=== PATIENT | female | born 1975 | race Caucasian/White ===

== ENCOUNTER 2020-09-06 18:32 | Emergency (ER) | payer BC, SELFPAY ==
[2020-09-06 18:52] VITALS: BP 190/102; PULSE 79; RESP 14; TEMP 36.1; O2SAT 100; BMI 31.2
--- NOTE | 2020-09-06 19:03 | XRR_ITS ---
PROCEDURE INFORMATION: Exam: XR Chest, 2 Views Exam date and time: 09/06/2020 7:26 PM Age: 45 years old Clinical indication: Condition or disease; Other: Hypertension; Patient HX: HTN x 1 week TECHNIQUE: Imaging protocol: XR of the chest Views: 2 views. COMPARISON: [facility] Chest 2 views 12/13/2017 3:59 PM FINDINGS: Lungs: Unremarkable. No consolidation. Pleural spaces: Unremarkable. No pleural effusion. No pneumothorax. Heart/Mediastinum: Unremarkable. No cardiomegaly. Bones/joints: Unremarkable. XR/XR chest 2V* [id number] IMPRESSION: No acute findings.
[2020-09-06 19:36] VITALS: BP 167/101; PULSE 79; RESP 16; O2SAT 98
[2020-09-06 19:54] LABS: Basophils # 0.1 10^3/uL (0.0-0.1); Basophils % 0.9 %; Eosinophils # 0.3 10^3/uL (0.0-0.8); Eosinophils % 3.6 %; Hematocrit 43.3 % (37.0-47.0); Hemoglobin 14.1 g/dL (11.5-15.3); Lymphocytes # 2.2 10^3/uL (0.8-4.8); Mean Corpuscular HGB Conc 32.6 g/dL (30.0-36.0); Mean Corpuscular Hemoglobin 29.4 pg (28.0-34.0); Mean Corpuscular Volume 90.2 fL (81-99); Mean Platelet Volume 10.6 fL (7.4-10.4); Monocytes # 0.6 10^3/uL (0.2-0.9); Monocytes % 7.9 %; Neutrophils # 4.59 10^3/uL (1.8-7.7); Neutrophils % 59.3 %; Nucleated Red Blood Cells % 0 %; Platelet Count 258 10^3/cmm (130-400); White Blood Count 7.7 10^3/uL (4.0-10.0)
[2020-09-06 20:13] LABS: Troponin(5th) Baseline 6 ng/L (0-10)
[2020-09-06 20:18] LABS: Add Urine Microscopic? NO
[2020-09-06 20:22] LABS: Alanine Aminotransferase 11 U/L (0-33); Albumin Level 4.4 g/dL (3.5-5.2); Alkaline Phosphatase 54 IU/L (35-105); Aspartate Amino Transferase 13 U/L (0-32); Blood Urea Nitrogen 8 mg/dL (6-20); Calcium 9.7 mg/dL (8.5-10.5); Carbon Dioxide 27 mmol/L (22-29); Chloride 100 mmol/L (98-107); Globulin 2.7 g/dL (1.3-4.6); Glomerular Filtration Rate 108.1 mL/min (90-130); Glucose 89 mg/dL (65-115); NT Pro B Type Natriuretic Pept 55 pg/mL (0-125); Osmolality Calculated 282 mOsm/kg (285-295); Sodium 137 mmol/L (136-145); Thyroid Stimulating Hormone 1.96 uIU/mL (0.27-4.20); Total Bilirubin 0.4 mg/dL (0.15-1.2); Total Protein 7.1 g/dL (6.6-8.7)
[2020-09-06 20:24] LABS: Bilirubin Urine Neg (Negative); Blood Urine Neg (Negative); Glucose Urine UA Norm (Normal); HCG Qualitative Urine. Negative (Negative); Ketones Urine Negative (Negative); Leukocyte Esterase Urine Negative (Negative); Nitrate Urine Negative (Negative); Protein Urine Neg (Negative); Urine Appearance Clear (CLEAR); Urine Color Straw (Yellow); Urobilinogen Urine Norm (Negative); pH Urine 5 (5-7)
[2020-09-06 20:48] VITALS: BP 187/101; PULSE 73; O2SAT 100
--- NOTE | 2020-09-06 20:52 | W.ED.GENADLT ---
HPI - General Adult General: Chief complaint: General Medical Stated complaint: HTN Time Seen by Provider: 09/06/20 18:54 Source: patient Mode of arrival: ambulatory Limitations: no limitations History of Present Illness: HPI narrative: The patient is a 45-year-old female patient who comes into the emergency department stating that her blood pressure has been elevated in the last 2 weeks. Her systolic blood pressure has been ranging from the 150s to 160s and her primary care provider started her on hydrochlorothiazide 12.5 mg daily. She says her blood pressure is still elevated. She also complains of left sided chest pain that is non-radiating. No nausea or vomiting. No headaches or dizziness. No shortness of breath or difficulty breathing. She drinks multiple cups of coffee every day. Onset (ago): week(s) (2) Associated symptoms: Reports chest pain; Deny dyspnea, headache(s), nausea, rash, palpitations or vomiting Review of Systems General: Reports: 10 or more systems reviewed and unremarkable except in HPI and below Const: Denies: fever(s), chills or body aches Eyes: Denies: change in vision or blurry vision ENMT: Denies: throat pain, enlarged tonsils, odynophagia, hoarseness, mouth pain or swelling of lips/tongue Card: Reports: chest pain; Denies: palpitations, irregular heart rhythm, edema or swelling of feet/ankles Resp: Denies: dyspnea, productive cough or non-productive cough GI: Denies: abdominal pain, nausea or vomiting : Denies: flank pain, difficulty voiding, dysuria, urinary frequency, urinary urgency or urinary hesitancy Musc: Denies: neck pain, back pain or extremity swelling Skin/Breast: Denies: rash, pruritus or erythema Neuro: Denies: headache(s), numbness in extremities or weakness in extremities Endo: Denies: polyuria, polydipsia or tired all the time Physical Exam Const: COMMON NORMALS: no acute distress, average body habitus, patient oriented x3, no limitations, healthy appearing, alert and well nourished HENMT: COMMON NORMALS: normocephalic, atraumatic and moist oral mucous membranes HEAD & SCALP: normocephalic and atraumatic Neck/C-Spine: COMMON NORMALS: no meningeal signs and no JVD Resp: COMMON NORMALS: normal respiratory effort, No retractions, No use of accessory muscles, clear to auscultation bilaterally and percussion normal AUSCULTATION: clear to auscultation bilaterally PERCUSSION: percussion normal Cardio: COMMON NORMALS: no JVD, regular rate, regular rhythm, S1 normal heart sound present, S2 normal heart sound present, No gallops present (Cardio), No clicks present (Cardio), No murmurs present (Cardio), No rub (Cardio) and Peripheral pulses 2+ throughout RATE: regular rate RHYTHM: regular rhythm HEART SOUNDS: S1 normal heart sound present and S2 normal heart sound present PERIPHERAL PULSES: Peripheral pulses 2+ throughout GI: COMMON NORMALS: Normal to inspection, nondistended, normoactive bowel sounds present, Soft to palpation, non-tender, No hepatosplenomegaly present, no masses and no bruits PALPATION: Yes Soft to palpation and Yes No hepatosplenomegaly present Extremity: COMMON NORMALS: normal to inspection, full ROM, capillary refill normal, no calf tenderness and no pedal edema Neuro: COMMON NORMALS: patient oriented x3 SENSORIUM/ORIENTATION: Yes alert MENINGEAL SIGNS: Yes no meningeal signs Skin: COMMON NORMALS: no rashes or lesions noted, no wounds, turgor normal, no jaundice, no petechiae and no mottling GENERAL SKIN EXAM: no rashes or lesions noted and turgor normal Course Reevaluation(s): Reevaluation #1: Discussed her lab and imaging findings with her. Labs unremarkable, chest x-ray unremarkable. Blood pressure is elevated but not high enough to require intervention in the emergency department. Advised her to increase the dose of hydrochlorothiazide to 25 mg daily and continue to check her blood pressures and follow-up with her primary care provider. She has an appointment with her primary care provider next week. She voiced understanding and is in agreement with the plan. Time: 20:52 Vital Signs: Vital signs: Vital Signs Temperature 97.0 F L 09/06/20 18:52 Pulse Rate 84 09/06/20 21:02 Respiratory Rate 16 09/06/20 21:02 Blood Pressure 167/100 09/06/20 21:02 Pulse Oximetry 100 09/06/20 21:02 MDM - General Adult MDM Narrative: Medical decision making narrative: 44-year-old female patient with hypertension. She was recently started on hydrochlorothiazide less than a week ago but her blood pressure still elevated. Evaluation in the emergency department is unremarkable and she is discharged home. Medical Records: Attestation: I reviewed the patient's medical records. Lab Data: Attestation: I reviewed the patient's lab results. Labs: Lab Results 09/06/20 09/06/20 09/06/20 Range/Units 19:45 19:45 19:45 WBC 7.7 (4.0-10.0) 10^3/ uL RBC 4.80 (4.1-5.3) 10^6/u L Hgb 14.1 (11.5-15.3) g/dL Hct 43.3 (37.0-47.0) % MCV 90.2 (81-99) fL MCH 29.4 (28.0-34.0) pg MCHC 32.6 (30.0-36.0) g/dL RDW 12.0 L (12.1-15.1) % Plt Count 258 (130-400) 10^3/c mm MPV 10.6 H (7.4-10.4) fL Neut % (Auto) 59.3 % Lymph % (Auto) 28.0 % [place] % (Auto) 7.9 % Eos % (Auto) 3.6 % Baso % (Auto) 0.9 % Neut # (Auto) 4.59 (1.8-7.7) 10^3/u L Lymph # (Auto) 2.2 (0.8-4.8) 10^3/u L [place] # (Auto) 0.6 (0.2-0.9) 10^3/u L Eos # (Auto) 0.3 (0.0-0.8) 10^3/u L Baso # (Auto) 0.1 (0.0-0.1) 10^3/u L Nucleated RBC % (a uto) 0 % Nucleated RBCs # 0.0 /100WBC Sodium 137 (136-145) mmol/L Potassium 4.0 (3.5-5.1) mmol/L Chloride 100 (98-107) mmol/L Carbon Dioxide 27 (22-29) mmol/L Anion Gap 14.0 (5-19) BUN 8 (6-20) mg/dL Creatinine 0.6 (0.5-0.9) mg/dL GFR Calculation 108.1 (90-130) mL/min Glucose 89 (65-115) mg/dL Calculated Osmolal ity 282 L (285-295) mOsm/k g Calcium 9.7 (8.5-10.5) mg/dL Total Bilirubin 0.4 (0.15-1.2) mg/dL AST 13 (0-32) U/L ALT 11 (0-33) U/L Alkaline Phosphata se 54 (35-105) IU/L Troponin T Baselin e 6 (0-10) ng/L NT-Pro-B Natriuret Pep 55 (0-125) pg/mL Total Protein 7.1 (6.6-8.7) g/dL Albumin 4.4 (3.5-5.2) g/dL Globulin 2.7 (1.3-4.6) g/dL TSH 1.96 (0.27-4.20) uIU/ mL HCG, Qual (Negative) Urine Color (Yellow) Urine Appearance (CLEAR) Urine pH (5-7) Ur Specific Gravit y (1.005-1.030) Urine Protein (Negative) Urine Glucose (UA) (Normal) Urine Ketones (Negative) Urine Blood (Negative) Urine Nitrate (Negative) Urine Bilirubin (Negative) Urine Urobilinogen (Negative) mg/dL Ur Leukocyte Kim ase (Negative) 09/06/20 09/06/20 Range/Units 20:08 20:08 WBC (4.0-10.0) 10^3/ uL RBC (4.1-5.3) 10^6/u L Hgb (11.5-15.3) g/dL Hct (37.0-47.0) % MCV (81-99) fL MCH (28.0-34.0) pg MCHC (30.0-36.0) g/dL RDW (12.1-15.1) % Plt Count (130-400) 10^3/c mm MPV (7.4-10.4) fL Neut % (Auto) % Lymph % (Auto) % [place] % (Auto) % Eos % (Auto) % Baso % (Auto) % Neut # (Auto) (1.8-7.7) 10^3/u L Lymph # (Auto) (0.8-4.8) 10^3/u L [place] # (Auto) (0.2-0.9) 10^3/u L Eos # (Auto) (0.0-0.8) 10^3/u L Baso # (Auto) (0.0-0.1) 10^3/u L Nucleated RBC % (a uto) % Nucleated RBCs # /100WBC Sodium (136-145) mmol/L Potassium (3.5-5.1) mmol/L Chloride (98-107) mmol/L Carbon Dioxide (22-29) mmol/L Anion Gap (5-19) BUN (6-20) mg/dL Creatinine (0.5-0.9) mg/dL GFR Calculation (90-130) mL/min Glucose (65-115) mg/dL Calculated Osmolal ity (285-295) mOsm/k g Calcium (8.5-10.5) mg/dL Total Bilirubin (0.15-1.2) mg/dL AST (0-32) U/L ALT (0-33) U/L Alkaline Phosphata se (35-105) IU/L Troponin T Baselin e (0-10) ng/L NT-Pro-B Natriuret Pep (0-125) pg/mL Total Protein (6.6-8.7) g/dL Albumin (3.5-5.2) g/dL Globulin (1.3-4.6) g/dL TSH (0.27-4.20) uIU/ mL HCG, Qual Negative (Negative) Urine Color Straw (Yellow) Urine Appearance Clear (CLEAR) Urine pH 5 (5-7) Ur Specific Gravit y 1.010 (1.005-1.030) Urine Protein Neg (Negative) Urine Glucose (UA) Norm (Normal) Urine Ketones Negative (Negative) Urine Blood Neg (Negative) Urine Nitrate Negative (Negative) Urine Bilirubin Neg (Negative) Urine Urobilinogen Norm (Negative) mg/dL Ur Leukocyte Kim ase Negative (Negative) Imaging Data^: CXR: Attestation: I personally reviewed and interpreted this imaging study as follows: My impression: No acute findings EKG Data^: EKG 1: Attestation: I personally reviewed and interpreted this EKG as follows: EKG interpretation date: 09/06/20 EKG interpretation time: 19:14 Prior EKG tracings: not available for review Interpretation: Normal sinus rhythm. Heart rate [address] changes. Normal axis. Discharge Plan Discharge Patient Disposition: Home Clinical Impression: Hypertensive urgency Condition: Stable Discharge Orders: Discharge ED (Routine); Ordered 09/06/20 Ordered By: Nikki Aleman Referrals: Rd Sharma DO [Primary Care Provider] - 4-7 days Discharge Diet: Low Salt Discharge Activity: Increase activity as tolerated Patient Instructions: Hypertensive Crisis (ED), Hypertension (ED) Activity Restrictions/Additional Instructions: Return for any new or worsening symptoms. Follow-up with your primary care provider as scheduled next week. I will advise that you stop caffeinated drinks once your blood pressure is better controlled. Increase the dose of the hydrochlorothiazide to 25 mg daily. If your blood pressure continues to go up please return to be evaluated. Coding Level of Care Code ED [employer] for Chg Fwd Exam Comprehensive
[2020-09-06 21:02] VITALS: BP 167/100; PULSE 84; RESP 16; O2SAT 100
== END 2020-09-06 21:04 | disposition home or self-care (01) ==
PROVIDERS: Emergency Provider Family Medicine; PCP Internal Medicine
DX: I16.0 Hypertensive urgency (principal)
CPT/HCPCS: 12345; 71046; 80053; 81003; 81025; 83880; 84443; 84484; 85025; 99283

== ENCOUNTER 2022-09-01 16:55 | Outpatient (CLI) | payer OTHER, SELFPAY ==
[2022-09-05 11:51] LABS: Lymphoma Profile (BBPL) See Report
[2022-09-09 14:03] LABS: PD-L1 (Clone 22C3) by IHC BBPL See Report
== END 2022-09-01 16:56 | disposition home or self-care (01) ==
LOC: LAB 16:55
PROVIDERS: PCP Internal Medicine; Visit Provider Surgery
DX: R22.32 Localized swelling, mass and lump, left upper limb (principal)
CPT/HCPCS: 88184; 88185; 88309; 88341; 88342

== ENCOUNTER 2022-09-22 08:08 | Oncology outpatient (recurring) (ONCR) | payer SELFPAY | END 2022-09-27 23:59 | disposition home or self-care (01) | LOC: ONCMED 08:08 | PROVIDERS: PCP Internal Medicine; Visit Provider Internal Medicine Hematology & Oncology | DX: C80.1 Malignant (primary) neoplasm, unspecified (principal); C77.3 Secondary and unspecified malignant neoplasm of axilla and upper limb lymph nodes ==

== ENCOUNTER 2022-11-09 17:09 | Outpatient (CLI) | payer OTHER, SELFPAY ==
[2022-11-09 18:21] LABS: Basophils # 0.1 10^3/uL (0.0-0.1); Basophils % 0.9 %; Eosinophils # 0.3 10^3/uL (0.0-0.8); Eosinophils % 3.9 %; Hematocrit 39.7 % (37.0-47.0); Hemoglobin 13.3 g/dL (11.5-15.3); Lymphocytes # 2.3 10^3/uL (0.8-4.8); Lymphocytes % 33.1 %; Mean Corpuscular HGB Conc 33.5 g/dL (30.0-36.0); Mean Corpuscular Hemoglobin 30.9 pg (28.0-34.0); Mean Corpuscular Volume 92.1 fl (81-99); Mean Platelet Volume 9.7 fL (7.4-10.4); Monocytes # 0.6 10^3/uL (0.2-0.9); Monocytes % 8.5 %; Neutrophils # 3.65 10^3/uL (1.8-7.7); Neutrophils % 53.3 %; Nucleated Red Blood Cells % 0 %; Platelet Count 259 10^3/cmm (130-400); Red Blood Count 4.31 10^6/uL (4.1-5.3); White Blood Count 6.9 10^3/uL (4.0-10.0)
[2022-11-09 18:51] LABS: Alanine Aminotransferase 34 U/L (0-33); Albumin Level 4.7 g/dL (3.5-5.2); Alkaline Phosphatase 71 U/L (35-105); Anion Gap 14.2 (5-19); Aspartate Amino Transferase 27 U/L (0-32); Blood Urea Nitrogen 15 mg/dL (6-20); Carbon Dioxide 26 mmol/L (22-29); Chloride 102 mmol/L (98-107); Globulin 2.6 g/dL (1.3-4.6); Glomerular Filtration Rate 132.2 mL/min (90-130); Glucose 88 mg/dL (65-115); Osmolality Calculated 286 mOsm/kg (285-295); Potassium 4.2 mmol/L (3.5-5.1); Sodium 138 mmol/L (136-145); Total Bilirubin 0.4 mg/dL (0.15-1.2); Total Protein 7.3 g/dL (6.6-8.7)
== END 2022-11-09 17:10 | disposition home or self-care (01) ==
LOC: LAB 17:16
PROVIDERS: PCP Internal Medicine; Visit Provider Internal Medicine Hematology & Oncology
DX: C80.1 Malignant (primary) neoplasm, unspecified (principal)
CPT/HCPCS: 36415; 80053; 85025

== ENCOUNTER 2022-11-21 08:00 | Oncology outpatient (recurring) (ONCR) | payer OTHER, SELFPAY ==
[2022-11-21 08:35] VITALS: BMI 30.7
[2022-11-21 08:45] LABS: Basophils # 0.1 10^3/uL (0.0-0.1); Basophils % 1.3 %; Eosinophils # 0.3 10^3/uL (0.0-0.8); Eosinophils % 6.5 %; Hematocrit 39.2 % (37.0-47.0); Hemoglobin 13.3 g/dL (11.5-15.3); Lymphocytes # 1.8 10^3/uL (0.8-4.8); Lymphocytes % 34.1 %; Mean Corpuscular HGB Conc 33.9 g/dL (30.0-36.0); Mean Corpuscular Hemoglobin 30.9 pg (28.0-34.0); Mean Corpuscular Volume 91.2 fl (81-99); Mean Platelet Volume 9.8 fL (7.4-10.4); Monocytes # 0.5 10^3/uL (0.2-0.9); Monocytes % 8.8 %; Neutrophils # 2.56 10^3/uL (1.8-7.7); Neutrophils % 49.1 %; Nucleated Red Blood Cells % 0 %; Platelet Count 232 10^3/cmm (130-400); White Blood Count 5.2 10^3/uL (4.0-10.0)
[2022-11-21 09:10] LABS: Alanine Aminotransferase 21 U/L (0-33); Albumin Level 4.6 g/dL (3.5-5.2); Alkaline Phosphatase 67 U/L (35-105); Anion Gap 14.3 (5-19); Aspartate Amino Transferase 18 U/L (0-32); Blood Urea Nitrogen 12 mg/dL (6-20); Calcium 9.5 mg/dL (8.5-10.5); Carbon Dioxide 26 mmol/L (22-29); Chloride 103 mmol/L (98-107); Creatinine Clr Calc Pharmacy 148.8028; Globulin 2.5 g/dL (1.3-4.6); Glomerular Filtration Rate 132.2 mL/min (90-130); Glucose 91 mg/dL (65-115); Immunoglobulin IGG 957 mg/dL (700-1600); Osmolality Calculated 287 mOsm/kg (285-295); Potassium 4.3 mmol/L (3.5-5.1); Sodium 139 mmol/L (136-145); Thyroid Stimulating Hormone 1.17 uIU/mL (0.27-4.20); Total Bilirubin 0.4 mg/dL (0.15-1.2); Total Protein 7.1 g/dL (6.6-8.7)
[2022-11-21 09:28] LABS: Hepatitis A Antibody IgM Non-Reactive (Nonreactive); Hepatitis B Core AB, Total Non-Reactive (Nonreactive); Hepatitis B Surface Antigen Non-Reactive (Nonreactive); Hepatitis C Virus Antibody Non-Reactive (Nonreactive)
[2022-11-21 09:30] LABS: Hepatitis B Surface AB < 3.5 (11.5-1000)
[2022-11-21 11:29] LABS: Cortisol Random 12.98 ug/dL (2.47-19.5)
[2022-11-21] MEDS: acetaminophen 325 mg Tablet 650 MG PO (11:36)
[2022-11-21] MEDS: sodium chloride 0.9% 250 ML 75 ML IV (11:36)
[2022-11-21] MEDS: diphenhydrAMINE 50 mg/mL SDV 1mL 25 MG IVP (11:37)
[2022-11-21] MEDS: dexamethasone 20 MG in sodium chloride 0.9% 50 ML 188 MG IV (11:38)
[2022-11-21] MEDS: famotidine 20 mg/2 mL INJ IVP (11:38)
[2022-11-21] MEDS: palonosetron 0.25 mg/5 mL SDV IVP (11:38)
[2022-11-21] MEDS: pembrolizumab 200 MG in sodium chloride 0.9% 250 ML 516 MG IV (12:13)
[2022-11-21] MEDS: PACLitaxeL 152 MG in sodium chloride 0.9%(non-DEHP) 250 ML 275.33 MG IV (13:09)
[2022-11-21] MEDS: diphenhydrAMINE 50 mg/mL SDV 1mL IVP (13:20)
[2022-11-21 14:15] VITALS: BP 158/69; PULSE 74; RESP 16; TEMP 36.2; O2SAT 99
== END 2022-11-21 23:59 | disposition home or self-care (01) ==
PROVIDERS: Nurse Practitioner Family; PCP Internal Medicine; Visit Provider Internal Medicine Hematology & Oncology
DX: Z51.12 Encounter for antineoplastic immunotherapy (principal); C80.1 Malignant (primary) neoplasm, unspecified; C77.3 Secondary and unspecified malignant neoplasm of axilla and upper limb lymph nodes
CPT/HCPCS: 80053; 82533; 82784; 84443; 85025; 86705; 86706; 86709; 86803; 87340; 96375; 96411; 96413; J1100; J1200; J2469; J2930; J3490; J7050; J9267; J9271

== ENCOUNTER 2022-11-24 08:00 | Oncology outpatient (recurring) (ONCR) | payer OTHER, SELFPAY ==
[2022-11-24 08:16] VITALS: BP 154/95; PULSE 76; TEMP 36.9; O2SAT 98
[2022-11-24] MEDS: sodium chloride 0.9% 250 ML 100 ML IV (08:51)
[2022-11-24] MEDS: palonosetron 0.25 mg/5 mL SDV IV (08:52)
[2022-11-24] MEDS: paclitaxel protein-bound 190 MG in empty flexible container 1 EACH 76 MG IV (09:19)
[2022-11-24] MEDS: CARBOplatin 230 MG in sodium chloride 0.9% 500 ML 523 MG IV (10:13)
[2022-11-24 11:32] VITALS: BP 145/88; PULSE 84; RESP 18; TEMP 36.9; O2SAT 99
== END 2022-11-27 23:59 | disposition home or self-care (01) ==
PROVIDERS: PCP Electrodiagnostic Medicine; Visit Provider Internal Medicine Hematology & Oncology
DX: C80.1 Malignant (primary) neoplasm, unspecified (principal)
CPT/HCPCS: 96367; 96375; 96413; 96417; J1100; J2469; J7040; J7050; J9045; J9264

== ENCOUNTER 2022-12-15 08:00 | Oncology outpatient (recurring) (ONCR) | payer OTHER, SELFPAY ==
[2022-12-01 10:24] LABS: Basophils % 0.8 %; Eosinophils # 0.3 10^3/uL (0.0-0.8); Eosinophils % 6.1 %; Hematocrit 35.5 % (37.0-47.0); Hemoglobin 11.9 g/dL (11.5-15.3); Lymphocytes # 1.6 10^3/uL (0.8-4.8); Lymphocytes % 31.4 %; Mean Corpuscular HGB Conc 33.5 g/dL (30.0-36.0); Mean Corpuscular Hemoglobin 30.4 pg (28.0-34.0); Mean Corpuscular Volume 90.6 fl (81-99); Mean Platelet Volume 10.1 fL (7.4-10.4); Monocytes # 0.4 10^3/uL (0.2-0.9); Monocytes % 7.7 %; Neutrophils # 2.69 10^3/uL (1.8-7.7); Neutrophils % 53.2 %; Nucleated Red Blood Cells % 0 %; Platelet Count 223 10^3/cmm (130-400); Red Blood Count 3.92 10^6/uL (4.1-5.3); Red Cell Distribution Width 11.5 % (12.1-15.1); White Blood Count 5.1 10^3/uL (4.0-10.0)
[2022-12-01 10:40] LABS: Alanine Aminotransferase 27 U/L (0-33); Albumin Level 4.2 g/dL (3.5-5.2); Alkaline Phosphatase 55 U/L (35-105); Anion Gap 15.3 (5-19); Aspartate Amino Transferase 17 U/L (0-32); Blood Urea Nitrogen 11 mg/dL (6-20); Calcium 9.2 mg/dL (8.5-10.5); Carbon Dioxide 24 mmol/L (22-29); Chloride 99 mmol/L (98-107); Creatinine Clr Calc Pharmacy 149.0013; Globulin 2.4 g/dL (1.3-4.6); Glomerular Filtration Rate 132.2 mL/min (90-130); Glucose 94 mg/dL (65-115); Osmolality Calculated 277 mOsm/kg (285-295); Potassium 4.3 mmol/L (3.5-5.1); Sodium 134 mmol/L (136-145); Total Bilirubin 0.4 mg/dL (0.15-1.2); Total Protein 6.6 g/dL (6.6-8.7)
[2022-12-01] MEDS: sodium chloride 0.9% 250 ML 100 ML IV (13:28)
[2022-12-01] MEDS: acetaminophen 325 mg Tablet 650 MG PO (13:29)
[2022-12-01] MEDS: diphenhydrAMINE 50 mg/mL SDV 1mL 25 MG IVP (13:30)
[2022-12-01] MEDS: famotidine 20 mg/2 mL INJ IVP (13:31)
[2022-12-01] MEDS: palonosetron 0.25 mg/5 mL SDV IVP (13:36)
[2022-12-01] MEDS: paclitaxel protein-bound 190 MG in empty flexible container 1 EACH 76 MG IV (13:57)
[2022-12-01] MEDS: CARBOplatin 230 MG in sodium chloride 0.9% 500 ML 523 MG IV (14:36)
[2022-12-01 16:00] VITALS: BP 120/82; PULSE 80; TEMP 36.8; O2SAT 99
[2022-12-08 11:59] LABS: Basophils # 0.1 10^3/uL (0.0-0.1); Eosinophils # 0.2 10^3/uL (0.0-0.8); Eosinophils % 5.3 %; Hematocrit 34.3 % (37.0-47.0); Hemoglobin 11.7 g/dL (11.5-15.3); Lymphocytes # 1.3 10^3/uL (0.8-4.8); Mean Corpuscular HGB Conc 34.1 g/dL (30.0-36.0); Mean Corpuscular Volume 90.7 fl (81-99); Mean Platelet Volume 9.9 fL (7.4-10.4); Monocytes # 0.4 10^3/uL (0.2-0.9); Monocytes % 10.2 %; Neutrophils # 1.49 10^3/uL (1.8-7.7); Neutrophils % 43.6 %; Nucleated Red Blood Cells % 0 %; Platelet Count 225 10^3/cmm (130-400); Red Blood Count 3.78 10^6/uL (4.1-5.3); Red Cell Distribution Width 11.6 % (12.1-15.1); White Blood Count 3.4 10^3/uL (4.0-10.0)
[2022-12-08 12:25] LABS: Alanine Aminotransferase 35 U/L (0-33); Albumin Level 4.4 g/dL (3.5-5.2); Alkaline Phosphatase 54 U/L (35-105); Aspartate Amino Transferase 26 U/L (0-32); Blood Urea Nitrogen 14 mg/dL (6-20); Calcium 9.1 mg/dL (8.5-10.5); Carbon Dioxide 27 mmol/L (22-29); Chloride 101 mmol/L (98-107); Globulin 2.3 g/dL (1.3-4.6); Glomerular Filtration Rate 132.2 mL/min (90-130); Glucose 89 mg/dL (65-115); Osmolality Calculated 282 mOsm/kg (285-295); Sodium 136 mmol/L (136-145); Total Bilirubin 0.3 mg/dL (0.15-1.2); Total Protein 6.7 g/dL (6.6-8.7)
[2022-12-08] MEDS: acetaminophen 325 mg Tablet 650 MG PO (14:02)
[2022-12-08] MEDS: famotidine 20 mg/2 mL INJ IVP (14:03)
[2022-12-08] MEDS: diphenhydrAMINE 50 mg/mL SDV 1mL 25 MG IVP (14:04)
[2022-12-08] MEDS: palonosetron 0.25 mg/5 mL SDV IVP (14:07)
[2022-12-08] MEDS: sodium chloride 0.9% (100 ml) 100 ML 50 ML (14:17)
[2022-12-08] MEDS: paclitaxel protein-bound 190 MG in empty flexible container 1 EACH 76 MG IV (15:03)
[2022-12-08] MEDS: CARBOplatin 230 MG in sodium chloride 0.9% 500 ML 523 MG IV (15:38)
[2022-12-09] MEDS: filgrastim-sndz 480 mcg/0.8 mL Syringe SUBCUT (08:04)
[2022-12-09 08:18] VITALS: BP 128/84; PULSE 88; TEMP 37.1; O2SAT 99
[2022-12-12] MEDS: filgrastim-sndz 480 mcg/0.8 mL Syringe SUBCUT (14:08)
[2022-12-13 12:30] VITALS: BP 120/78; PULSE 18; RESP 78; TEMP 36.6; O2SAT 98
[2022-12-13 13:07] LABS: Basophils % 0.2 %; Eosinophils # 0.2 10^3/uL (0.0-0.8); Eosinophils % 1.6 %; Hematocrit 36.4 % (37.0-47.0); Hemoglobin 12.2 g/dL (11.5-15.3); Lymphocytes % 16.8 %; Mean Corpuscular HGB Conc 33.5 g/dL (30.0-36.0); Mean Corpuscular Hemoglobin 30.8 pg (28.0-34.0); Mean Corpuscular Volume 91.9 fl (81-99); Mean Platelet Volume 10.4 fL (7.4-10.4); Monocytes # 0.6 10^3/uL (0.2-0.9); Monocytes % 4.9 %; Neutrophils # 8.21 10^3/uL (1.8-7.7); Neutrophils % 69.5 %; Nucleated Red Blood Cells % 0 %; Platelet Count 308 10^3/cmm (130-400); Red Blood Count 3.96 10^6/uL (4.1-5.3); Red Cell Distribution Width 12.2 % (12.1-15.1); White Blood Count 11.8 10^3/uL (4.0-10.0)
[2022-12-13 13:30] LABS: Slide Review Slide Review Perform
[2022-12-13 13:40] LABS: Alanine Aminotransferase 65 U/L (0-33); Albumin Level 4.5 g/dL (3.5-5.2); Alkaline Phosphatase 94 U/L (35-105); Anion Gap 15.2 (5-19); Aspartate Amino Transferase 40 U/L (0-32); Blood Urea Nitrogen 10 mg/dL (6-20); Calcium 8.9 mg/dL (8.5-10.5); Carbon Dioxide 25 mmol/L (22-29); Chloride 104 mmol/L (98-107); Globulin 2.2 g/dL (1.3-4.6); Glomerular Filtration Rate 171.1 mL/min (90-130); Glucose 80 mg/dL (65-115); Osmolality Calculated 288 mOsm/kg (285-295); Potassium 4.2 mmol/L (3.5-5.1); Sodium 140 mmol/L (136-145); Thyroid Stimulating Hormone 0.85 uIU/mL (0.27-4.20); Total Bilirubin 0.3 mg/dL (0.15-1.2); Total Protein 6.7 g/dL (6.6-8.7)
[2022-12-15 08:12] VITALS: BMI 30.4
[2022-12-15 08:30] LABS: Basophils % 0.4 %; Eosinophils # 0.2 10^3/uL (0.0-0.8); Hematocrit 36.1 % (37.0-47.0); Hemoglobin 11.9 g/dL (11.5-15.3); Lymphocytes # 1.8 10^3/uL (0.8-4.8); Lymphocytes % 24.1 %; Mean Corpuscular Hemoglobin 30.4 pg (28.0-34.0); Mean Corpuscular Volume 92.3 fl (81-99); Monocytes # 0.8 10^3/uL (0.2-0.9); Monocytes % 11.3 %; Neutrophils # 3.66 10^3/uL (1.8-7.7); Neutrophils % 49.3 %; Nucleated Red Blood Cells % 0 %; Platelet Count 300 10^3/cmm (130-400); Red Blood Count 3.91 10^6/uL (4.1-5.3); Red Cell Distribution Width 12.3 % (12.1-15.1); White Blood Count 7.4 10^3/uL (4.0-10.0)
[2022-12-15 08:44] LABS: Alanine Aminotransferase 65 U/L (0-33); Albumin Level 4.5 g/dL (3.5-5.2); Alkaline Phosphatase 96 U/L (35-105); Anion Gap 12.6 (5-19); Aspartate Amino Transferase 36 U/L (0-32); Blood Urea Nitrogen 12 mg/dL (6-20); Calcium 9.5 mg/dL (8.5-10.5); Carbon Dioxide 26 mmol/L (22-29); Chloride 104 mmol/L (98-107); Globulin 2.5 g/dL (1.3-4.6); Glomerular Filtration Rate 132.2 mL/min (90-130); Glucose 90 mg/dL (65-115); Osmolality Calculated 285 mOsm/kg (285-295); Potassium 4.6 mmol/L (3.5-5.1); Sodium 138 mmol/L (136-145); Total Bilirubin 0.2 mg/dL (0.15-1.2)
[2022-12-15] MEDS: sodium chloride 0.9% 250 ML 75 ML IV (10:02)
[2022-12-15] MEDS: acetaminophen 325 mg Tablet 650 MG PO (10:03)
[2022-12-15] MEDS: diphenhydrAMINE 50 mg/mL SDV 1mL 25 MG IVP (10:04)
[2022-12-15] MEDS: famotidine 20 mg/2 mL INJ IVP (10:07)
[2022-12-15] MEDS: palonosetron 0.25 mg/5 mL SDV IVP (10:10)
[2022-12-15] MEDS: pembrolizumab 200 MG in sodium chloride 0.9% 250 ML 516 MG IV (10:40)
[2022-12-15] MEDS: paclitaxel protein-bound 190 MG in empty flexible container 1 EACH 76 MG IV (11:31)
[2022-12-15] MEDS: CARBOplatin 230 MG in sodium chloride 0.9% 500 ML 523 MG IV (12:31)
[2022-12-15 13:50] VITALS: BP 126/86; PULSE 87; RESP 16; TEMP 36.6; O2SAT 99
== END 2022-12-15 23:59 | disposition home or self-care (01) ==
PROVIDERS: Nurse Practitioner Family; PCP Electrodiagnostic Medicine; Visit Provider Internal Medicine Hematology & Oncology
DX: Z51.12 Encounter for antineoplastic immunotherapy (principal); Z51.11 Encounter for antineoplastic chemotherapy; C80.1 Malignant (primary) neoplasm, unspecified; Z79.52 Long term (current) use of systemic steroids; Z79.899 Other long term (current) drug therapy
CPT/HCPCS: 36591; 80053; 84443; 85025; 96372; 96375; 96401; 96413; 96417; J1100; J1200; J1642; J2469; J3490; J7040; J7050; J9045; J9264; J9271; Q5101

== ENCOUNTER 2022-12-22 08:30 | Oncology outpatient (recurring) (ONCR) | payer OTHER, SELFPAY ==
[2022-12-22 08:35] VITALS: BMI 30.1
[2022-12-22 08:44] VITALS: BP 126/87; PULSE 88; RESP 16; TEMP 36.3; O2SAT 98
[2022-12-22 08:45] LABS: Basophils # 0.1 10^3/uL (0.0-0.1); Basophils % 1.7 %; Eosinophils # 0.1 10^3/uL (0.0-0.8); Eosinophils % 2.8 %; Hematocrit 33.1 % (37.0-47.0); Hemoglobin 11.2 g/dL (11.5-15.3); Lymphocytes # 1.2 10^3/uL (0.8-4.8); Lymphocytes % 33.3 %; Mean Corpuscular HGB Conc 33.8 g/dL (30.0-36.0); Mean Corpuscular Hemoglobin 30.9 pg (28.0-34.0); Mean Corpuscular Volume 91.4 fl (81-99); Mean Platelet Volume 10.2 fL (7.4-10.4); Monocytes # 0.4 10^3/uL (0.2-0.9); Neutrophils # 1.79 10^3/uL (1.8-7.7); Neutrophils % 51.1 %; Nucleated Red Blood Cells % 0 %; Platelet Count 190 10^3/cmm (130-400); Red Blood Count 3.62 10^6/uL (4.1-5.3); Red Cell Distribution Width 12.5 % (12.1-15.1); White Blood Count 3.5 10^3/uL (4.0-10.0)
[2022-12-22 09:07] LABS: Alanine Aminotransferase 114 U/L (0-33); Albumin Level 4.3 g/dL (3.5-5.2); Alkaline Phosphatase 127 U/L (35-105); Anion Gap 12.7 (5-19); Aspartate Amino Transferase 49 U/L (0-32); Blood Urea Nitrogen 13 mg/dL (6-20); Calcium 9.3 mg/dL (8.5-10.5); Carbon Dioxide 26 mmol/L (22-29); Chloride 102 mmol/L (98-107); Globulin 2.6 g/dL (1.3-4.6); Glomerular Filtration Rate 132.2 mL/min (90-130); Glucose 97 mg/dL (65-115); Osmolality Calculated 282 mOsm/kg (285-295); Potassium 4.7 mmol/L (3.5-5.1); Sodium 136 mmol/L (136-145); Total Bilirubin 0.4 mg/dL (0.15-1.2); Total Protein 6.9 g/dL (6.6-8.7)
[2022-12-22 10:34] VITALS: BP 124/85; PULSE 79; RESP 16; TEMP 36.7; O2SAT 99
== END 2022-12-28 23:59 | disposition home or self-care (01) ==
PROVIDERS: Internal Medicine Medical Oncology; PCP Electrodiagnostic Medicine; Visit Provider Internal Medicine Hematology & Oncology
DX: C80.1 Malignant (primary) neoplasm, unspecified (principal)
CPT/HCPCS: 80053; 85025; J1642

== ENCOUNTER 2023-01-10 12:37 | Outpatient (CLI) | payer OTHER, SELFPAY ==
--- NOTE | 2023-01-10 12:45 | USCV_ITS ---
Erica Marlow Age: 47 Gender: F : 1975 Exam Date: 01/10/2023 13:11 Ordering Phys: Virginia Richards MD Technologist: CT Exam Location: [facility] – [place] Indication: high risk med baseline BP: 130 / 65 HR: 90 Rhythm: Sinus Technical Quality: MEASUREMENTS (Male / Female) Normal Values 2D ECHO LV Diastolic Diameter PLAX 4.1 cm 4.2 - 5.9 / 3.9 - 5.3 cm LV Systolic Diameter PLAX 2.5 cm LV Chamber Size 4.7 cm IVS Diastolic Thickness 0.8 cm 0.6 - 1.0 / 0.6 - 0.9 cm IVS Systolic Thickness 1.6 cm LVPW Diastolic Thickness 0.8 cm 0.6 - 1.0 / 0.6 - 0.9 cm LVPW Systolic Thickness 2.0 cm RV Chamber Size 3.5 cm LVOT Diameter 2.0 cm LV Ejection Fraction 2D Teich 70.2 % LV Ejection Fraction MOD 2C 60.0 % LV Ejection Fraction 2C AL 60.1 % LA Diameter 3.1 cm LA Width 4.0 cm LA Height 4.0 cm RA Width 3.0 cm RA Height 4.1 cm Aorta at Sinotubular Diameter 2.2 cm IVC Diameter 1.6 cm M-MODE Aortic Annulus Diameter 2.9 cm LA Ao Ratio MM 1.3 MV E Point Septal Separation 0.3 cm DOPPLER AV Peak Velocity 151.0 cm/s LVOT Peak Velocity 109.0 cm/s AV Area Cont Eq vti 2.6 cm squared AV Area Cont Eq pk 2.3 cm squared MV Area PHT 3.2 cm squared Mitral E to A Ratio 1.2 MV E' Velocity 50.5 cm/s Mitral E to MV E' Ratio 7.6 Mitral E to LV E' Lateral Ratio 7.3 Mitral E to LV E' Septal Ratio 8.0 TR Peak Velocity 172.2 cm/s TR Peak Gradient 11.9 mmHg TR Mean Velocity 146.5 cm/s TR Mean Gradient 8.7 mmHg TR Velocity Time Integral 34.8 cm Right Atrial Pressure 3.0 mmHg Pulmonary Artery Systolic Pressu 14.9 mmHg PV Peak Velocity 132.0 cm/s FINDINGS Left Ventricle Left ventricle is normal in size. LV systolic function is normal with EF of 55 to 60%. No regional wall abnormalities are seen. Right Ventricle Normal in size and function Right Atrium Normal in size Left Atrium Normal in size Mitral Valve Structurally normal mitral valve. Trace mitral regurgitation Aortic Valve Structurally normal aortic valve. No significant stenosis or regurgitation. Tricuspid Valve Mild tricuspid regurgitation. Insufficient TR jet to calculate RVSP. Pulmonic Valve Not well-visualized. Pericardium Normal Aorta Normal in size IVC Appears to be normal CONCLUSIONS LV systolic function is normal with EF of 55 to 60%. Trace mitral regurgitation Mild tricuspid regurgitation No comparison studies are available Liu Snyder MD (Electronically Signed) Final Date: 10 January 2023 17:51 S
== END 2023-01-10 12:38 | disposition home or self-care (01) ==
PROVIDERS: PCP Electrodiagnostic Medicine; Visit Provider Nurse Practitioner Family
DX: Z51.81 Encounter for therapeutic drug level monitoring (principal); Z79.899 Other long term (current) drug therapy; C80.1 Malignant (primary) neoplasm, unspecified; I07.1 Rheumatic tricuspid insufficiency
CPT/HCPCS: 93306

== ENCOUNTER 2023-01-12 09:30 | Oncology outpatient (recurring) (ONCR) | payer OTHER, SELFPAY ==
[2022-12-29 10:10] VITALS: BP 133/83; PULSE 97; RESP 16; TEMP 36.6; O2SAT 99
[2022-12-29 10:19] LABS: Basophils # 0.1 10^3/uL (0.0-0.1); Basophils % 1.4 %; Eosinophils # 0.1 10^3/uL (0.0-0.8); Eosinophils % 3.1 %; Hemoglobin 11.6 g/dL (11.5-15.3); Lymphocytes # 1.4 10^3/uL (0.8-4.8); Lymphocytes % 34.4 %; Mean Corpuscular HGB Conc 34.1 g/dL (30.0-36.0); Mean Corpuscular Volume 90.9 fl (81-99); Mean Platelet Volume 9.3 fL (7.4-10.4); Monocytes # 0.6 10^3/uL (0.2-0.9); Monocytes % 14.4 %; Neutrophils # 1.94 10^3/uL (1.8-7.7); Neutrophils % 46.5 %; Nucleated Red Blood Cells % 0 %; Platelet Count 194 10^3/cmm (130-400); Red Blood Count 3.74 10^6/uL (4.1-5.3); Red Cell Distribution Width 13.1 % (12.1-15.1); White Blood Count 4.2 10^3/uL (4.0-10.0)
[2022-12-29 10:57] LABS: Alanine Aminotransferase 83 U/L (0-33); Albumin Level 4.2 g/dL (3.5-5.2); Alkaline Phosphatase 140 U/L (35-105); Anion Gap 13.5 (5-19); Aspartate Amino Transferase 38 U/L (0-32); Blood Urea Nitrogen 16 mg/dL (6-20); Calcium 9.2 mg/dL (8.5-10.5); Carbon Dioxide 25 mmol/L (22-29); Chloride 101 mmol/L (98-107); Globulin 2.5 g/dL (1.3-4.6); Glomerular Filtration Rate 171.1 mL/min (90-130); Glucose 108 mg/dL (65-115); Osmolality Calculated 282 mOsm/kg (285-295); Potassium 4.5 mmol/L (3.5-5.1); Sodium 135 mmol/L (136-145); Total Bilirubin 0.4 mg/dL (0.15-1.2); Total Protein 6.7 g/dL (6.6-8.7)
[2023-01-09 08:10] VITALS: BP 126/88; PULSE 88; RESP 18; TEMP 36.2; O2SAT 98
[2023-01-09 08:31] LABS: Basophils # 0.1 10^3/uL (0.0-0.1); Basophils % 1.5 %; Eosinophils # 0.5 10^3/uL (0.0-0.8); Eosinophils % 10.3 %; Hematocrit 36.3 % (37.0-47.0); Hemoglobin 12.2 g/dL (11.5-15.3); Lymphocytes # 1.7 10^3/uL (0.8-4.8); Lymphocytes % 36.2 %; Mean Corpuscular HGB Conc 33.6 g/dL (30.0-36.0); Mean Corpuscular Hemoglobin 31.2 pg (28.0-34.0); Mean Corpuscular Volume 92.8 fl (81-99); Mean Platelet Volume 9.3 fL (7.4-10.4); Monocytes # 0.4 10^3/uL (0.2-0.9); Monocytes % 9.2 %; Neutrophils # 2.04 10^3/uL (1.8-7.7); Neutrophils % 42.6 %; Nucleated Red Blood Cells % 0 %; Platelet Count 159 10^3/cmm (130-400); Red Blood Count 3.91 10^6/uL (4.1-5.3); Red Cell Distribution Width 12.8 % (12.1-15.1); White Blood Count 4.8 10^3/uL (4.0-10.0)
[2023-01-09 08:50] LABS: Alanine Aminotransferase 79 U/L (0-33); Albumin Level 4.2 g/dL (3.5-5.2); Alkaline Phosphatase 162 U/L (35-105); Anion Gap 12.1 (5-19); Aspartate Amino Transferase 37 U/L (0-32); Blood Urea Nitrogen 15 mg/dL (6-20); Calcium 9.2 mg/dL (8.5-10.5); Carbon Dioxide 25 mmol/L (22-29); Chloride 103 mmol/L (98-107); Globulin 2.5 g/dL (1.3-4.6); Glomerular Filtration Rate 171.1 mL/min (90-130); Glucose 92 mg/dL (65-115); Osmolality Calculated 282 mOsm/kg (285-295); Potassium 4.1 mmol/L (3.5-5.1); Sodium 136 mmol/L (136-145); Thyroid Stimulating Hormone 1.41 uIU/mL (0.27-4.20); Total Bilirubin 0.4 mg/dL (0.15-1.2); Total Protein 6.7 g/dL (6.6-8.7)
[2023-01-12 10:06] VITALS: BP 131/85; PULSE 81; RESP 18; TEMP 36.3; O2SAT 100
[2023-01-12 10:29] LABS: Basophils # 0.1 10^3/uL (0.0-0.1); Eosinophils # 0.4 10^3/uL (0.0-0.8); Eosinophils % 7.7 %; Hemoglobin 12.9 g/dL (11.5-15.3); Lymphocytes # 1.6 10^3/uL (0.8-4.8); Lymphocytes % 32.9 %; Mean Corpuscular HGB Conc 33.9 g/dL (30.0-36.0); Mean Corpuscular Hemoglobin 31.4 pg (28.0-34.0); Mean Corpuscular Volume 92.5 fl (81-99); Mean Platelet Volume 9.5 fL (7.4-10.4); Monocytes # 0.6 10^3/uL (0.2-0.9); Neutrophils # 2.28 10^3/uL (1.8-7.7); Neutrophils % 46.2 %; Nucleated Red Blood Cells % 0 %; Platelet Count 163 10^3/cmm (130-400); Red Blood Count 4.11 10^6/uL (4.1-5.3); Red Cell Distribution Width 12.8 % (12.1-15.1); White Blood Count 4.9 10^3/uL (4.0-10.0)
[2023-01-12 10:54] LABS: Alanine Aminotransferase 95 U/L (0-33); Albumin Level 4.4 g/dL (3.5-5.2); Alkaline Phosphatase 162 U/L (35-105); Anion Gap 12.2 (5-19); Aspartate Amino Transferase 46 U/L (0-32); Blood Urea Nitrogen 16 mg/dL (6-20); Calcium 9.7 mg/dL (8.5-10.5); Carbon Dioxide 27 mmol/L (22-29); Chloride 103 mmol/L (98-107); Globulin 2.8 g/dL (1.3-4.6); Glomerular Filtration Rate 132.2 mL/min (90-130); Glucose 75 mg/dL (65-115); Osmolality Calculated 286 mOsm/kg (285-295); Potassium 4.2 mmol/L (3.5-5.1); Sodium 138 mmol/L (136-145); Total Bilirubin 0.8 mg/dL (0.15-1.2); Total Protein 7.2 g/dL (6.6-8.7)
[2023-01-12] MEDS: sodium chloride 0.9% 250 ML 75 ML IV (12:38)
[2023-01-12] MEDS: acetaminophen 325 mg Tablet 650 MG PO (12:39)
[2023-01-12] MEDS: famotidine 20 mg/2 mL INJ IVP (12:40)
[2023-01-12] MEDS: diphenhydrAMINE 50 mg/mL SDV 1mL 25 MG IVP (12:42)
[2023-01-12] MEDS: palonosetron 0.25 mg/5 mL SDV IVP (12:45)
[2023-01-12] MEDS: dexamethasone 20 MG in sodium chloride 0.9% 50 ML 188 MG IV (13:15)
[2023-01-12] MEDS: pembrolizumab 200 MG in sodium chloride 0.9% 250 ML 516 MG IV (13:54)
[2023-01-12] MEDS: paclitaxel protein-bound 190 MG in empty flexible container 1 EACH 76 MG IV (14:42)
[2023-01-12 15:14] LABS: CA 15-3 25.8 U/mL (0-25)
[2023-01-12] MEDS: CARBOplatin 230 MG in sodium chloride 0.9% 500 ML 523 MG IV (15:25)
[2023-01-12 16:55] VITALS: BP 128/85; PULSE 88; RESP 18; TEMP 36.3; O2SAT 98
== END 2023-01-12 23:59 | disposition home or self-care (01) ==
PROVIDERS: Internal Medicine Medical Oncology; PCP Electrodiagnostic Medicine; Visit Provider Internal Medicine Hematology & Oncology
DX: Z51.11 Encounter for antineoplastic chemotherapy (principal); Z51.12 Encounter for antineoplastic immunotherapy; C80.1 Malignant (primary) neoplasm, unspecified
CPT/HCPCS: 80053; 84443; 85025; 86300; 96367; 96375; 96413; 96417; J1100; J1200; J1642; J2469; J3490; J7040; J7050; J9045; J9264; J9271

== ENCOUNTER 2023-01-26 08:00 | Oncology outpatient (recurring) (ONCR) | payer OTHER, SELFPAY ==
[2023-01-19 08:04] VITALS: BP 129/84; PULSE 85; RESP 18; TEMP 36.2; O2SAT 100
[2023-01-19 08:18] LABS: Basophils % 1.2 %; Eosinophils # 0.2 10^3/uL (0.0-0.8); Eosinophils % 7.3 %; Hematocrit 33.4 % (37.0-47.0); Hemoglobin 11.3 g/dL (11.5-15.3); Lymphocytes # 1.2 10^3/uL (0.8-4.8); Lymphocytes % 37.6 %; Mean Corpuscular HGB Conc 33.8 g/dL (30.0-36.0); Mean Corpuscular Volume 91.8 fl (81-99); Mean Platelet Volume 9.1 fL (7.4-10.4); Monocytes # 0.2 10^3/uL (0.2-0.9); Monocytes % 7.3 %; Neutrophils # 1.53 10^3/uL (1.8-7.7); Neutrophils % 46.3 %; Nucleated Red Blood Cells % 0 %; Platelet Count 218 10^3/cmm (130-400); Red Blood Count 3.64 10^6/uL (4.1-5.3); Red Cell Distribution Width 11.9 % (12.1-15.1); White Blood Count 3.3 10^3/uL (4.0-10.0)
[2023-01-19 09:00] LABS: Alanine Aminotransferase 51 U/L (0-33); Alkaline Phosphatase 106 U/L (35-105); Aspartate Amino Transferase 24 U/L (0-32); Blood Urea Nitrogen 13 mg/dL (6-20); Carbon Dioxide 26 mmol/L (22-29); Chloride 103 mmol/L (98-107); Globulin 2.5 g/dL (1.3-4.6); Glomerular Filtration Rate 132.2 mL/min (90-130); Glucose 89 mg/dL (65-115); Osmolality Calculated 284 mOsm/kg (285-295); Sodium 137 mmol/L (136-145); Total Bilirubin 0.5 mg/dL (0.15-1.2); Total Protein 6.5 g/dL (6.6-8.7)
[2023-01-19 09:20] LABS: Slide Review Slide Review Perform
[2023-01-19 09:57] VITALS: BP 129/86; PULSE 75; RESP 16; TEMP 36.6; O2SAT 99
[2023-01-19] MEDS: acetaminophen 325 mg Tablet 650 MG PO (10:19)
[2023-01-19] MEDS: sodium chloride 0.9% 250 ML 75 ML IV (10:20)
[2023-01-19] MEDS: diphenhydrAMINE 50 mg/mL SDV 1mL 25 MG IVP (10:21)
[2023-01-19] MEDS: famotidine 20 mg/2 mL INJ IVP (10:23)
[2023-01-19] MEDS: dexamethasone 20 MG in sodium chloride 0.9% 50 ML 188 MG IV (10:27)
[2023-01-19] MEDS: palonosetron 0.25 mg/5 mL SDV IVP (10:27)
[2023-01-19] MEDS: paclitaxel protein-bound 190 MG in empty flexible container 1 EACH 76 MG IV (11:04)
[2023-01-19] MEDS: CARBOplatin 230 MG in sodium chloride 0.9% 500 ML 523 MG IV (11:41)
[2023-01-19 12:50] VITALS: BP 123/78; PULSE 80; RESP 16; TEMP 36.4; O2SAT 97
[2023-01-20] MEDS: filgrastim-sndz 480 mcg/0.8 mL Syringe SUBCUT (09:41)
[2023-01-20 09:44] VITALS: BP 157/100; PULSE 105; RESP 16; TEMP 36.7; O2SAT 98
[2023-01-23 14:36] VITALS: BP 130/90; PULSE 89; RESP 18; TEMP 36.3; O2SAT 99
[2023-01-23] MEDS: filgrastim-sndz 480 mcg/0.8 mL Syringe SUBCUT (14:37)
[2023-01-24] MEDS: filgrastim-sndz 480 mcg/0.8 mL Syringe SUBCUT (14:54)
[2023-01-24 14:55] VITALS: BP 134/80; PULSE 96; RESP 16; TEMP 36.1; O2SAT 98
[2023-01-26 08:00] VITALS: BP 142/83; PULSE 99; RESP 18; TEMP 36.1; O2SAT 98
[2023-01-26 08:10] LABS: Basophils % 0.3 %; Eosinophils # 0.3 10^3/uL (0.0-0.8); Eosinophils % 1.8 %; Hemoglobin 11.2 g/dL (11.5-15.3); Lymphocytes # 2.4 10^3/uL (0.8-4.8); Lymphocytes % 16.2 %; Mean Corpuscular HGB Conc 33.9 g/dL (30.0-36.0); Mean Corpuscular Hemoglobin 31.5 pg (28.0-34.0); Mean Corpuscular Volume 92.7 fl (81-99); Mean Platelet Volume 8.8 fL (7.4-10.4); Monocytes # 1.4 10^3/uL (0.2-0.9); Monocytes % 9.2 %; Neutrophils # 9.88 10^3/uL (1.8-7.7); Nucleated Red Blood Cells % 0.1 %; Platelet Count 321 10^3/cmm (130-400); Red Blood Count 3.56 10^6/uL (4.1-5.3); Red Cell Distribution Width 12.8 % (12.1-15.1); White Blood Count 14.8 10^3/uL (4.0-10.0)
[2023-01-26 08:32] LABS: Alanine Aminotransferase 62 U/L (0-33); Albumin Level 4.1 g/dL (3.5-5.2); Alkaline Phosphatase 136 U/L (35-105); Anion Gap 12.1 (5-19); Aspartate Amino Transferase 26 U/L (0-32); Blood Urea Nitrogen 11 mg/dL (6-20); Calcium 9.5 mg/dL (8.5-10.5); Carbon Dioxide 27 mmol/L (22-29); Chloride 105 mmol/L (98-107); Creatinine Clr Calc Pharmacy 149.2007; Globulin 2.3 g/dL (1.3-4.6); Glomerular Filtration Rate 132.2 mL/min (90-130); Glucose 94 mg/dL (65-115); Osmolality Calculated 289 mOsm/kg (285-295); Potassium 4.1 mmol/L (3.5-5.1); Sodium 140 mmol/L (136-145); Total Bilirubin 0.2 mg/dL (0.15-1.2); Total Protein 6.4 g/dL (6.6-8.7)
[2023-01-26 08:53] LABS: Slide Review Slide Review Perform
[2023-01-26] MEDS: sodium chloride 0.9% 250 ML 75 ML IV (11:11)
[2023-01-26] MEDS: famotidine 20 mg/2 mL INJ IVP (11:12)
[2023-01-26] MEDS: acetaminophen 325 mg Tablet 650 MG PO (11:15)
[2023-01-26] MEDS: palonosetron 0.25 mg/5 mL SDV IVP (11:16)
[2023-01-26] MEDS: diphenhydrAMINE 50 mg/mL SDV 1mL 25 MG IVP (11:18)
[2023-01-26] MEDS: paclitaxel protein-bound 190 MG in empty flexible container 1 EACH 76 MG IV (12:25)
[2023-01-26] MEDS: CARBOplatin 230 MG in sodium chloride 0.9% 500 ML 523 MG IV (13:07)
[2023-01-26 14:30] VITALS: BP 129/86; PULSE 90; RESP 16; TEMP 36.2; O2SAT 99
--- NOTE | 2023-01-26 14:34 | PC.PHAR ---
CARBO SHORTAGE AND TREATMENT PLAN CYCLE DISCREPANCY: SPENT [address] GARCIA AND CLARA FROM IT TO ADJUST CYCLE DATE ON PATIENT. DUE TO CARBO SHORTAGE AND OTHER DELAYS, PATIENT HAS MISSED ABRAXANE AND CARBO DOSES. LOOKING TO THE [facility], PATIENT HAS RECEIVED THREE DOSES THUS TODAYS [place] COORESPONDS WITH CYCLE 3 DAY 15. ASKED CLARA FROM IT TO WORK WITH NURSING TO MAKE THE ADJUSTMENT. DR GARCIA PLANS TO ENSURE SHE GETS THE CARBO AND ABRAXANE SHE NEEDS PRIOR TO TRANSITIONING TO NEXT LINE OF [place].
== END 2023-01-27 23:59 | disposition home or self-care (01) ==
PROVIDERS: Nurse Practitioner Family; PCP Electrodiagnostic Medicine; Visit Provider Internal Medicine Hematology & Oncology
DX: C80.1 Malignant (primary) neoplasm, unspecified (principal)
CPT/HCPCS: 80053; 85025; 96367; 96372; 96375; 96413; 96417; J1100; J1200; J1642; J2469; J3490; J7040; J7050; J9045; J9264; Q5101

== ENCOUNTER 2023-02-13 10:15 | Oncology outpatient (recurring) (ONCR) | payer OTHER, SELFPAY ==
[2023-02-02 09:43] VITALS: BP 136/87; PULSE 93; RESP 18; TEMP 36.2; O2SAT 99
[2023-02-02 09:54] LABS: Basophils # 0.1 10^3/uL (0.0-0.1); Basophils % 2.8 %; Eosinophils # 0.1 10^3/uL (0.0-0.8); Eosinophils % 2.4 %; Hemoglobin 11.7 g/dL (11.5-15.3); Lymphocytes % 44.8 %; Mean Corpuscular HGB Conc 34.4 g/dL (30.0-36.0); Mean Corpuscular Hemoglobin 31.3 pg (28.0-34.0); Mean Corpuscular Volume 90.9 fl (81-99); Mean Platelet Volume 9.5 fL (7.4-10.4); Monocytes # 0.3 10^3/uL (0.2-0.9); Monocytes % 13.2 %; Neutrophils % 35.9 %; Nucleated Red Blood Cells % 0 %; Platelet Count 205 10^3/cmm (130-400); Red Blood Count 3.74 10^6/uL (4.1-5.3); Red Cell Distribution Width 12.3 % (12.1-15.1); White Blood Count 2.1 10^3/uL (4.0-10.0)
[2023-02-02 10:21] LABS: Alanine Aminotransferase 114 U/L (0-33); Albumin Level 4.4 g/dL (3.5-5.2); Alkaline Phosphatase 127 U/L (35-105); Anion Gap 14.2 (5-19); Aspartate Amino Transferase 49 U/L (0-32); Blood Urea Nitrogen 13 mg/dL (6-20); Calcium 9.5 mg/dL (8.5-10.5); Carbon Dioxide 26 mmol/L (22-29); Chloride 100 mmol/L (98-107); Globulin 2.6 g/dL (1.3-4.6); Glomerular Filtration Rate 132.2 mL/min (90-130); Glucose 91 mg/dL (65-115); Osmolality Calculated 282 mOsm/kg (285-295); Potassium 4.2 mmol/L (3.5-5.1); Sodium 136 mmol/L (136-145); Thyroid Stimulating Hormone 1.21 uIU/mL (0.27-4.20); Total Bilirubin 0.7 mg/dL (0.15-1.2)
[2023-02-02 10:50] LABS: Neutrophils # 0.76 10^3/uL (1.8-7.7)
[2023-02-02 10:51] LABS: Slide Review Slide Review Perform
[2023-02-02] MEDS: filgrastim-sndz 480 mcg/0.8 mL Syringe SUBCUT (11:24)
[2023-02-03] MEDS: filgrastim-sndz 480 mcg/0.8 mL Syringe SUBCUT (09:31)
[2023-02-03 09:40] VITALS: BP 122/84; PULSE 101; TEMP 36.2; O2SAT 98
[2023-02-08 07:51] VITALS: BP 130/84; PULSE 95; RESP 18; TEMP 36.8; O2SAT 99
[2023-02-08 08:09] LABS: Hematocrit 35.4 % (37.0-47.0); Hemoglobin 11.9 g/dL (11.5-15.3); Mean Corpuscular HGB Conc 33.6 g/dL (30.0-36.0); Mean Corpuscular Hemoglobin 31.3 pg (28.0-34.0); Mean Corpuscular Volume 93.2 fl (81-99); Mean Platelet Volume 9.3 fL (7.4-10.4); Platelet Count 301 10^3/cmm (130-400); Red Cell Distribution Width 13.1 % (12.1-15.1); White Blood Count 4.6 10^3/uL (4.0-10.0)
[2023-02-08 08:26] LABS: Alanine Aminotransferase 65 U/L (0-33); Albumin Level 4.4 g/dL (3.5-5.2); Alkaline Phosphatase 148 U/L (35-105); Aspartate Amino Transferase 34 U/L (0-32); Blood Urea Nitrogen 9 mg/dL (6-20); Calcium 9.6 mg/dL (8.5-10.5); Carbon Dioxide 26 mmol/L (22-29); Chloride 103 mmol/L (98-107); Globulin 2.5 g/dL (1.3-4.6); Glomerular Filtration Rate 107.2 mL/min (90-130); Glucose 90 mg/dL (65-115); Osmolality Calculated 284 mOsm/kg (285-295); Sodium 138 mmol/L (136-145); Total Bilirubin 0.3 mg/dL (0.15-1.2); Total Protein 6.9 g/dL (6.6-8.7)
[2023-02-08 08:46] LABS: Slide Review Slide Review Perform
[2023-02-08 08:47] LABS: Band Neutrophils Absolute 0.3 10^3/cmm (0.0-1.2); Eosinophils 0 %; Lymphocytes 39 %; Monocytes Absolute 0.3 10^3/cmm (0.1-0.6); Segmented Neutrophils 22 %; Total Cells Counted 100 (0-100)
[2023-02-08 08:48] LABS: Absolute Neutrophil 1.3 10^3/cmm (1.4-6.5); Giant Platelets Trace; Lymphocytes Absolute 2.1 10^3/cmm (1.2-3.4); Macrocytosis 1+; Platelet Estimate Normal (Normal); Polychromasia 1+
[2023-02-13 10:44] VITALS: BP 135/86; PULSE 98; RESP 18; TEMP 36.4; O2SAT 99
[2023-02-13 10:56] LABS: Basophils # 0.1 10^3/uL (0.0-0.1); Eosinophils # 0.1 10^3/uL (0.0-0.8); Eosinophils % 2.7 %; Hematocrit 37.4 % (37.0-47.0); Hemoglobin 12.4 g/dL (11.5-15.3); Lymphocytes # 1.5 10^3/uL (0.8-4.8); Lymphocytes % 31.1 %; Mean Corpuscular HGB Conc 33.2 g/dL (30.0-36.0); Mean Corpuscular Hemoglobin 30.8 pg (28.0-34.0); Mean Corpuscular Volume 92.8 fl (81-99); Mean Platelet Volume 9.8 fL (7.4-10.4); Monocytes # 0.4 10^3/uL (0.2-0.9); Neutrophils # 2.69 10^3/uL (1.8-7.7); Neutrophils % 55.2 %; Nucleated Red Blood Cells % 0 %; Platelet Count 188 10^3/cmm (130-400); Red Blood Count 4.03 10^6/uL (4.1-5.3); Red Cell Distribution Width 12.9 % (12.1-15.1); White Blood Count 4.9 10^3/uL (4.0-10.0)
[2023-02-13 11:16] LABS: Alanine Aminotransferase 75 U/L (0-33); Albumin Level 4.5 g/dL (3.5-5.2); Alkaline Phosphatase 142 U/L (35-105); Anion Gap 15.3 (5-19); Aspartate Amino Transferase 38 U/L (0-32); Blood Urea Nitrogen 14 mg/dL (6-20); Calcium 9.7 mg/dL (8.5-10.5); Carbon Dioxide 26 mmol/L (22-29); Chloride 101 mmol/L (98-107); Creatinine Clr Calc Pharmacy 124.0024; Globulin 2.6 g/dL (1.3-4.6); Glomerular Filtration Rate 107.2 mL/min (90-130); Glucose 89 mg/dL (65-115); Osmolality Calculated 286 mOsm/kg (285-295); Potassium 4.3 mmol/L (3.5-5.1); Sodium 138 mmol/L (136-145); Total Bilirubin 0.5 mg/dL (0.15-1.2); Total Protein 7.1 g/dL (6.6-8.7)
[2023-02-13] MEDS: sodium chloride 0.9% 250 ML 75 ML IV (12:48)
[2023-02-13] MEDS: acetaminophen 325 mg Tablet 650 MG PO (12:49)
[2023-02-13] MEDS: palonosetron 0.25 mg/5 mL SDV IVP (12:50)
[2023-02-13] MEDS: famotidine 20 mg/2 mL INJ IVP (12:52)
[2023-02-13] MEDS: diphenhydrAMINE 50 mg/mL SDV 1mL 25 MG IVP (12:53)
[2023-02-13] MEDS: pembrolizumab 200 MG in sodium chloride 0.9% 250 ML 516 MG IV (13:13)
[2023-02-13] MEDS: paclitaxel protein-bound 190 MG in empty flexible container 1 EACH 76 MG IV (13:53)
[2023-02-13] MEDS: CARBOplatin 230 MG in sodium chloride 0.9% 500 ML 523 MG IV (14:28)
[2023-02-13 15:47] VITALS: BP 120/79; PULSE 80; RESP 18; TEMP 36.1; O2SAT 99
== END 2023-02-13 23:59 | disposition home or self-care (01) ==
PROVIDERS: Nurse Practitioner Family; PCP Electrodiagnostic Medicine; Visit Provider Internal Medicine Hematology & Oncology
DX: Z51.11 Encounter for antineoplastic chemotherapy (principal); C80.1 Malignant (primary) neoplasm, unspecified
CPT/HCPCS: 80053; 84443; 85007; 85025; 96367; 96372; 96375; 96413; 96417; J1100; J1200; J1642; J2469; J3490; J7040; J7050; J9045; J9264; J9271; Q5101

== ENCOUNTER 2023-02-27 07:30 | Oncology outpatient (recurring) (ONCR) | payer OTHER, SELFPAY ==
[2023-02-14] MEDS: filgrastim-sndz 480 mcg/0.8 mL Syringe SUBCUT (14:33)
[2023-02-14 14:35] VITALS: BP 131/83; PULSE 94; RESP 16; TEMP 36.6; O2SAT 99
[2023-02-15 14:15] VITALS: BP 119/83; PULSE 106; RESP 18; TEMP 36.2; O2SAT 98; O2SAT 99
[2023-02-15] MEDS: filgrastim-sndz 480 mcg/0.8 mL Syringe SUBCUT (14:21)
[2023-02-16 13:58] VITALS: BP 120/78; PULSE 96; TEMP 36.3; O2SAT 96
[2023-02-16] MEDS: filgrastim-sndz 480 mcg/0.8 mL Syringe SUBCUT (14:00)
[2023-02-20 07:51] VITALS: BMI 31.1
[2023-02-20 07:52] VITALS: BP 134/85; PULSE 86; RESP 18; TEMP 36.3; O2SAT 99
[2023-02-20 08:09] LABS: Basophils # 0.1 10^3/uL (0.0-0.1); Basophils % 1.7 %; Eosinophils # 0.3 10^3/uL (0.0-0.8); Eosinophils % 7.5 %; Hematocrit 34.1 % (37.0-47.0); Hemoglobin 11.7 g/dL (11.5-15.3); Lymphocytes # 1.4 10^3/uL (0.8-4.8); Lymphocytes % 34.1 %; Mean Corpuscular HGB Conc 34.3 g/dL (30.0-36.0); Mean Corpuscular Hemoglobin 32.1 pg (28.0-34.0); Mean Corpuscular Volume 93.4 fl (81-99); Mean Platelet Volume 9.6 fL (7.4-10.4); Monocytes # 0.6 10^3/uL (0.2-0.9); Monocytes % 14.7 %; Neutrophils # 1.62 10^3/uL (1.8-7.7); Neutrophils % 38.9 %; Nucleated Red Blood Cells % 0 %; Platelet Count 155 10^3/cmm (130-400); Red Blood Count 3.65 10^6/uL (4.1-5.3); Red Cell Distribution Width 12.5 % (12.1-15.1); White Blood Count 4.2 10^3/uL (4.0-10.0)
[2023-02-20 09:03] VITALS: BP 132/87; PULSE 81; RESP 17; TEMP 36.5; O2SAT 98
[2023-02-20 09:03] LABS: Alanine Aminotransferase 97 U/L (0-33); Albumin Level 4.2 g/dL (3.5-5.2); Alkaline Phosphatase 154 U/L (35-105); Anion Gap 12.2 (5-19); Aspartate Amino Transferase 43 U/L (0-32); Blood Urea Nitrogen 12 mg/dL (6-20); Calcium 9.2 mg/dL (8.5-10.5); Carbon Dioxide 27 mmol/L (22-29); Chloride 103 mmol/L (98-107); Creatinine Clr Calc Pharmacy 149.5995; Globulin 2.2 g/dL (1.3-4.6); Glomerular Filtration Rate 132.2 mL/min (90-130); Glucose 96 mg/dL (65-115); Osmolality Calculated 286 mOsm/kg (285-295); Potassium 4.2 mmol/L (3.5-5.1); Sodium 138 mmol/L (136-145); Thyroid Stimulating Hormone 1.94 uIU/mL (0.27-4.20); Total Bilirubin 0.3 mg/dL (0.15-1.2); Total Protein 6.4 g/dL (6.6-8.7)
[2023-02-20] MEDS: sodium chloride 0.9% 250 ML 100 ML IV (09:38)
[2023-02-20] MEDS: acetaminophen 325 mg Tablet 650 MG PO (09:39)
[2023-02-20] MEDS: diphenhydrAMINE 50 mg/mL SDV 1mL 25 MG IVP (09:40)
[2023-02-20] MEDS: famotidine 20 mg/2 mL INJ IVP (09:42)
[2023-02-20] MEDS: palonosetron 0.25 mg/5 mL SDV IVP (09:44)
[2023-02-20] MEDS: paclitaxel protein-bound 190 MG in empty flexible container 1 EACH 76 MG IV (10:15)
[2023-02-20] MEDS: CARBOplatin 230 MG in sodium chloride 0.9% 500 ML 523 MG IV (11:05)
[2023-02-20 12:21] VITALS: BP 130/84; PULSE 86; RESP 16; TEMP 36.2; O2SAT 99
[2023-02-21] MEDS: filgrastim-sndz 480 mcg/0.8 mL Syringe SUBCUT (14:36)
[2023-02-21 14:46] VITALS: BP 132/87; PULSE 96; TEMP 36.4; O2SAT 99
[2023-02-22] MEDS: filgrastim-sndz 480 mcg/0.8 mL Syringe SUBCUT (15:17)
[2023-02-22 15:20] VITALS: BP 105/71; PULSE 84; RESP 16; TEMP 35.9; O2SAT 96
[2023-02-23 09:55] VITALS: BP 119/83; PULSE 107; RESP 16; TEMP 36.8; O2SAT 97
[2023-02-23] MEDS: filgrastim-sndz 480 mcg/0.8 mL Syringe SUBCUT (10:02)
[2023-02-23 10:07] VITALS: BP 120/71; PULSE 78; RESP 18; TEMP 36.6; O2SAT 98
[2023-02-27 07:45] VITALS: BP 125/80; PULSE 97; RESP 18; TEMP 36.6; O2SAT 97
[2023-02-27 07:48] VITALS: BMI 30.9
[2023-02-27 07:58] LABS: Basophils % 1.5 %; Eosinophils # 0.2 10^3/uL (0.0-0.8); Eosinophils % 6.9 %; Hematocrit 32.1 % (37.0-47.0); Hemoglobin 10.9 g/dL (11.5-15.3); Lymphocytes # 1.1 10^3/uL (0.8-4.8); Lymphocytes % 40.8 %; Mean Corpuscular Hemoglobin 31.8 pg (28.0-34.0); Mean Corpuscular Volume 93.6 fl (81-99); Mean Platelet Volume 8.9 fL (7.4-10.4); Monocytes # 0.5 10^3/uL (0.2-0.9); Monocytes % 17.2 %; Neutrophils % 31.7 %; Nucleated Red Blood Cells % 0 %; Platelet Count 197 10^3/cmm (130-400); Red Blood Count 3.43 10^6/uL (4.1-5.3); Red Cell Distribution Width 12.6 % (12.1-15.1); White Blood Count 2.6 10^3/uL (4.0-10.0)
[2023-02-27 08:17] LABS: Neutrophils # 0.83 10^3/uL (1.8-7.7); Slide Review Slide Review Perform
[2023-02-27 08:22] LABS: Alanine Aminotransferase 103 U/L (0-33); Albumin Level 4.1 g/dL (3.5-5.2); Alkaline Phosphatase 156 U/L (35-105); Anion Gap 15.3 (5-19); Aspartate Amino Transferase 46 U/L (0-32); Blood Urea Nitrogen 14 mg/dL (6-20); Calcium 9.7 mg/dL (8.5-10.5); Carbon Dioxide 27 mmol/L (22-29); Chloride 102 mmol/L (98-107); Creatinine Clr Calc Pharmacy 149.2007; Globulin 2.6 g/dL (1.3-4.6); Glomerular Filtration Rate 132.2 mL/min (90-130); Glucose 99 mg/dL (65-115); Osmolality Calculated 291 mOsm/kg (285-295); Potassium 4.3 mmol/L (3.5-5.1); Sodium 140 mmol/L (136-145); Total Bilirubin 0.4 mg/dL (0.15-1.2); Total Protein 6.7 g/dL (6.6-8.7)
== END 2023-02-27 23:59 | disposition home or self-care (01) ==
PROVIDERS: Nurse Practitioner Family; PCP Electrodiagnostic Medicine; Visit Provider Internal Medicine Hematology & Oncology
DX: C80.1 Malignant (primary) neoplasm, unspecified (principal); Z79.899 Other long term (current) drug therapy
CPT/HCPCS: 80053; 84443; 85025; 96367; 96372; 96375; 96401; 96413; 96417; J1100; J1200; J1642; J2469; J3490; J7040; J7050; J9045; J9264; Q5101

== ENCOUNTER 2023-03-14 13:02 | Oncology outpatient (recurring) (ONCR) | payer OTHER, SELFPAY ==
[2023-02-28 08:15] VITALS: BP 133/86; PULSE 78; TEMP 36.3; O2SAT 99
[2023-02-28 08:34] LABS: Basophils % 1.1 %; Eosinophils # 0.2 10^3/uL (0.0-0.8); Eosinophils % 8.4 %; Hemoglobin 10.9 g/dL (11.5-15.3); Lymphocytes # 1.2 10^3/uL (0.8-4.8); Lymphocytes % 45.6 %; Mean Corpuscular HGB Conc 34.1 g/dL (30.0-36.0); Mean Corpuscular Hemoglobin 32.3 pg (28.0-34.0); Monocytes # 0.4 10^3/uL (0.2-0.9); Monocytes % 15.7 %; Neutrophils % 27.3 %; Nucleated Red Blood Cells % 0 %; Platelet Count 237 10^3/cmm (130-400); Red Blood Count 3.37 10^6/uL (4.1-5.3); Red Cell Distribution Width 12.8 % (12.1-15.1); White Blood Count 2.6 10^3/uL (4.0-10.0)
[2023-02-28 09:07] LABS: Neutrophils # 0.71 10^3/uL (1.8-7.7); Slide Review Slide Review Perform
[2023-02-28] MEDS: sodium chloride 0.9% 250 ML 100 ML IV (09:37)
[2023-02-28] MEDS: acetaminophen 325 mg Tablet 650 MG PO (09:38)
[2023-02-28] MEDS: palonosetron 0.25 mg/5 mL SDV IVP (09:38)
[2023-02-28] MEDS: diphenhydrAMINE 50 mg/mL SDV 1mL 25 MG IVP (09:39)
[2023-02-28] MEDS: famotidine 20 mg/2 mL INJ IVP (09:41)
[2023-02-28] MEDS: paclitaxel protein-bound 190 MG in empty flexible container 1 EACH 76 MG IV (10:27)
[2023-02-28] MEDS: CARBOplatin 230 MG in sodium chloride 0.9% 500 ML 523 MG IV (11:18)
[2023-02-28 12:30] VITALS: BP 130/85; PULSE 87; TEMP 36.2; O2SAT 99
[2023-03-01] MEDS: filgrastim-sndz 480 mcg/0.8 mL Syringe SUBCUT (14:28)
[2023-03-01 14:30] VITALS: BP 125/81; PULSE 94; RESP 16; TEMP 36.2; O2SAT 99
[2023-03-02] MEDS: filgrastim-sndz 480 mcg/0.8 mL Syringe SUBCUT (13:42)
[2023-03-02 13:58] VITALS: BP 126/84; PULSE 95; RESP 18; TEMP 36.2; O2SAT 98
[2023-03-03] MEDS: filgrastim-sndz 480 mcg/0.8 mL Syringe SUBCUT (11:32)
[2023-03-03 11:33] VITALS: BP 141/87; PULSE 110; RESP 16; TEMP 36.2; O2SAT 98
[2023-03-07 07:47] VITALS: BP 127/84; PULSE 79; RESP 16; TEMP 36.6; O2SAT 98
[2023-03-07 07:48] VITALS: BMI 31.2
[2023-03-07 08:08] LABS: Hemoglobin 11.3 g/dL (11.5-15.3); Mean Corpuscular HGB Conc 33.2 g/dL (30.0-36.0); Mean Corpuscular Hemoglobin 32.1 pg (28.0-34.0); Mean Corpuscular Volume 96.6 fl (81-99); Mean Platelet Volume 9.1 fL (7.4-10.4); Platelet Count 306 10^3/cmm (130-400); Red Blood Count 3.52 10^6/uL (4.1-5.3); Red Cell Distribution Width 13.3 % (12.1-15.1); White Blood Count 4.5 10^3/uL (4.0-10.0)
[2023-03-07 08:41] LABS: Alanine Aminotransferase 160 U/L (0-33); Albumin Level 4.4 g/dL (3.5-5.2); Alkaline Phosphatase 176 U/L (35-105); Anion Gap 13.2 (5-19); Aspartate Amino Transferase 65 U/L (0-32); Blood Urea Nitrogen 14 mg/dL (6-20); Calcium 9.7 mg/dL (8.5-10.5); Carbon Dioxide 27 mmol/L (22-29); Chloride 104 mmol/L (98-107); Creatinine Clr Calc Pharmacy 149.9974; Globulin 2.5 g/dL (1.3-4.6); Glomerular Filtration Rate 132.2 mL/min (90-130); Glucose 108 mg/dL (65-115); Osmolality Calculated 291 mOsm/kg (285-295); Potassium 4.2 mmol/L (3.5-5.1); Sodium 140 mmol/L (136-145); Thyroid Stimulating Hormone 2.06 uIU/mL (0.27-4.20); Total Bilirubin 0.2 mg/dL (0.15-1.2); Total Protein 6.9 g/dL (6.6-8.7)
[2023-03-07 08:55] LABS: Slide Review Slide Review Perform
[2023-03-07 08:56] LABS: Absolute Neutrophil 1.9 10^3/cmm (1.4-6.5); Absolute Segmented Neutrophil 1.7 10/cmm (1.6-7.1); Band Neutrophils Absolute 0.2 10^3/cmm (0.0-1.2); Eosinophils 2 %; Lymphocytes 31 %; Lymphocytes Absolute 1.7 10^3/cmm (1.2-3.4); Macrocytosis Trace; Monocytes Absolute 0.6 10^3/cmm (0.1-0.6); Platelet Estimate Normal (Normal); Polychromasia Trace; Segmented Neutrophils 38 %; Total Cells Counted 100 (0-100)
[2023-03-07 10:44] LABS: CA 15-3 39.3 U/mL (0-25)
[2023-03-14 07:55] VITALS: BP 142/91; PULSE 94; RESP 18; TEMP 36.3; O2SAT 99
[2023-03-14 08:04] VITALS: BMI 31.4
[2023-03-14 08:35] LABS: Alanine Aminotransferase 88 U/L (0-33); Albumin Level 4.3 g/dL (3.5-5.2); Alkaline Phosphatase 168 U/L (35-105); Anion Gap 14.2 (5-19); Aspartate Amino Transferase 36 U/L (0-32); Blood Urea Nitrogen 18 mg/dL (6-20); Calcium 9.3 mg/dL (8.5-10.5); Carbon Dioxide 25 mmol/L (22-29); Chloride 104 mmol/L (98-107); Creatinine Clr Calc Pharmacy 150.3961; Globulin 2.5 g/dL (1.3-4.6); Glomerular Filtration Rate 132.2 mL/min (90-130); Glucose 84 mg/dL (65-115); Osmolality Calculated 289 mOsm/kg (285-295); Potassium 4.2 mmol/L (3.5-5.1); Sodium 139 mmol/L (136-145); Total Bilirubin 0.4 mg/dL (0.15-1.2); Total Protein 6.8 g/dL (6.6-8.7)
[2023-03-14] MEDS: sodium chloride 0.9% 250 ML 75 ML IV ×2 (14:12→16:13)
[2023-03-14] MEDS: OLANZapine 5 mg TABLET PO (14:12)
[2023-03-14] MEDS: famotidine 20 mg/2 mL INJ IVP (14:14)
[2023-03-14] MEDS: diphenhydrAMINE 50 mg/mL SDV 1mL 25 MG IVP (14:15)
[2023-03-14] MEDS: palonosetron 0.25 mg/5 mL SDV IVP (14:19)
[2023-03-14] MEDS: fosaprepitant 150 MG in sodium chloride 0.9% 150 ML 300 MG IV (14:43)
[2023-03-14] MEDS: pembrolizumab 200 MG in sodium chloride 0.9% 250 ML 516 MG IV (15:17)
[2023-03-14] MEDS: DOXOrubicin 2 mg/ml MDV 86 MG IVP (15:54)
[2023-03-14] MEDS: pegfilgrastim 6 mg/0.6 mL Kit (onpro) SUBCUT (17:18)
[2023-03-14 17:23] VITALS: BP 128/83; PULSE 72; RESP 16; TEMP 36.2; O2SAT 98
== END 2023-03-14 23:59 | disposition home or self-care (01) ==
PROVIDERS: Internal Medicine Medical Oncology; Nurse Practitioner Family; PCP Electrodiagnostic Medicine; Visit Provider Internal Medicine Hematology & Oncology
DX: Z51.12 Encounter for antineoplastic immunotherapy (principal); C80.1 Malignant (primary) neoplasm, unspecified; Z51.11 Encounter for antineoplastic chemotherapy; C77.3 Secondary and unspecified malignant neoplasm of axilla and upper limb lymph nodes; Z79.899 Other long term (current) drug therapy
CPT/HCPCS: 36591; 80053; 84443; 85007; 85025; 86300; 96367; 96372; 96375; 96377; 96401; 96411; 96413; 96417; J1100; J1200; J1453; J1642; J2469; J2506; J3490; J7040; J7050; J9000; J9045; J9070; J9264; J9271; Q5101

== ENCOUNTER 2023-03-21 07:30 | Oncology outpatient (recurring) (ONCR) | payer OTHER, SELFPAY ==
[2023-03-16 11:51] VITALS: BMI 32.1
[2023-03-16 11:54] VITALS: BP 128/85; PULSE 94; RESP 18; TEMP 36.6; O2SAT 100
[2023-03-16 12:07] LABS: Basophils # 0.1 10^3/uL (0.0-0.1); Basophils % 0.4 %; Eosinophils % 0.1 %; Hematocrit 32.7 % (37.0-47.0); Hemoglobin 10.7 g/dL (11.5-15.3); Lymphocytes # 2.3 10^3/uL (0.8-4.8); Lymphocytes % 6.3 %; Mean Corpuscular HGB Conc 32.7 g/dL (30.0-36.0); Mean Corpuscular Hemoglobin 31.8 pg (28.0-34.0); Mean Platelet Volume 9.7 fL (7.4-10.4); Monocytes # 0.8 10^3/uL (0.2-0.9); Monocytes % 2.2 %; Neutrophils # 31.79 10^3/uL (1.8-7.7); Neutrophils % 88.3 %; Nucleated Red Blood Cells % 0 %; Platelet Count 185 10^3/cmm (130-400); Red Blood Count 3.37 10^6/uL (4.1-5.3); Red Cell Distribution Width 13.4 % (12.1-15.1)
[2023-03-16 12:40] LABS: Alanine Aminotransferase 83 U/L (0-33); Alkaline Phosphatase 146 U/L (35-105); Anion Gap 14.1 (5-19); Aspartate Amino Transferase 34 U/L (0-32); Blood Urea Nitrogen 19 mg/dL (6-20); Calcium 9.3 mg/dL (8.5-10.5); Carbon Dioxide 26 mmol/L (22-29); Chloride 105 mmol/L (98-107); Creatinine Clr Calc Pharmacy 151.9894; Globulin 2.4 g/dL (1.3-4.6); Glomerular Filtration Rate 132.2 mL/min (90-130); Glucose 80 mg/dL (65-115); Osmolality Calculated 293 mOsm/kg (285-295); Potassium 4.1 mmol/L (3.5-5.1); Sodium 141 mmol/L (136-145); Total Bilirubin 0.5 mg/dL (0.15-1.2); Total Protein 6.4 g/dL (6.6-8.7)
[2023-03-21 07:22] VITALS: BP 149/82; PULSE 98; RESP 18; TEMP 36.1; O2SAT 99; BMI 31.4
[2023-03-21 07:37] LABS: Basophils # 0.1 10^3/uL (0.0-0.1); Basophils % 1.8 %; Eosinophils # 0.1 10^3/uL (0.0-0.8); Eosinophils % 2.6 %; Hematocrit 33.2 % (37.0-47.0); Hemoglobin 11.4 g/dL (11.5-15.3); Lymphocytes # 0.7 10^3/uL (0.8-4.8); Lymphocytes % 19.9 %; Mean Corpuscular HGB Conc 34.3 g/dL (30.0-36.0); Mean Corpuscular Hemoglobin 32.5 pg (28.0-34.0); Mean Corpuscular Volume 94.6 fl (81-99); Mean Platelet Volume 9.8 fL (7.4-10.4); Monocytes # 0.3 10^3/uL (0.2-0.9); Monocytes % 7.3 %; Neutrophils # 2.19 10^3/uL (1.8-7.7); Nucleated Red Blood Cells % 0 %; Platelet Count 178 10^3/cmm (130-400); Red Blood Count 3.51 10^6/uL (4.1-5.3); Red Cell Distribution Width 12.4 % (12.1-15.1); White Blood Count 3.4 10^3/uL (4.0-10.0)
[2023-03-21 07:50] LABS: Alanine Aminotransferase 87 U/L (0-33); Albumin Level 4.5 g/dL (3.5-5.2); Alkaline Phosphatase 148 U/L (35-105); Anion Gap 13.9 (5-19); Aspartate Amino Transferase 38 U/L (0-32); Blood Urea Nitrogen 18 mg/dL (6-20); Calcium 9.6 mg/dL (8.5-10.5); Carbon Dioxide 27 mmol/L (22-29); Chloride 103 mmol/L (98-107); Creatinine Clr Calc Pharmacy 150.3961; Globulin 2.5 g/dL (1.3-4.6); Glomerular Filtration Rate 132.2 mL/min (90-130); Glucose 121 mg/dL (65-115); Osmolality Calculated 293 mOsm/kg (285-295); Potassium 3.9 mmol/L (3.5-5.1); Sodium 140 mmol/L (136-145); Total Bilirubin 0.3 mg/dL (0.15-1.2)
[2023-03-21 08:14] LABS: Slide Review Slide Review Perform
== END 2023-03-30 23:59 | disposition home or self-care (01) ==
PROVIDERS: Internal Medicine Medical Oncology; PCP Electrodiagnostic Medicine; Visit Provider Internal Medicine Medical Oncology
DX: C80.1 Malignant (primary) neoplasm, unspecified (principal)
CPT/HCPCS: 36591; 80053; 85025; J1642

== ENCOUNTER 2023-04-04 08:19 | Oncology outpatient (recurring) (ONCR) | payer OTHER, SELFPAY ==
[2023-04-04 08:21] VITALS: BMI 31.4
[2023-04-04 08:25] VITALS: BP 131/85; PULSE 88; RESP 18; TEMP 36.2; O2SAT 99
[2023-04-04 08:38] LABS: Hematocrit 35.5 % (36-47); Mean Corpuscular HGB Conc 34.6 g/dL (30-55); Mean Corpuscular Hemoglobin 33.1 pg (27-33); Mean Corpuscular Volume 95.4 fl (85-98); Mean Platelet Volume 9.7 fL (7.4-10.4); Platelet Count 226 10^3/cmm (157-399); Red Blood Count 3.72 10^6/uL (3.85-5.65); Red Cell Distribution Width 12.8 % (12.1-15.1); White Blood Count 4.48 10^3/uL (3.29-11.43)
[2023-04-04 09:04] LABS: Alanine Aminotransferase 39 U/L (0-33); Albumin Level 4.3 g/dL (3.5-5.2); Alkaline Phosphatase 127 U/L (35-105); Anion Gap 12.4 (5-19); Aspartate Amino Transferase 29 U/L (0-32); Blood Urea Nitrogen 14 mg/dL (6-20); CA 15-3 34.2 U/mL (0-25); Calcium 9.2 mg/dL (8.5-10.5); Carbon Dioxide 27 mmol/L (22-29); Chloride 104 mmol/L (98-107); Creatinine Clr Calc Pharmacy 123.9825; Globulin 2.7 g/dL (1.3-4.6); Glomerular Filtration Rate 106.7 mL/min (90-130); Glucose 100 mg/dL (65-115); Osmolality Calculated 289 mOsm/kg (285-295); Potassium 4.4 mmol/L (3.5-5.1); Sodium 139 mmol/L (136-145); Thyroid Stimulating Hormone 2.28 uIU/mL (0.27-4.20); Total Bilirubin 0.4 mg/dL (0.15-1.2)
[2023-04-04 09:41] LABS: Absolute Eosinophils 0.1 10^3/cmm (0.0-0.7); Absolute Neutrophil 2.9 10^3/cmm (1.4-6.5); Absolute Segmented Neutrophil 2.6 10/cmm (1.6-7.1); Band Neutrophils Absolute 0.3 10^3/cmm (0.0-1.2); Eosinophils 2 %; Lymphocytes 21 %; Lymphocytes Absolute 1.3 10^3/cmm (1.2-3.4); Monocytes Absolute 0.2 10^3/cmm (0.1-0.6); Platelet Estimate Normal (Normal); Segmented Neutrophils 59 %; Slide Review Slide Review Perform; Total Cells Counted 100 (0-100)
[2023-04-04] MEDS: sodium chloride 0.9% 250 ML 50 ML IV (10:25)
[2023-04-04] MEDS: OLANZapine 5 mg TABLET PO (10:30)
[2023-04-04] MEDS: diphenhydrAMINE 50 mg/mL SDV 1mL 25 MG IVP (10:30)
[2023-04-04] MEDS: famotidine 20 mg/2 mL INJ IVP (10:35)
[2023-04-04] MEDS: palonosetron 0.25 mg/5 mL SDV IVP (10:39)
[2023-04-04] MEDS: fosaprepitant 150 MG in sodium chloride 0.9% 150 ML 300 MG IV (10:44)
[2023-04-04] MEDS: DOXOrubicin 2 mg/ml MDV 86 MG IVP (11:56)
[2023-04-04] MEDS: pembrolizumab 200 MG in sodium chloride 0.9% 250 ML 516 MG IV (12:28)
[2023-04-04] MEDS: sodium chloride 0.9% 250 ML 100 ML IV (13:12)
[2023-04-04] MEDS: pegfilgrastim 6 mg/0.6 mL Kit (onpro) SUBCUT (15:00)
[2023-04-04 15:10] VITALS: BP 113/77; PULSE 88; RESP 16; TEMP 35.9; O2SAT 97
== END 2023-04-04 23:59 | disposition home or self-care (01) ==
PROVIDERS: PCP Electrodiagnostic Medicine; Visit Provider Internal Medicine Medical Oncology
DX: C80.1 Malignant (primary) neoplasm, unspecified (principal); Z51.12 Encounter for antineoplastic immunotherapy
CPT/HCPCS: 80053; 84443; 85007; 85025; 86300; 96375; 96376; 96377; 96413; 96417; J1100; J1200; J1453; J1642; J2469; J2506; J3490; J7040; J7050; J9000; J9070; J9271

== ENCOUNTER 2023-07-08 02:18 | Inpatient (IN) | payer OTHER, SELFPAY ==
[2023-07-08] VITALS (9 sets, daily range): BP systolic 122–139; BP diastolic 70–86; PULSE 101–142; RESP 16–19; TEMP 36.7–38.3; O2SAT 95–100; BMI 33.1
--- NOTE | 2023-07-08 03:06 | XRR_ITS ---
PROCEDURE INFORMATION: Exam: XR Chest Exam date and time: 07/08/2023 3:09 AM Age: 48 years old Clinical indication: Prior surgery; Surgery date: 6+ months; Surgery type: Mastectomy. Port; Patient HX: New onset of fever. Had chemo treatment yesterday. History of breast cancer. TECHNIQUE: Imaging protocol: Radiologic exam of the chest. Views: 1 view. COMPARISON: CR XR chest 2V* [id number] 09/06/2020 7:12 PM FINDINGS: Tubes, catheters and devices: Right IJ approach MediPort is in satisfactory position, with distal tip at the level of the SVC/RA junction. Lungs: Unremarkable. No consolidation. Pleural spaces: Unremarkable. No pleural effusion. No pneumothorax. Heart/Mediastinum: Unremarkable. No cardiomegaly. Bones/joints: Unremarkable. XR/XR chest 1V portable [id number] IMPRESSION: No evidence of active cardiopulmonary disease.
[2023-07-08] MEDS: acetaminophen 500 mg Tablet 1000 MG PO (03:29)
--- NOTE | 2023-07-08 03:30 | ED_ITS ---
Documented by User: Maurilio Wing DO 07/08/23 03:33 HPI - Fever 2 General: Chief Complaint: Fever Stated Complaint: fever, headache ache, body ache, cancer pt Time Seen by Provider: 07/08/23 03:06 History of Present Illness: Patient presents to the ER with complaints of fever. Patient states her temperature got up to 102 degrees orally. Patient is a cancer patient. Patient is on Keytruda and got her first dose during this last week. Patient has a triple negative breast cancer patient who had a double mastectomy with implants recently. Patient denies any coughs cold flulike symptoms urinary frequency dysuria etc. Patient does state she has a headache. Review of Systems 2 General: Reports: 10 or more systems reviewed and unremarkable except in HPI and below PFSH ED 2 PFSH: Medical History (Updated 07/08/23 @ 08:36 by Tre Morales DO) Breast cancer Cancer with unknown primary site Surgical History History of left breast biopsy Family History Grandfather Cancer Prostate Father Diabetes Hypertension Mother Diabetes Hypertension Other CAD (coronary artery disease) Denies family history of Clotting disorder Dementia Hyperlipidemia Psychiatric illness Chronic kidney disease (CKD) Suicide Anesthesia complication Bleeding disorder Lung disease Stroke Social History Smoking and tobacco/nicotine status: never used tobacco/nicotine Alcohol intake: current Alcohol intake frequency: few times a month Physical Exam 2 Const: COMMON NORMALS: no acute distress, average body habitus, patient oriented x3, no limitations, healthy appearing, alert and well nourished HENMT: COMMON NORMALS: normocephalic, atraumatic, hearing grossly normal bilaterally, external ears normal, Normal external nose present, moist oral mucous membranes and oropharynx normal HEAD & SCALP: normocephalic and atraumatic NOSE: Normal external nose present EXTERNAL EAR: Yes external ears normal Eye: COMMON NORMALS: Equal, round and reactive pupils present, EOMs intact bilaterally, conjunctivae normal and no scleral icterus CONJUNCTIVA: Yes conjunctivae normal PUPIL: Yes Equal, round and reactive pupils present Neck/C-Spine: COMMON NORMALS: full ROM, no lymphadenopathy, supple, no meningeal signs, no JVD and Thyroid normal THYROID: Thyroid normal Resp: COMMON NORMALS: normal respiratory effort, No retractions, No use of accessory muscles and clear to auscultation bilaterally AUSCULTATION: clear to auscultation bilaterally Cardio: COMMON NORMALS: no JVD, regular rhythm, S1 normal heart sound present, S2 normal heart sound present, No gallops present (Cardio), No clicks present (Cardio), No murmurs present (Cardio) and No rub (Cardio); negative for regular rate (Tachycardic) RATE: abnormal rate (Tachycardic) RHYTHM: regular rhythm HEART SOUNDS: S1 normal heart sound present and S2 normal heart sound present GI: COMMON NORMALS: Normal to inspection, nondistended, normoactive bowel sounds present, Soft to palpation, non-tender, No hepatosplenomegaly present and no masses PALPATION: Yes Soft to palpation and Yes No hepatosplenomegaly present Neuro: COMMON NORMALS: patient oriented x3 SENSORIUM/ORIENTATION: Yes alert MENINGEAL SIGNS: Yes no meningeal signs Course 2 Vital Signs: Vital signs: Vital Signs Temperature 99.1 F 07/08/23 07:00 Pulse Rate 114 H 07/08/23 07:00 Respiratory Rate 18 07/08/23 07:00 Blood Pressure 132/86 07/08/23 07:00 Pulse Oximetry 98 07/08/23 07:00 Oxygen Delivery Me thod Room Air 07/08/23 07:00 MDM - Fever Differential Diagnosis Unlikely abdominal pain, acute appendicitis, calculus of kidney, constipation, diverticulitis, endometriosis, gastroenteritis, pancreatitis or small bowel obstruction Medical Records I reviewed the patient's medical records. Lab Data I reviewed the patient's lab results. 07/08/23 03:12 07/08/23 03:12 Radiology Impressions Chest X-Ray 07/08/23 03:06 IMPRESSION: No evidence of active cardiopulmonary disease. Chest CT 07/08/23 04:53 IMPRESSION: No acute intrathoracic pathology. Abdomen/Pelvis CT 07/08/23 06:39 IMPRESSION: No acute findings. Laboratory Results WBC 11.99 10^3/uL (3.29-11.43) H 07/08/23 03:12 RBC 3.75 10^6/uL (3.85-5.65) L 07/08/23 03:12 Hgb 11.80 g/dL (11.27-16.99) 07/08/23 03:12 Hct 35.2 % (36-47) L 07/08/23 03:12 MCV 93.9 fl (85-98) 07/08/23 03:12 MCH 31.5 pg (27-33) 07/08/23 03:12 MCHC 33.5 g/dL (30-55) 07/08/23 03:12 RDW 11.4 % (12.1-15.1) L 07/08/23 03:12 Plt Count 225 10^3/cmm (157-399) 07/08/23 03:12 MPV 9.5 fL (7.4-10.4) 07/08/23 03:12 Neut % (Auto) 74.0 % 07/08/23 03:12 Lymph % (Auto) 9.2 % 07/08/23 03:12 [place] % (Auto) 6.6 % 07/08/23 03:12 Eos % (Auto) 9.3 % 07/08/23 03:12 Baso % (Auto) 0.6 % 07/08/23 03:12 Neut # (Auto) 8.89 10^3/uL (1.8-7.7) H 07/08/23 03:12 Lymph # (Auto) 1.1 10^3/uL (0.8-4.8) 07/08/23 03:12 [place] # (Auto) 0.8 10^3/uL (0.2-0.9) 07/08/23 03:12 Eos # (Auto) 1.1 10^3/uL (0.0-0.8) H 07/08/23 03:12 Baso # (Auto) 0.1 10^3/uL (0.0-0.1) 07/08/23 03:12 Nucleated RBC % (auto) 0 % 07/08/23 03:12 Nucleated RBCs # 0.0 /100WBC 07/08/23 03:12 Sodium 134 mmol/L (136-145) L 07/08/23 03:12 Potassium 4.5 mmol/L (3.5-5.1) 07/08/23 03:12 Chloride 99 mmol/L (98-107) 07/08/23 03:12 Carbon Dioxide 24 mmol/L (22-29) 07/08/23 03:12 Anion Gap 15.5 (5-19) 07/08/23 03:12 BUN 22 mg/dL (6-20) H 07/08/23 03:12 Creatinine 0.6 mg/dL (0.5-0.9) 07/08/23 03:12 GFR Calculation 106.7 mL/min (90-130) 07/08/23 03:12 Glucose 125 mg/dL (65-115) H 07/08/23 03:12 Calculated Osmolality 283 mOsm/kg (285-295) L 07/08/23 03:12 Lactic Acid 1.2 mmol/L (0.5-2.2) 07/08/23 03:12 Calcium 9.5 mg/dL (8.5-10.5) 07/08/23 03:12 Total Bilirubin 0.4 mg/dL (0.15-1.2) 07/08/23 03:12 AST 45 U/L (0-32) H 07/08/23 03:12 ALT 82 U/L (0-33) H 07/08/23 03:12 Alkaline Phosphatase 182 U/L (35-105) H 07/08/23 03:12 Total Protein 7.2 g/dL (6.6-8.7) 07/08/23 03:12 Albumin 4.3 g/dL (3.5-5.2) 07/08/23 03:12 Globulin 2.9 g/dL (1.3-4.6) 07/08/23 03:12 Procalcitonin 0.12 ng/mL (0-0.5) 07/08/23 03:12 Urine Color Light yellow (Yellow) 07/08/23 05:32 Urine Appearance Hazy (CLEAR) A 07/08/23 05:32 Urine pH 6 (5-7) 07/08/23 05:32 Ur Specific Emmett 1.005 (1.005-1.030) 07/08/23 05:32 Urine Protein Neg (Negative) 07/08/23 05:32 Urine Glucose (UA) Norm (Normal) 07/08/23 05:32 Urine Ketones Negative (Negative) 07/08/23 05:32 Urine Blood 2+ (Negative) H 07/08/23 05:32 Urine Nitrate Negative (Negative) 07/08/23 05:32 Urine Bilirubin Neg (Negative) 07/08/23 05:32 Urine Urobilinogen Neg mg/dL (Negative) 07/08/23 05:32 Ur Leukocyte Esterase 2+ (Negative) H 07/08/23 05:32 Urine RBC 5-10 /hpf (0-2) H 07/08/23 05:32 Urine WBC >100 /hpf (0-5) H 07/08/23 05:32 Ur Squamous Epith Cells 5-10 /hpf (0-5) H 07/08/23 05:32 Amorphous Sediment Not Reportable 07/08/23 05:32 Urine Bacteria 1+ /hpf (NONE) H 07/08/23 05:32 Discharge Plan Discharge Patient Disposition: Admitted As Inpatient Clinical Impression: Sepsis, Pyelonephritis, Triple negative breast carcinoma Condition: Stable Prescriptions: No Action losartan 50 mg tablet 50 mg PO QAM lorazepam 1 mg tablet 0.5 - 1 mg PO Q6H PRN (Reason: Severe Nausea) Qty: 30 3RF promethazine 25 mg tablet 25 mg PO Q6H PRN (Reason: nausea and vomiting) Qty: 30 3RF sumatriptan succinate 100 mg tablet 50 mg PO DAILY PRN (Reason: Migraine Headache) lidocaine-prilocaine 2.5-2.5 % cream See Rx Instructions .ROUTE .COMPLEX Rx Instructions: apply 30 minutes prior to port access omeprazole 20 mg capsule,delayed release(DR/EC) 20 mg PO QPM Referrals: Serg Altman DO [Primary Care Provider] - Sign Out Sign Out Data: Patient Sign Out occurred on 07/08/23 at 06:10. Patient's care was discussed, and care was transferred from Maurilio Wing DO to Tre Morales DO. 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 [employer]g [employer]wd Documented by User: Tre Morales DO 07/08/23 08:36 HPI - Fever 2 General: Chief Complaint: Fever Stated Complaint: fever, headache ache, body ache, cancer pt Time Seen by Provider: 07/08/23 03:06 PFSH ED 2 PFSH: Medical History (Updated 07/08/23 @ 08:36 by Tre Morales DO) Breast cancer Cancer with unknown primary site Surgical History History of left breast biopsy Family History Grandfather Cancer Prostate Father Diabetes Hypertension Mother Diabetes Hypertension Other CAD (coronary artery disease) Denies family history of Clotting disorder Dementia Hyperlipidemia Psychiatric illness Chronic kidney disease (CKD) Suicide Anesthesia complication Bleeding disorder Lung disease Stroke Social History Smoking and tobacco/nicotine status: never used tobacco/nicotine Alcohol intake: current Alcohol intake frequency: few times a month Course 2 Vital Signs: Vital signs: Vital Signs Temperature 99.1 F 07/08/23 07:00 Pulse Rate 114 H 07/08/23 07:00 Respiratory Rate 18 07/08/23 07:00 Blood Pressure 132/86 07/08/23 07:00 Pulse Oximetry 98 07/08/23 07:00 Oxygen Delivery Me thod Room Air 07/08/23 07:00 MDM - Fever Medical Decision Making Care assumed at change of shift labs reviewed patient has a pyelonephritis. Given her history of cancer and ongoing chemo treatment she will require admission for IV antibiotics. CT of the kidneys ureters bladder did not show any significant abscess or obstruction patient does not require urologic consultation at this time. Lab Data 07/08/23 03:12 07/08/23 03:12 Radiology Impressions Chest X-Ray 07/08/23 03:06 IMPRESSION: No evidence of active cardiopulmonary disease. Chest CT 07/08/23 04:53 IMPRESSION: No acute intrathoracic pathology. Abdomen/Pelvis CT 07/08/23 06:39 IMPRESSION: No acute findings. Laboratory Results WBC 11.99 10^3/uL (3.29-11.43) H 07/08/23 03:12 RBC 3.75 10^6/uL (3.85-5.65) L 07/08/23 03:12 Hgb 11.80 g/dL (11.27-16.99) 07/08/23 03:12 Hct 35.2 % (36-47) L 07/08/23 03:12 MCV 93.9 fl (85-98) 07/08/23 03:12 MCH 31.5 pg (27-33) 07/08/23 03:12 MCHC 33.5 g/dL (30-55) 07/08/23 03:12 RDW 11.4 % (12.1-15.1) L 07/08/23 03:12 Plt Count 225 10^3/cmm (157-399) 07/08/23 03:12 MPV 9.5 fL (7.4-10.4) 07/08/23 03:12 Neut % (Auto) 74.0 % 07/08/23 03:12 Lymph % (Auto) 9.2 % 07/08/23 03:12 [place] % (Auto) 6.6 % 07/08/23 03:12 Eos % (Auto) 9.3 % 07/08/23 03:12 Baso % (Auto) 0.6 % 07/08/23 03:12 Neut # (Auto) 8.89 10^3/uL (1.8-7.7) H 07/08/23 03:12 Lymph # (Auto) 1.1 10^3/uL (0.8-4.8) 07/08/23 03:12 [place] # (Auto) 0.8 10^3/uL (0.2-0.9) 07/08/23 03:12 Eos # (Auto) 1.1 10^3/uL (0.0-0.8) H 07/08/23 03:12 Baso # (Auto) 0.1 10^3/uL (0.0-0.1) 07/08/23 03:12 Nucleated RBC % (auto) 0 % 07/08/23 03:12 Nucleated RBCs # 0.0 /100WBC 07/08/23 03:12 Sodium 134 mmol/L (136-145) L 07/08/23 03:12 Potassium 4.5 mmol/L (3.5-5.1) 07/08/23 03:12 Chloride 99 mmol/L (98-107) 07/08/23 03:12 Carbon Dioxide 24 mmol/L (22-29) 07/08/23 03:12 Anion Gap 15.5 (5-19) 07/08/23 03:12 BUN 22 mg/dL (6-20) H 07/08/23 03:12 Creatinine 0.6 mg/dL (0.5-0.9) 07/08/23 03:12 GFR Calculation 106.7 mL/min (90-130) 07/08/23 03:12 Glucose 125 mg/dL (65-115) H 07/08/23 03:12 Calculated Osmolality 283 mOsm/kg (285-295) L 07/08/23 03:12 Lactic Acid 1.2 mmol/L (0.5-2.2) 07/08/23 03:12 Calcium 9.5 mg/dL (8.5-10.5) 07/08/23 03:12 Total Bilirubin 0.4 mg/dL (0.15-1.2) 07/08/23 03:12 AST 45 U/L (0-32) H 07/08/23 03:12 ALT 82 U/L (0-33) H 07/08/23 03:12 Alkaline Phosphatase 182 U/L (35-105) H 07/08/23 03:12 Total Protein 7.2 g/dL (6.6-8.7) 07/08/23 03:12 Albumin 4.3 g/dL (3.5-5.2) 07/08/23 03:12 Globulin 2.9 g/dL (1.3-4.6) 07/08/23 03:12 Procalcitonin 0.12 ng/mL (0-0.5) 07/08/23 03:12 Urine Color Light yellow (Yellow) 07/08/23 05:32 Urine Appearance Hazy (CLEAR) A 07/08/23 05:32 Urine pH 6 (5-7) 07/08/23 05:32 Ur Specific Emmett 1.005 (1.005-1.030) 07/08/23 05:32 Urine Protein Neg (Negative) 07/08/23 05:32 Urine Glucose (UA) Norm (Normal) 07/08/23 05:32 Urine Ketones Negative (Negative) 07/08/23 05:32 Urine Blood 2+ (Negative) H 07/08/23 05:32 Urine Nitrate Negative (Negative) 07/08/23 05:32 Urine Bilirubin Neg (Negative) 07/08/23 05:32 Urine Urobilinogen Neg mg/dL (Negative) 07/08/23 05:32 Ur Leukocyte Esterase 2+ (Negative) H 07/08/23 05:32 Urine RBC 5-10 /hpf (0-2) H 07/08/23 05:32 Urine WBC >100 /hpf (0-5) H 07/08/23 05:32 Ur Squamous Epith Cells 5-10 /hpf (0-5) H 07/08/23 05:32 Amorphous Sediment Not Reportable 07/08/23 05:32 Urine Bacteria 1+ /hpf (NONE) H 07/08/23 05:32 All radiology interpretation(s) finalized by discharge Discharge Plan Discharge Patient Disposition: Admitted As Inpatient Clinical Impression: Sepsis, Pyelonephritis, Triple negative breast carcinoma Condition: Stable Prescriptions: No Action losartan 50 mg tablet 50 mg PO QAM lorazepam 1 mg tablet 0.5 - 1 mg PO Q6H PRN (Reason: Severe Nausea) Qty: 30 3RF promethazine 25 mg tablet 25 mg PO Q6H PRN (Reason: nausea and vomiting) Qty: 30 3RF sumatriptan succinate 100 mg tablet 50 mg PO DAILY PRN (Reason: Migraine Headache) lidocaine-prilocaine 2.5-2.5 % cream See Rx Instructions .ROUTE .COMPLEX Rx Instructions: apply 30 minutes prior to port access omeprazole 20 mg capsule,delayed release(DR/EC) 20 mg PO QPM Referrals: Serg Altman DO [Primary Care Provider] - Sign Out Sign Out Data: Patient Sign Out occurred on 07/08/23 at 06:10. Patient's care was discussed, and care was transferred from Maurilio Wing DO to Tre Morales DO. 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 [place]
[2023-07-08 03:31] LABS: Basophils # 0.1 10^3/uL (0.0-0.1); Basophils % 0.6 %; Eosinophils # 1.1 10^3/uL (0.0-0.8); Eosinophils % 9.3 %; Hematocrit 35.2 % (36-47); Lymphocytes # 1.1 10^3/uL (0.8-4.8); Lymphocytes % 9.2 %; Mean Corpuscular HGB Conc 33.5 g/dL (30-55); Mean Corpuscular Hemoglobin 31.5 pg (27-33); Mean Corpuscular Volume 93.9 fl (85-98); Mean Platelet Volume 9.5 fL (7.4-10.4); Monocytes # 0.8 10^3/uL (0.2-0.9); Monocytes % 6.6 %; Neutrophils # 8.89 10^3/uL (1.8-7.7); Nucleated Red Blood Cells % 0 %; Platelet Count 225 10^3/cmm (157-399); Red Blood Count 3.75 10^6/uL (3.85-5.65); Red Cell Distribution Width 11.4 % (12.1-15.1); White Blood Count 11.99 10^3/uL (3.29-11.43)
[2023-07-08 03:47] LABS: Alanine Aminotransferase 82 U/L (0-33); Albumin Level 4.3 g/dL (3.5-5.2); Alkaline Phosphatase 182 U/L (35-105); Anion Gap 15.5 (5-19); Aspartate Amino Transferase 45 U/L (0-32); Blood Urea Nitrogen 22 mg/dL (6-20); Calcium 9.5 mg/dL (8.5-10.5); Carbon Dioxide 24 mmol/L (22-29); Chloride 99 mmol/L (98-107); Globulin 2.9 g/dL (1.3-4.6); Glomerular Filtration Rate 106.7 mL/min (90-130); Glucose 125 mg/dL (65-115); Lactic Sepsis W/Reflex 1.2 mmol/L (0.5-2.2); Osmolality Calculated 283 mOsm/kg (285-295); Potassium 4.5 mmol/L (3.5-5.1); Sodium 134 mmol/L (136-145); Total Bilirubin 0.4 mg/dL (0.15-1.2); Total Protein 7.2 g/dL (6.6-8.7)
[2023-07-08 03:54] LABS: Procalcitonin 0.12 ng/mL (0-0.5)
[2023-07-08] MEDS: sodium chloride 0.9% 1,000 ML 999 ML IV (03:57)
--- NOTE | 2023-07-08 04:53 | CTR_ITS ---
PROCEDURE INFORMATION: Exam: CT Chest With Contrast; Diagnostic Exam date and time: 07/08/2023 5:01 AM Age: 48 years old Clinical indication: Abnormal findings; Abnormal diagnostic tests; Abnormal ekg; Prior surgery; Surgery date: <1 month; Surgery type: Double mastectomy 06/21/2024. Breast augmentation. Port; Patient HX: Fever with elevated wbc and neutrophils. Tachycardic. History of breast cancer. ; Additional info: Fever tachycardia, recent chest surgery due to breast canc TECHNIQUE: Imaging protocol: Diagnostic computed tomography of the chest with contrast. Radiation optimization: All CT scans at this facility use at least one of these dose optimization techniques: automated exposure control; mA and/or kV adjustment per patient size (includes targeted exams where dose is matched to clinical indication); or iterative reconstruction. Contrast material: OMNI 350; Contrast volume: 100 ml; Contrast route: INTRAVENOUS (IV); REPORTING DATA: Count of CT and Cardiac NM exams in prior 12 months: This patient has received 0 known CTs and 0 known cardiac nuclear medicine studies in the 12 months prior to the current study. COMPARISON: CR (CHEST, ) 07/08/2023 3:09 AM RADIATION DOSE METRICS: Total DLP (mGy-cm): 1453.28 FINDINGS: Tubes, catheters and devices: Chemotherapy infusion port is present in the right chest terminating in the SVC. Lungs: Linear atelectasis in the bilateral lower lobes. Pleural spaces: No consolidation, pneumonia, or pneumothorax. New Heart: Unremarkable. No cardiomegaly. No pericardial effusion. Lymph nodes: Unremarkable. No enlarged lymph nodes. Vasculature: Unremarkable. No aortic aneurysm. Bones/joints: Unremarkable. No acute fracture. Soft tissues: Bilateral mastectomies. There is a small amount of gas adjacent to the right implant but no evidence of active inflammation, minimal symmetrical fluid is seen adjacent to each implant. CT/CT chest w con* [id number] IMPRESSION: No acute intrathoracic pathology.
[2023-07-08] MEDS: iohexol 350 mg/mL 500 mL Btl (per mL) IV (05:05)
--- NOTE | 2023-07-08 05:59 | ECG_ITS ---
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 Measurements Intervals [place] Rate: 111 P: 65 DE: 160 QRS: 61 QRSD: 101 T: 42 QT: 347 QTc: 473 Interpretive Statements SINUS TACHYCARDIA NONSPECIFIC T-WAVE ABNORMALITY ABNORMAL RHYTHM ECG No previous ECG available for comparison Electronically Signed On 07-08-2023 8:58:33 ADVERTISEMENT COMPOSITOR by Franco Hernandez M.D. [id number]
[2023-07-08 06:00] LABS: Add Urine Culture? Yes; Add Urine Microscopic? YES; Bacteria Urine 1+ /hpf; Bilirubin Urine Neg (Negative); Blood Urine 2+ (Negative); Glucose Urine UA Norm (Normal); Ketones Urine Negative (Negative); Leukocyte Esterase Urine 2+ (Negative); Nitrate Urine Negative (Negative); Protein Urine Neg (Negative); Specific Gravity, Urine 1.005 (1.005-1.030); Urine Appearance Hazy (CLEAR); Urine Color Light yellow (Yellow); Urobilinogen Urine Neg (Negative); WBC Urine >100 /hpf (0-5); pH Urine 6 (5-7)
--- NOTE | 2023-07-08 06:39 | CTR_ITS ---
PROCEDURE INFORMATION: Exam: CT Abdomen And Pelvis Without Contrast Exam date and time: 07/08/2023 7:19 AM Age: 48 years old Clinical indication: Condition or disease; Kidney or ureter condition; Other: Pyelonephritis; Prior surgery; Surgery date: 6+ months; Surgery type: Hyster TECHNIQUE: Imaging protocol: Computed tomography of the abdomen and pelvis without contrast. Radiation optimization: All CT scans at this facility use at least one of these dose optimization techniques: automated exposure control; mA and/or kV adjustment per patient size (includes targeted exams where dose is matched to clinical indication); or iterative reconstruction. REPORTING DATA: Count of CT and Cardiac NM exams in prior 12 months: This patient has received 0 known CTs and 0 known cardiac nuclear medicine studies in the 12 months prior to the current study. COMPARISON: CT chest w con* [id number] 07/08/2023 5:01 AM RADIATION DOSE METRICS: Total DLP (mGy-cm): 921.81 FINDINGS: Liver: Normal. No mass. Gallbladder and bile ducts: Normal. No calcified stones. No ductal dilation. Pancreas: Normal. No ductal dilation. Spleen: Normal. No splenomegaly. Adrenal glands: Normal. No mass. Kidneys and ureters: Normal. No hydronephrosis. Stomach and bowel: Unremarkable. No obstruction. No mucosal thickening. Appendix: No evidence of appendicitis. Intraperitoneal space: Unremarkable. No free air. No significant fluid collection. Vasculature: Unremarkable. No abdominal aortic aneurysm. Lymph nodes: Unremarkable. No enlarged lymph nodes. Urinary bladder: Unremarkable as visualized. Reproductive: Hysterectomy. Bones/joints: Unremarkable. No acute fracture. Soft tissues: Unremarkable. CT/CT kidney stone [id number] IMPRESSION: No acute findings.
--- NOTE | 2023-07-08 07:18 | P.HP_ITS ---
Providers/Chief Complaint 2 Primary Care Provider: Serg Altman DO Chief Complaint: fever, headache ache, body ache, cancer pt History of Present Illness Erica Marlow is a 48 year old female who had an occipital lymph node biopsy by Dr. Ferrell it was triple negative breast cancer she underwent neoadjuvant chemotherapy and mastectomy, she is on Keytruda, coming in with chief complaint of fever and dysuria. Patient is stating that last night around 11 PM she started experiencing rigors, chills, fever she was to nursing lethargy and fatigue as well she did not use any chest pain or shortness of breath was stating that her chest is sore from recent mastectomy 2-1/2 weeks ago, she has not noticed dysuria, blood in urine she has no history of kidney stones, she called [facility] who recommended her to go to the nearest ER, patient is stating that she was experiencing pain in her right lower back In the ER patient had fever, leukocytosis, I requested septic bolus, lactic acid, CT kidney stone is pending, will switch her antibiotics to Zosyn CT kidney stone did not show any signs of pyonephritis source kidney stones Review of Systems 2 Const: Reports: fever(s) and chills Eyes: Denies: change in vision ENMT: Denies: throat pain Card: Denies: chest pain Resp: Denies: dyspnea GI: Denies: abdominal pain : Reports: flank pain Medications/Allergies Home Medications Medication Instructions Recorded Confirmed Last Taken Type losartan 50 mg tablet 50 mg PO DAILY 09/22/22 04/04/23 Unknown History sumatriptan succinate 25 mg tablet See Rx Instructions PO Q2H PRN 10/31/22 04/04/23 Unknown History lidocaine-prilocaine 2.5 %-2.5 % 1 applic topical ONCE #30 grams 11/18/22 04/04/23 Unknown Rx topical cream omeprazole 20 mg capsule,delayed 20 mg PO DAILY #30 caps 04/04/23 Unknown Rx release lorazepam 1 mg tablet 0.5 - 1 mg (0.5 - 1 x 1 mg) PO Q6H 04/06/23 Unknown Rx PRN Severe Nausea #30 tabs promethazine 25 mg tablet 25 mg PO Q6H PRN nausea and 05/01/23 Unknown Rx vomiting #30 tabs Allergies Allergy/AdvReac Type Severity Reaction Status Date / Time adhesive Allergy ALGY-Bliste Verified 04/04/23 09:27 r prochlorperazine Allergy Unknown Verified 04/04/23 09:27 [From Compazine] Sulfa (Sulfonamide Allergy Unknown Verified 04/04/23 09:27 Antibiotics) PFSH Acute 2 PFSH: Medical History (Updated 07/08/23 @ 07:47 by Parisa Lopez MD) Breast cancer Cancer with unknown primary site Surgical History History of left breast biopsy Family History Grandfather Cancer Prostate Father Diabetes Hypertension Mother Diabetes Hypertension Other CAD (coronary artery disease) Denies family history of Clotting disorder Dementia Hyperlipidemia Psychiatric illness Chronic kidney disease (CKD) Suicide Anesthesia complication Bleeding disorder Lung disease Stroke Social History Smoking and tobacco/nicotine status: never used tobacco/nicotine Alcohol intake: current Alcohol intake frequency: few times a month Vitals/I&O/Wt Last Vital Signs Temp 99.1 F 07/08/23 07:00 Pulse 114 H 07/08/23 07:00 Resp 18 07/08/23 07:00 BP 132/86 07/08/23 07:00 Pulse Ox 98 07/08/23 07:00 O2 Del Method Room Air 07/08/23 07:00 07/07/23 07/08/23 07/08/23 22:59 06:59 14:59 Intake Total 1000 / 1000 Balance 1000 / 1000 Weight last 48 hrs Weight 90.265 kg Physical Exam 2 Narrative: Patient is awake and alert Euvolemic GCS 15 Recent mastectomy Currently awake and alert No fever at the time of my evaluation GCS 15 Pleasant and cooperative S1, S2 Doing well on room air Tachycardia No CVA tenderness elicited however she has received opioids Data 07/08/23 03:12 07/08/23 03:12 Micro: Microbiology 07/08/23 03:31 Blood Culture - Preliminary Blood SPECIMEN COLLECTED 07/08/23 03:27 Blood Culture - Preliminary Blood SPECIMEN COLLECTED A&P Assessment and plan (1) Sepsis: (2) UTI (urinary tract infection): Plan Sepsis related to UTI No clinical sign of pyonephritis, CT abdomen pelvis did not show any stones [facility] Requested blood and urine culture It will take about 48 hours for the final culture result Considering immunocompromise state we may switch to meropenem if her fever does not subside Sepsis criteria met with fever tachypnea tachycardia leukocytosis I have requested lactic acid I will give her septic bolus she had received 1 L in the ER will give 2 L extra Full code Regular diet Patient is not diabetic DVT prophylaxis on board For hypertension continue losartan Attestations 2 Medical Necessity Statement*: More than 2 midnights anticipated for sepsis and UTI Diagnoses Sepsis A41.9 UTI (urinary tract infection) N39.0
--- NOTE | 2023-07-08 07:48 | PC.PHAR ---
pt states she takes care of her own medications-pt states she is still taking losartan 50mg qam ext shows last filled 12/27/22 90d/s ext hasnt been updating and linking with pharmacies yane not open yet to verify last fill date
[2023-07-08] MEDS: lactated ringers 1,000 ML 999 ML IV (08:16)
[2023-07-08] MEDS: ciprofloxacin 400 MG/200 ML PREMIX 200 MG IV (08:17)
[2023-07-08] MEDS: diphenhydrAMINE 50 mg/mL SDV 1mL 25 MG IVP (09:16)
[2023-07-08] MEDS: dexamethasone 10 mg/mL INJ 6 MG IVP (09:17)
--- NOTE | 2023-07-08 09:31 | PC.NURSE ---
Report called to and given to Gabi.
[2023-07-08 10:53] LABS: Vitamin B12 1012 pg/mL (232-1245)
[2023-07-08] MEDS: enoxaparin 40 mg/0.4 mL Syringe SUBCUT (12:38)
[2023-07-08] MEDS: losartan 50 mg Tablet PO (12:55)
[2023-07-08] MEDS: piperacillin-tazobactam 3.375 GM in sodium chloride 0.9% (plus) 50 ML IV ×2 (12:55→20:14)
[2023-07-08] MEDS: sodium chloride 0.9% 1,000 ML 100 ML IV (12:56)
[2023-07-09] VITALS (8 sets, daily range): BP systolic 109–136; BP diastolic 66–87; PULSE 71–109; RESP 16–20; TEMP 36.4–36.7; O2SAT 96–98
[2023-07-09] MEDS: sodium chloride 0.9% 1,000 ML 100 ML IV ×3 (01:20→21:05)
[2023-07-09] MEDS: piperacillin-tazobactam 3.375 GM in sodium chloride 0.9% (plus) 50 ML IV ×3 (04:00→21:04)
[2023-07-09 05:25] LABS: Basophils # 0.1 10^3/uL (0.0-0.1); Basophils % 0.6 %; Eosinophils # 0.6 10^3/uL (0.0-0.8); Hematocrit 32.5 % (36-47); Lymphocytes # 1.6 10^3/uL (0.8-4.8); Lymphocytes % 17.6 %; Mean Corpuscular HGB Conc 33.2 g/dL (30-55); Mean Corpuscular Hemoglobin 31.1 pg (27-33); Mean Corpuscular Volume 93.7 fl (85-98); Mean Platelet Volume 9.6 fL (7.4-10.4); Monocytes # 0.8 10^3/uL (0.2-0.9); Monocytes % 9.1 %; Neutrophils # 6.13 10^3/uL (1.8-7.7); Neutrophils % 66.3 %; Nucleated Red Blood Cells % 0 %; Platelet Count 231 10^3/cmm (157-399); Red Blood Count 3.47 10^6/uL (3.85-5.65); Red Cell Distribution Width 11.4 % (12.1-15.1); White Blood Count 9.26 10^3/uL (3.29-11.43)
[2023-07-09 05:47] LABS: Anion Gap 16.3 (5-19); Blood Urea Nitrogen 10 mg/dL (6-20); C Reactive Protein 20.4 mg/L (0.0-4.9); Calcium 9.4 mg/dL (8.5-10.5); Carbon Dioxide 22 mmol/L (22-29); Chloride 103 mmol/L (98-107); Glomerular Filtration Rate 131.7 mL/min (90-130); Glucose 128 mg/dL (65-115); Magnesium 1.9 mg/dL (1.7-2.3); Osmolality Calculated 287 mOsm/kg (285-295); Potassium 3.3 mmol/L (3.5-5.1); Sodium 138 mmol/L (136-145)
[2023-07-09] MEDS: enoxaparin 40 mg/0.4 mL Syringe SUBCUT (11:35)
[2023-07-09] MEDS: losartan 50 mg Tablet PO (11:35)
--- NOTE | 2023-07-09 12:52 | P.PN_ITS ---
Subjective 2 Subjective: Seen today. Patient feels well. Afebrile overnight. Family member at bedside. Urine cultures pending at this time. Vitals/I&O/Wt Last Vital Signs Temp 98.0 F 07/09/23 11:49 Pulse 93 07/09/23 11:49 Resp 20 H 07/09/23 11:49 BP 136/87 07/09/23 11:49 Pulse Ox 97 07/09/23 11:49 O2 Del Method Room Air 07/09/23 11:49 07/08/23 07/09/23 07/09/23 22:59 06:59 14:59 Intake Total 2730 / 3210 530 / 3740 1410 / 1410 Balance 2730 / 3210 530 / 3740 1410 / 1410 Weight last 48 hrs Weight 90.265 kg Weight 90.265 kg Weight 90.265 kg Physical Exam 2 Narrative: General: Alert oriented x3, patient seen sitting up in bed appearing comfortable. HEENT: Normocephalic, atraumatic, Cardio: Regular rate rhythm, normal S1-S2 Respiratory: Clear to auscultation bilaterally GI: Abdomen soft, nontender, Extremities: wnl Data 07/09/23 04:05 07/09/23 04:05 Micro: Microbiology 07/08/23 03:27 Blood Culture - Preliminary Blood NEGATIVE TO DATE 07/08/23 03:31 Blood Culture - Preliminary Blood NEGATIVE TO DATE A&P Assessment and plan (1) Sepsis: (2) UTI (urinary tract infection): Plan Sepsis secondary to UTI Immunocompromise status History of triple negative breast cancer status postmastectomy, chemotherapy Hypertension Anemia ? CT abdomen pelvis did not show any stones, no pyelonephritis ? Urinalysis abnormal ? Urine culture pending at this time ? Blood cultures pending ? Continue on Zosyn secondary to immunocompromise status. May de-escalate as cultures become available ? Sepsis criteria met on admission with fever tachypnea tachycardia leukocytosis. Lactic acid was normal. ? Septic bolus given 1 L in the ER and 2 L given thereafter. ? Continue losartan for hypertension ? Continue omeprazole ? Hemoglobin 10.8 today. Most likely secondary to dilution as she has gotten IV fluids during hospital stay. Continue to monitor. Check CBC in a.m. DVT prophylaxis: Lovenox 40 daily ? Full code Attestations 2 Medical Necessity Statement*: Awaiting culture data. Requires inpatient stay for IV antibiotics. She is immunocompromise. Diagnoses Sepsis A41.9 UTI (urinary tract infection) N39.0
[2023-07-09] MEDS: potassium chloride ER 20 mEq Tablet 40 MEQ PO (14:44)
[2023-07-10 04:00] VITALS: BP 133/85; PULSE 81; RESP 16; TEMP 36.8; O2SAT 98
[2023-07-10 04:54] LABS: Basophils # 0.1 10^3/uL (0.0-0.1); Basophils % 1.1 %; Eosinophils # 1.7 10^3/uL (0.0-0.8); Eosinophils % 26.2 %; Hematocrit 30.5 % (36-47); Lymphocytes # 1.7 10^3/uL (0.8-4.8); Lymphocytes % 26.8 %; Mean Corpuscular HGB Conc 33.1 g/dL (30-55); Mean Corpuscular Hemoglobin 32.1 pg (27-33); Mean Corpuscular Volume 96.8 fl (85-98); Mean Platelet Volume 9.7 fL (7.4-10.4); Monocytes # 0.5 10^3/uL (0.2-0.9); Monocytes % 7.1 %; Neutrophils # 2.43 10^3/uL (1.8-7.7); Neutrophils % 38.6 %; Nucleated Red Blood Cells % 0 %; Platelet Count 206 10^3/cmm (157-399); Red Blood Count 3.15 10^6/uL (3.85-5.65); Red Cell Distribution Width 11.5 % (12.1-15.1)
[2023-07-10] MEDS: piperacillin-tazobactam 3.375 GM in sodium chloride 0.9% (plus) 50 ML IV ×2 (05:07→13:48)
[2023-07-10 05:16] LABS: Alanine Aminotransferase 69 U/L (0-33); Albumin Level 3.5 g/dL (3.5-5.2); Alkaline Phosphatase 124 U/L (35-105); Anion Gap 13.1 (5-19); Aspartate Amino Transferase 38 U/L (0-32); Blood Urea Nitrogen 12 mg/dL (6-20); Calcium 8.9 mg/dL (8.5-10.5); Carbon Dioxide 23 mmol/L (22-29); Chloride 108 mmol/L (98-107); Globulin 2.4 g/dL (1.3-4.6); Glomerular Filtration Rate 131.7 mL/min (90-130); Glucose 93 mg/dL (65-115); Osmolality Calculated 289 mOsm/kg (285-295); Potassium 4.1 mmol/L (3.5-5.1); Sodium 140 mmol/L (136-145); Total Bilirubin 0.4 mg/dL (0.15-1.2); Total Protein 5.9 g/dL (6.6-8.7)
[2023-07-10 05:37] VITALS: BMI 36.1
[2023-07-10] MEDS: acetaminophen 325 mg Tablet 650 MG PO (07:33)
[2023-07-10] MEDS: sodium chloride 0.9% 1,000 ML 100 ML IV (07:34)
[2023-07-10 07:43] VITALS: BP 129/84; PULSE 91; RESP 19; TEMP 36.1; O2SAT 97
[2023-07-10] MEDS: losartan 50 mg Tablet PO (08:46)
[2023-07-10] MEDS: enoxaparin 40 mg/0.4 mL Syringe SUBCUT (08:46)
[2023-07-10 09:48] VITALS: PULSE 102; RESP 15; O2SAT 98
[2023-07-10 12:30] VITALS: BP 132/86; PULSE 103; RESP 18; TEMP 36.8; O2SAT 96
--- NOTE | 2023-07-10 14:25 | PC.NURSE ---
Release of information completed by pt at 1200 to have paperwork faxed to Cherelle Hood MD. Placed into pt chart.
--- NOTE | 2023-07-10 16:46 | P.DS_ITS ---
Discharge Providers Date of Admission: 07/08/23 06:49 Date of Discharge: July 10, 2023 Attending Provider at Admission: Teagan Lara MD Attending Provider at Discharge: Sabina Aguilar MD Primary Care Provider: Serg Altman DO Diagnoses at Discharge Discharge Diagnosis (1) Sepsis: Status: Acute (2) UTI (urinary tract infection): Status: Acute Reason for Visit Reason for Visit: fever, headache ache, body ache, cancer pt Hospital Course Hospital Course Patient is a 48-year-old lady with triple negative breast cancer who underwent mastectomy bilaterally with with placement of tissue expanders and implants on June 21, 2023. She is currently on immunotherapy with Keytruda. She presented to the emergency room on July 08, 2023 with chief complaints of abdominal discomfort fever chills and rigors. She had Tmax up to 101 Fahrenheit. Did not have any localizing symptoms per se except for the abdominal pain. Her drains were pulled out 2 to 3 days prior to onset of symptoms. She was diagnosed with a urinary tract infection. Urine analysis showed greater than 100 WBCs, 1+ bacteria, 2+ leukocyte Estrace, negative nitrate. Urine culture was obtained, however showed greater than 100,[address] therefore not worked up further. Patient had been taking antibiotics previously as outpatient, she does not know which ones these were at this point in time. CT of the abdomen and pelvis was without any signs of hydronephrosis or other abdominal pathology. Patient improved with empiric treatment with piperacillin/tazobactam. She improved clinically. Leukocytosis resolved. She has been afebrile for over 24 hours. She denies any localizing urinary symptoms. Is being discharged today on empiric treatment with ciprofloxacin, was advised to take it over the next 7 days. Blood culture was negative. CT of the chest abdomen and pelvis was negative for any gross pathology. Her drain site and recent mastectomy sites were healing well without any signs of cellulitis or underlying infection. She has a follow- up scheduled at [facility] tomorrow. Physical Exam Narrative: General: No acute distress, AO x3 HEENT: PERRLA, pupils bilaterally equal and reactive, pallors not present Chest: Normal vesicular breath sounds, no added sounds, equal good air entry bilaterally CVS: S1-S2 regular, no murmurs, no tachycardia, no gallops, no rubs Abdomen: Soft, nontender, no organomegaly, bowel sounds present Neuro: No focal deficits, no facial deformity, AO x3, power 5/5 in all limbs Discharge Data Studies Completed and Pending Completed Studies During Hospitalization Category Date Time Status CT chest w con* [id number] Stat Cat Scan 07/08/23 04:[address] kidney stone [id number] Stat Cat Scan 07/08/23 06:39 Completed XR chest 1V portable [id number] Stat Exams 07/08/23 03:06 Completed Pending at discharge Category Date Time Status Blood Culture Stat Lab 07/08/23 03:31 Results Radiology Impressions Chest X-Ray 07/08/23 03:06 IMPRESSION: No evidence of active cardiopulmonary disease. Chest CT 07/08/23 04:53 IMPRESSION: No acute intrathoracic pathology. Abdomen/Pelvis CT 07/08/23 06:39 IMPRESSION: No acute findings. Laboratory Results WBC 6.30 10^3/uL (3.29-11.43) 07/10/23 04:12 RBC 3.15 10^6/uL (3.85-5.65) L 07/10/23 04:12 Hgb 10.10 g/dL (11.27-16.99) L 07/10/23 04:12 Hct 30.5 % (36-47) L 07/10/23 04:12 MCV 96.8 fl (85-98) 07/10/23 04:12 MCH 32.1 pg (27-33) 07/10/23 04:12 MCHC 33.1 g/dL (30-55) 07/10/23 04:12 RDW 11.5 % (12.1-15.1) L 07/10/23 04:12 Plt Count 206 10^3/cmm (157-399) 07/10/23 04:12 MPV 9.7 fL (7.4-10.4) 07/10/23 04:12 Neut % (Auto) 38.6 % 07/10/23 04:12 Lymph % (Auto) 26.8 % 07/10/23 04:12 [place] % (Auto) 7.1 % 07/10/23 04:12 Eos % (Auto) 26.2 % 07/10/23 04:12 Baso % (Auto) 1.1 % 07/10/23 04:12 Neut # (Auto) 2.43 10^3/uL (1.8-7.7) 07/10/23 04:12 Lymph # (Auto) 1.7 10^3/uL (0.8-4.8) 07/10/23 04:12 [place] # (Auto) 0.5 10^3/uL (0.2-0.9) 07/10/23 04:12 Eos # (Auto) 1.7 10^3/uL (0.0-0.8) H 07/10/23 04:12 Baso # (Auto) 0.1 10^3/uL (0.0-0.1) 07/10/23 04:12 Nucleated RBC % (auto) 0 % 07/10/23 04:12 Nucleated RBCs # 0.0 /100WBC 07/10/23 04:12 Sodium 140 mmol/L (136-145) 07/10/23 04:12 Potassium 4.1 mmol/L (3.5-5.1) 07/10/23 04:12 Chloride 108 mmol/L (98-107) H 07/10/23 04:12 Carbon Dioxide 23 mmol/L (22-29) 07/10/23 04:12 Anion Gap 13.1 (5-19) 07/10/23 04:12 BUN 12 mg/dL (6-20) 07/10/23 04:12 Creatinine 0.5 mg/dL (0.5-0.9) 07/10/23 04:12 GFR Calculation 131.7 mL/min (90-130) H 07/10/23 04:12 Glucose 93 mg/dL (65-115) 07/10/23 04:12 Calculated Osmolality 289 mOsm/kg (285-295) 07/10/23 04:12 Lactic Acid 1.2 mmol/L (0.5-2.2) 07/08/23 03:12 Calcium 8.9 mg/dL (8.5-10.5) 07/10/23 04:12 Magnesium 1.9 mg/dL (1.7-2.3) 07/09/23 04:05 Total Bilirubin 0.4 mg/dL (0.15-1.2) 07/10/23 04:12 AST 38 U/L (0-32) H 07/10/23 04:12 ALT 69 U/L (0-33) H 07/10/23 04:12 Alkaline Phosphatase 124 U/L (35-105) H 07/10/23 04:12 C-Reactive Protein 20.4 mg/L (0.0-4.9) H 07/09/23 04:05 Total Protein 5.9 g/dL (6.6-8.7) L 07/10/23 04:12 Albumin 3.5 g/dL (3.5-5.2) 07/10/23 04:12 Globulin 2.4 g/dL (1.3-4.6) 07/10/23 04:12 Vitamin B12 1012 pg/mL (232-1245) 07/08/23 03:12 Procalcitonin 0.12 ng/mL (0-0.5) 07/08/23 03:12 Urine Color Light yellow (Yellow) 07/08/23 05:32 Urine Appearance Hazy (CLEAR) A 07/08/23 05:32 Urine pH 6 (5-7) 07/08/23 05:32 Ur Specific [place] 1.005 (1.005-1.030) 07/08/23 05:32 Urine Protein Neg (Negative) 07/08/23 05:32 Urine Glucose (UA) Norm (Normal) 07/08/23 05:32 Urine Ketones Negative (Negative) 07/08/23 05:32 Urine Blood 2+ (Negative) H 07/08/23 05:32 Urine Nitrate Negative (Negative) 07/08/23 05:32 Urine Bilirubin Neg (Negative) 07/08/23 05:32 Urine Urobilinogen Neg mg/dL (Negative) 07/08/23 05:32 Ur Leukocyte Esterase 2+ (Negative) H 07/08/23 05:32 Urine RBC 5-10 /hpf (0-2) H 07/08/23 05:32 Urine WBC >100 /hpf (0-5) H 07/08/23 05:32 Ur Squamous Epith Cells 5-10 /hpf (0-5) H 07/08/23 05:32 Amorphous Sediment Not Reportable 07/08/23 05:32 Urine Bacteria 1+ /hpf (NONE) H 07/08/23 05:32 Vitals Last Vital Signs Temp 98.2 F 07/10/23 12:30 Pulse 103 H 07/10/23 12:30 Resp 18 07/10/23 12:30 BP 132/86 07/10/23 12:30 Pulse Ox 96 07/10/23 12:30 O2 Del Method Room Air 07/10/23 12:30 Discharge Plan Discharge Patient Disposition: Home Condition: Stable Prescriptions: New Cipro 500 mg tablet 500 mg PO BID 7 Days Qty: 14 0RF Continued losartan 50 mg tablet 50 mg PO QAM lorazepam 1 mg tablet 0.5 - 1 mg PO Q6H PRN (Reason: Severe Nausea) Qty: 30 3RF promethazine 25 mg tablet 25 mg PO Q6H PRN (Reason: nausea and vomiting) Qty: 30 3RF sumatriptan succinate 100 mg tablet 50 mg PO DAILY PRN (Reason: Migraine Headache) lidocaine-prilocaine 2.5-2.5 % cream See Rx Instructions .ROUTE .COMPLEX Rx Instructions: apply 30 minutes prior to port access omeprazole 20 mg capsule,delayed release(DR/EC) 20 mg PO QPM Discharge Orders: Discharge Order (Routine); Ordered 07/10/23 Ordered By: Sabina Aguilar Referrals: Serg Altman DO [Primary Care Provider] - 07/12/23 8:00 am Patient Instructions: Ciprofloxacin (By mouth), Urinary Tract Infection in Women (GEN), Opioid Safety Discharge Attestations Time Spent in Discharge Care*: greater than 30 min Quality Metrics Clinical Quality Measures [ No reported AMI, CVA or VTE this stay] Coding Level of Care Code Acute Code for Chg Fwd Diagnoses Sepsis A41.9 UTI (urinary tract infection) N39.0
[2023-07-10 16:57] VITALS: BP 132/86; PULSE 103; RESP 18; TEMP 36.8; O2SAT 96
--- NOTE | 2023-07-10 16:58 | PC.NURSE ---
Port de-accessed per protocol. Tolerated well.
--- NOTE | 2023-07-10 17:59 | PC.NURSE ---
Pt calls this RN p discharge to report prior anaphylactic reaction to Cipro. Notified Dr. Aguilar and new order for Levofloxacin 750mg DAILY x7days given. [facility].
== END 2023-07-10 16:58 | disposition home or self-care (01) | DRG 872 ==
LOC: ER 08:36 → MEDSURG 09:06
PROVIDERS: Emergency Medicine; Internal Medicine; Admitting Provider Internal Medicine; Emergency Provider Family Medicine; PCP Electrodiagnostic Medicine; Visit Provider Student in an Organized Health Care Education/Training Program
DX: A41.9 Sepsis, unspecified organism (principal); N39.0 Urinary tract infection, site not specified; D84.9 Immunodeficiency, unspecified; I10 Essential (primary) hypertension; D64.9 Anemia, unspecified; Z90.13 Acquired absence of bilateral breasts and nipples; C50.919 Malignant neoplasm of unspecified site of unspecified female breast
CPT/HCPCS: 36415; 36591; 71045; 71260; 74176; 80048; 80053; 81001; 82607; 83605; 83735; 84145; 85025; 86140; 87040; 87086; 93005; 96365; 96366; 96372; 96375; 99285; J0744; J1100; J1200; J1650; J2543; J7030; J7120; Q9967

== ENCOUNTER 2023-07-26 07:13 | Emergency (ER) | payer OTHER, SELFPAY ==
[2023-07-26 07:19] VITALS: BP 141/82; PULSE 119; RESP 18; TEMP 37.1; O2SAT 95; BMI 31.1
--- NOTE | 2023-07-26 07:30 | W.ED.FEVER ---
HPI - Fever General: Chief Complaint: Fever Stated Complaint: fever, body ache Time Seen by Provider: 07/26/23 07:21 Source: patient Mode of arrival: ambulatory History of Present Illness: 40-year-old female presents emergency room with complaint of fever as well as some dehiscence of incision from her right mastectomy with serosanguineous drainage. Temp up to 102 at home no purulent drainage from the incision. She has had generalized myalgias and headache as well. Patient has a history of breast cancer was diagnosed by biopsy of a at axillary lymph node. The initial report states poorly differentiated adeno CA was triple negative they favored breast cancer as a source she get a secondary opinion at [place] and they have been treating her as a triple negative breast CI to put. She is coping with primary cycles of chemo and radiation and is currently on Keytruda she got a single dose recently. On arrival she is tachycardic. She denies dysuria urgency or frequency she was hospitalized recently for cystitis. MD elicited complaint: fever Exacerbating factors: nothing Relieving factors: nothing Associated symptoms: Reports cough; Deny abdominal pain, flank pain, chills, chest pain, confusion, diarrhea, dysuria, extremity pain, headache(s), myalgias, nasal congestion, nausea, night sweats, rash, rhinorrhea, short of breath, sinus pain, stiffness, sore throat, vaginal discharge, vomiting or weight loss Review of Systems Const: Denies: chills or night sweats ENMT: Denies: nasal congestion or sinus pain Card: Denies: chest pain Resp: Denies: dyspnea GI: Denies: abdominal pain, nausea, vomiting or diarrhea : Denies: flank pain, dysuria or vaginal discharge Musc: Denies: extremity pain Skin/Breast: Denies: rash Neuro: Denies: headache(s) or confusion PFSH ED PFSH: Medical History (Updated 07/26/23 @ 11:14 by Tre Morales DO) Breast cancer Surgical History (Updated 07/26/23 @ 08:23 by Tre Morales DO) H/O mastectomy History of left breast biopsy Family History Grandfather Cancer Prostate Father Diabetes Hypertension Mother Diabetes Hypertension Other CAD (coronary artery disease) Denies family history of Clotting disorder Dementia Hyperlipidemia Psychiatric illness Chronic kidney disease (CKD) Suicide Anesthesia complication Bleeding disorder Lung disease Stroke Social History Smoking and tobacco/nicotine status: never used tobacco/nicotine Alcohol intake: current Alcohol intake frequency: few times a month Physical Exam Const: COMMON NORMALS: no acute distress GENERAL APPEARANCE: cooperative and comfortable ORIENTATION/CONSCIOUSNESS: Yes awake, Yes oriented to person, Yes oriented to place and Yes oriented to time HENMT: COMMON NORMALS: normocephalic, atraumatic and hearing grossly normal bilaterally HEAD & SCALP: normocephalic and atraumatic Resp: COMMON NORMALS: normal respiratory effort, No retractions, No use of accessory muscles and clear to auscultation bilaterally AUSCULTATION: clear to auscultation bilaterally Cardio: COMMON NORMALS: regular rate, regular rhythm and No murmurs present (Cardio) RATE: regular rate RHYTHM: regular rhythm GI: COMMON NORMALS: Soft to palpation and No hepatosplenomegaly present AUSCULTATION: Yes normoactive bowel sounds PALPATION: Yes Soft to palpation, No Tenderness to palpation present (GI), No Guarding due to palpation present (GI) and Yes No hepatosplenomegaly present Extremity: COMMON NORMALS: normal to inspection, capillary refill normal, no clubbing, cyanosis or edema, no calf tenderness and no pedal edema Neuro: SENSORIUM/ORIENTATION: Yes oriented to person, Yes oriented to place and Yes oriented to time Skin: COMMON NORMALS: no rashes or lesions noted GENERAL SKIN EXAM: no rashes or lesions noted Course Vital Signs: Vital signs: Vital Signs Temperature 98.8 F 07/26/23 07:19 Pulse Rate 114 H 07/26/23 10:30 Respiratory Rate 16 07/26/23 08:31 Blood Pressure 124/78 07/26/23 10:30 Pulse Oximetry 96 07/26/23 10:30 Oxygen Delivery Me thod Room Air 07/26/23 10:30 MDM - Fever Medical Decision Making Labs and imaging reviewed. Patient given cefepime dose IV here will discharge home with cefdinir stop doxycycline. Reviewed with her oncologist recommend follow-up on culture reports. Return if has further problems or changes symptoms. Medical Records I reviewed the patient's medical records. Lab Data I reviewed the patient's lab results. 07/26/23 07:45 07/26/23 07:45 Radiology Impressions Breast Ultrasound 07/26/23 08:19 IMPRESSION: No visible abscess. Chest X-Ray 07/26/23 10:03 IMPRESSION: No acute findings. Laboratory Results WBC 12.45 10^3/uL (3.29-11.43) H 07/26/23 07:45 RBC 4.14 10^6/uL (3.85-5.65) 07/26/23 07:45 Hgb 13.00 g/dL (11.27-16.99) 07/26/23 07:45 Hct 39.4 % (36-47) 07/26/23 07:45 MCV 95.2 fl (85-98) 07/26/23 07:45 MCH 31.4 pg (27-33) 07/26/23 07:45 MCHC 33.0 g/dL (30-55) 07/26/23 07:45 RDW 11.5 % (12.1-15.1) L 07/26/23 07:45 Plt Count 244 10^3/cmm (157-399) 07/26/23 07:45 MPV 9.5 fL (7.4-10.4) 07/26/23 07:45 Neut % (Auto) 86.8 % 07/26/23 07:45 Lymph % (Auto) 4.0 % 07/26/23 07:45 [place] % (Auto) 5.3 % 07/26/23 07:45 Eos % (Auto) 3.1 % 07/26/23 07:45 Baso % (Auto) 0.5 % 07/26/23 07:45 Neut # (Auto) 10.81 10^3/uL (1.8-7.7) H 07/26/23 07:45 Lymph # (Auto) 0.5 10^3/uL (0.8-4.8) L 07/26/23 07:45 [place] # (Auto) 0.7 10^3/uL (0.2-0.9) 07/26/23 07:45 Eos # (Auto) 0.4 10^3/uL (0.0-0.8) 07/26/23 07:45 Baso # (Auto) 0.1 10^3/uL (0.0-0.1) 07/26/23 07:45 Nucleated RBC % (auto) 0 % 07/26/23 07:45 Nucleated RBCs # 0.0 /100WBC 07/26/23 07:45 Sodium 137 mmol/L (136-145) 07/26/23 07:45 Potassium 3.9 mmol/L (3.5-5.1) 07/26/23 07:45 Chloride 102 mmol/L (98-107) 07/26/23 07:45 Carbon Dioxide 23 mmol/L (22-29) 07/26/23 07:45 Anion Gap 15.9 (5-19) 07/26/23 07:45 BUN 16 mg/dL (6-20) 07/26/23 07:45 Creatinine 0.6 mg/dL (0.5-0.9) 07/26/23 07:45 GFR Calculation 106.7 mL/min (90-130) 07/26/23 07:45 Glucose 125 mg/dL (65-115) H 07/26/23 07:45 Calculated Osmolality 287 mOsm/kg (285-295) 07/26/23 07:45 Lactic Acid 1.6 mmol/L (0.5-2.2) 07/26/23 07:45 Calcium 10.1 mg/dL (8.5-10.5) 07/26/23 07:45 Total Bilirubin 0.5 mg/dL (0.15-1.2) 07/26/23 07:45 AST 40 U/L (0-32) H 07/26/23 07:45 ALT 65 U/L (0-33) H 07/26/23 07:45 Alkaline Phosphatase 124 U/L (35-105) H 07/26/23 07:45 Total Protein 7.5 g/dL (6.6-8.7) 07/26/23 07:45 Albumin 4.6 g/dL (3.5-5.2) 07/26/23 07:45 Globulin 2.9 g/dL (1.3-4.6) 07/26/23 07:45 Urine Color Straw (Yellow) 07/26/23 09:43 Urine Appearance Clear (CLEAR) 07/26/23 09:43 Urine pH 5 (5-7) 07/26/23 09:43 Ur Specific [place] 1.010 (1.005-1.030) 07/26/23 09:43 Urine Protein Neg (Negative) 07/26/23 09:43 Urine Glucose (UA) Norm (Normal) 07/26/23 09:43 Urine Ketones Negative (Negative) 07/26/23 09:43 Urine Blood Neg (Negative) 07/26/23 09:43 Urine Nitrate Negative (Negative) 07/26/23 09:43 Urine Bilirubin Neg (Negative) 07/26/23 09:43 Urine Urobilinogen Neg mg/dL (Negative) 07/26/23 09:43 Ur Leukocyte Esterase Negative (Negative) 07/26/23 09:43 Coronavirus 229E (PCR) Not detected (NOT DETECT) 07/26/23 07:30 Influenza Type A Ag negative (Negative) 07/26/23 07:30 Influenza Type B Ag negative (Negative) 07/26/23 07:30 SARS-CoV-2 (PCR) Not detected (NOT DETECT) 07/26/23 07:30 All radiology interpretation(s) finalized by discharge Discharge Plan Discharge Patient Disposition: Home Clinical Impression: Fever of unknown origin, Triple negative breast carcinoma Condition: Stable Prescriptions: New cefdinir 300 mg capsule 300 mg PO Q12H 10 Days Qty: 20 0RF Discontinued doxycycline hyclate 100 mg Tablet 100 mg PO BID No Action losartan 50 mg tablet 50 mg PO QAM lorazepam 1 mg tablet 0.5 - 1 mg PO Q6H PRN (Reason: Severe Nausea) Qty: 30 3RF promethazine 25 mg tablet 25 mg PO Q6H PRN (Reason: nausea and vomiting) Qty: 30 3RF ibuprofen 200 mg Tablet 600 mg PO Q6H PRN (Reason: Pain) Claritin 10 mg Tablet 10 mg PO DAILY sumatriptan succinate 100 mg tablet 50 mg PO DAILY PRN (Reason: Migraine Headache) lidocaine-prilocaine 2.5-2.5 % cream See Rx Instructions .ROUTE .COMPLEX Rx Instructions: apply 30 minutes prior to port access omeprazole 20 mg capsule,delayed release(DR/EC) 20 mg PO QPM Discharge Orders: Discharge ED (Routine); Ordered 07/26/23 Ordered By: Tre Morales Referrals: Serg Altman DO [Primary Care Provider] - Discharge Diet: Usual diet Discharge Activity: Increase activity as tolerated Patient Instructions: Opioid Safety, Pain Management Activity Restrictions/Additional Instructions: Thank you for choosing [facility] for your healthcare needs today. Please realize this is an emergency room and that we are providing you with a medical screening exam and this may not be complete and all inclusive of all the testing and or work up that you may need to determine your ailment or severity of your illness. It is very important that you follow up as instructed or that you return to the Emergency Department should you have concerns or if your condition changes or worsens in any way. Follow-up with your oncology team as previously scheduled if symptoms worsen return to the emergency room Coding Level of Care Code ED Angle Shear Operator for Ganesh [place]
--- NOTE | 2023-07-26 07:39 | ECG_ITS ---
[facility] Test Date: 2023-07-26 Pat Name: Erica Marlow Department: Room: Gender: Female Senior Economist: : 1975 Requested By: Tre Chow Order Number: [id number] Fabian MD: Liu Snyder M.D. Measurements Intervals [place] Rate: 115 P: 68 MO: 152 QRS: 57 QRSD: 94 T: 45 QT: 326 QTc: 452 Interpretive Statements SINUS TACHYCARDIA NONSPECIFIC T-WAVE ABNORMALITY Compared to ECG 07/08/2023 05:59:14 No significant changes Electronically Signed On 07-26-2023 9:15:17 CREATIVE SERVICES COORDINATOR by Liu Snyder M.D. [id number]
[2023-07-26 07:53] LABS: Basophils # 0.1 10^3/uL (0.0-0.1); Basophils % 0.5 %; Eosinophils # 0.4 10^3/uL (0.0-0.8); Eosinophils % 3.1 %; Hematocrit 39.4 % (36-47); Lymphocytes # 0.5 10^3/uL (0.8-4.8); Mean Corpuscular Hemoglobin 31.4 pg (27-33); Mean Corpuscular Volume 95.2 fl (85-98); Mean Platelet Volume 9.5 fL (7.4-10.4); Monocytes # 0.7 10^3/uL (0.2-0.9); Monocytes % 5.3 %; Neutrophils # 10.81 10^3/uL (1.8-7.7); Neutrophils % 86.8 %; Nucleated Red Blood Cells % 0 %; Platelet Count 244 10^3/cmm (157-399); Red Blood Count 4.14 10^6/uL (3.85-5.65); Red Cell Distribution Width 11.5 % (12.1-15.1); White Blood Count 12.45 10^3/uL (3.29-11.43)
[2023-07-26] MEDS: ondansetron 2 mg/ML SDV 2 mL 4 MG IVP (08:04)
[2023-07-26] MEDS: cefepime 1,000 MG in sodium chloride 0.9% (plus) 50 ML 100 MG IV (08:04)
[2023-07-26 08:11] LABS: Lactic Sepsis W/Reflex 1.6 mmol/L (0.5-2.2)
[2023-07-26 08:12] LABS: Alanine Aminotransferase 65 U/L (0-33); Albumin Level 4.6 g/dL (3.5-5.2); Alkaline Phosphatase 124 U/L (35-105); Anion Gap 15.9 (5-19); Aspartate Amino Transferase 40 U/L (0-32); Blood Urea Nitrogen 16 mg/dL (6-20); Calcium 10.1 mg/dL (8.5-10.5); Carbon Dioxide 23 mmol/L (22-29); Chloride 102 mmol/L (98-107); Globulin 2.9 g/dL (1.3-4.6); Glomerular Filtration Rate 106.7 mL/min (90-130); Glucose 125 mg/dL (65-115); Osmolality Calculated 287 mOsm/kg (285-295); Potassium 3.9 mmol/L (3.5-5.1); Sodium 137 mmol/L (136-145); Total Bilirubin 0.5 mg/dL (0.15-1.2); Total Protein 7.5 g/dL (6.6-8.7)
[2023-07-26 08:17] LABS: Influenza A by IFA negative (Negative); Influenza B by IFA negative (Negative)
--- NOTE | 2023-07-26 08:19 | USR_ITS ---
PROCEDURE INFORMATION: Exam: US Right Breast Limited; Cellulitis or Abscess Evaluation Exam date and time: 07/26/2023 8:49 AM Age: 48 years old Clinical indication: Other: Redness, minimal drainage; Prior surgery; Surgery date: 1-6 months; Surgery type: Masectomy; Additional info: Abscess/drainage from R breast mastectomy incision TECHNIQUE: Imaging protocol: Right breast ultrasound. Exam limited to the quadrant(s) of clinical concern. Exam focused on the evaluation of cellulitis or abscess. Exam is an emergent request and a non-BIRADS study. COMPARISON: No relevant prior studies available. FINDINGS: Breast/Soft tissues: Breast implant is present. The visible portion of the capsule is intact. The visible breast parenchyma is unremarkable. There is no fluid collection. US/US breast RT limited* [id number] IMPRESSION: No visible abscess.
[2023-07-26 08:31] VITALS: BP 125/64; PULSE 111; RESP 16; O2SAT 97
[2023-07-26 09:30] VITALS: BP 132/74; PULSE 115; O2SAT 99
[2023-07-26 09:44] LABS: Adenovirus Not Detected (NOT DETECT); Chlamydia Pneumoniae Not Detected (NOT DETECT); Coronavirus 229E,HKU1,NL63,OC4 Not Detected (NOT DETECT); Human Metapneumovirus Not Detected (NOT DETECT); Human Rhinovirus/Enterovirus Not Detected (NOT DETECT); Influenza A Not Detected (NOT DETECT); Influenza A H1 Not Detected (NOT DETECT); Influenza A H1-2009 Not Detected (NOT DETECT); Influenza A H3 Not Detected (NOT DETECT); Influenza B Not Detected (NOT DETECT); Mycoplasma Pneumoniae Not Detected (NOT DETECT); Parainfluenza Virus Type 1 Not Detected (NOT DETECT); Parainfluenza Virus Type 2 Not Detected (NOT DETECT); Parainfluenza Virus Type 3 Not Detected (NOT DETECT); Parainfluenza Virus Type 4 Not Detected (NOT DETECT); Respiratory Syncytial Virus A Not Detected (NOT DETECT); Respiratory Syncytial Virus B Not Detected (NOT DETECT); SARS-COV-2 Not Detected (NOT DETECT)
[2023-07-26 09:57] LABS: Add Urine Microscopic? NO; Charge for UA Resulting for Rev
--- NOTE | 2023-07-26 10:03 | XRR_ITS ---
PROCEDURE INFORMATION: Exam: XR Chest Exam date and time: 07/26/2023 10:07 AM Age: 48 years old Clinical indication: Fever TECHNIQUE: Imaging protocol: Radiologic exam of the chest. Views: 1 view. COMPARISON: CT chest w con* [id number] 07/08/2023 5:01 AM FINDINGS: Tubes, catheters and devices: There is a right chest port with the line tip appropriately positioned in the lower SVC near the cavoatrial junction. Lungs: There is no consolidation. There is mild coarse reticular opacity in the lung bases corresponding to the subsegmental atelectasis visible on chest CT 07/08/2023. Pleural spaces: There is no pleural effusion or pneumothorax. Heart/Mediastinum: Cardiomediastinal contours are unremarkable. Bones/joints: Bones are unremarkable. XR/XR chest 1V portable [id number] IMPRESSION: No acute findings.
[2023-07-26 10:14] LABS: Bilirubin Urine Neg (Negative); Blood Urine Neg (Negative); Glucose Urine UA Norm (Normal); Ketones Urine Negative (Negative); Leukocyte Esterase Urine Negative (Negative); Nitrate Urine Negative (Negative); Protein Urine Neg (Negative); Urine Appearance Clear (CLEAR); Urine Color Straw (Yellow); Urobilinogen Urine Neg (Negative); pH Urine 5 (5-7)
[2023-07-26 10:30] VITALS: BP 124/78; PULSE 114; O2SAT 96
== END 2023-07-26 11:38 | disposition home or self-care (01) ==
PROVIDERS: Emergency Provider Family Medicine; PCP Electrodiagnostic Medicine
DX: R50.9 Fever, unspecified (principal); C50.919 Malignant neoplasm of unspecified site of unspecified female breast; Z17.1 Estrogen receptor negative status [ER-]; Z11.52 Encounter for screening for COVID-19; Z79.60 Long term (current) use of unspecified immunomodulators and immunosuppressants; Z79.899 Other long term (current) drug therapy
CPT/HCPCS: 36415; 71045; 76642; 80053; 81003; 83605; 85025; 87040; 87635; 87804; 93005; 96365; 96375; 99285; J0692; J2405; J7030

== ENCOUNTER 2023-09-06 15:53 | Inpatient (IN) | payer OTHER, SELFPAY ==
[2023-09-06] VITALS (7 sets, daily range): BP systolic 132–192; BP diastolic 63–90; PULSE 116–126; RESP 15–22; TEMP 37.2–39.3; O2SAT 94–100; BMI 32.8
--- NOTE | 2023-09-06 16:29 | XRR_ITS ---
PROCEDURE INFORMATION: Exam: XR Chest Exam date and time: 09/06/2023 4:35 PM Age: 48 years old Clinical indication: Fever; Additional info: Fever, oncology PT TECHNIQUE: Imaging protocol: Radiologic exam of the chest. Views: 1 view. COMPARISON: CR XR chest 1V portable [id number] 26/07/2023 10:07 FINDINGS: Tubes, catheters and devices: Right Uozuhj-[id number]-Cgyn with tip in the distal SVC. Lungs: Unremarkable. No consolidation. Pleural spaces: Unremarkable. No pleural effusion. No pneumothorax. Heart/Mediastinum: Unremarkable. No cardiomegaly. Bones/joints: Unremarkable. XR/XR chest 1V portable [id number] IMPRESSION: No acute findings.
--- NOTE | 2023-09-06 16:30 | W.ED.FEVER ---
Documented by User: Jose Keller DO 09/06/23 18:06 HPI - Fever General: Chief Complaint: Fever Stated Complaint: fever Time Seen by Provider: 09/06/23 16:18 Source: patient and family Mode of arrival: ambulatory Limitations: no limitations History of Present Illness: This patient presents to emergency department because of fever. She states that she felt unwell over the weekend but had no fever as far as she is aware. Went to [place] yesterday for her hemotherapy treatment for her breast cancer. She states that she was fatigued and had body aches but completed that therapy. Today she felt okay upon awakening but throughout the day has developed body aches and fever. She states she has not had sore throat but has had a dry cough but is currently undergoing radiation therapy for her breast cancer. She denies any diarrhea. 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 She is immunized against influenza but not COVID. She denies any dysuria. She denies skin rash. MD elicited complaint: fever Pertinent past history: immunosuppression Associated symptoms: Reports chills; Deny abdominal pain, flank pain, chest pain, diarrhea, dysuria, extremity pain, headache(s), nasal congestion, nausea or vomiting Review of Systems Const: Reports: fever(s), chills and body aches Eyes: Denies: change in vision ENMT: Denies: throat pain, odynophagia, nasal discharge or nasal congestion Card: Denies: chest pain or palpitations Resp: Reports: non-productive cough; Denies: dyspnea or productive cough GI: Denies: abdominal pain, nausea, vomiting or diarrhea : Denies: flank pain, difficulty voiding, dysuria or urinary frequency Musc: Reports: back pain; Denies: neck pain, extremity pain or extremity swelling Skin/Breast: Denies: rash or pruritus Neuro: Denies: headache(s), numbness in extremities or weakness in extremities PFSH ED PFSH: Medical History Pyelonephritis Chemotherapy induced neutropenia Breast cancer Surgical History H/O mastectomy History of left breast biopsy Family History Grandfather Cancer Prostate Father Diabetes Hypertension Mother Diabetes Hypertension Other CAD (coronary artery disease) Denies family history of Clotting disorder Dementia Hyperlipidemia Psychiatric illness Chronic kidney disease (CKD) Suicide Anesthesia complication Bleeding disorder Lung disease Stroke Social History Smoking and tobacco/nicotine status: never used tobacco/nicotine Alcohol intake: current Alcohol intake frequency: few times a month Physical Exam Narrative: EXAM NARRATIVE: Patient is alert but appears ill. She answers questions in a goal-directed fluent fashion. Const: COMMON NORMALS: average body habitus, patient oriented x3 and alert GENERAL APPEARANCE: cooperative HENMT: COMMON NORMALS: normocephalic, EAC's normal, Normal nasal mucous membranes and turbinates present, moist oral mucous membranes and oropharynx normal HEAD & SCALP: normocephalic FACE & SINUS: normal facial exam, sinuses nontender and face symmetric NOSE: Normal nasal mucous membranes and turbinates present EXTERNAL AUDITORY CANAL: EAC's normal Eye: COMMON NORMALS: Equal, round and reactive pupils present, EOMs intact bilaterally and conjunctivae normal CONJUNCTIVA: Yes conjunctivae normal PUPIL: Yes Equal, round and reactive pupils present Neck/C-Spine: COMMON NORMALS: full ROM, no lymphadenopathy and no JVD Resp: COMMON NORMALS: normal respiratory effort, No retractions, No use of accessory muscles and clear to auscultation bilaterally AUSCULTATION: clear to auscultation bilaterally Cardio: COMMON NORMALS: no JVD, regular rate, regular rhythm, No murmurs present (Cardio) and Peripheral pulses 2+ throughout RATE: regular rate RHYTHM: regular rhythm PERIPHERAL PULSES: Peripheral pulses 2+ throughout GI: COMMON NORMALS: Normal to inspection, nondistended, normoactive bowel sounds present and Soft to palpation PALPATION: Yes Soft to palpation : COMMON NORMALS: Yes no CVA tenderness BLADDER/KIDNEY EXAM: Yes no CVA tenderness Back/Pelvis: COMMON NORMALS: no CVA tenderness, thoracic and lumbar spine normal to inspection, thoraco-lumbar ROM normal and straight leg raise negative bilaterally LUMBAR SPINE/LOWER BACK: Yes paraspinal muscle tenderness Extremity: COMMON NORMALS: normal to inspection, full ROM, capillary refill normal, no calf tenderness and no pedal edema Neuro: COMMON NORMALS: patient oriented x3, moves all extremities, no focal motor deficits and no sensory deficits noted SENSORIUM/ORIENTATION: Yes alert CRANIAL NERVES: Yes CN normal except as noted Psych: COMMON NORMALS: mental status grossly normal Skin: COMMON NORMALS: no rashes or lesions noted, no wounds and turgor normal GENERAL SKIN EXAM: no rashes or lesions noted and turgor normal Course Reevaluation(s): Reevaluation #1: This patient presentation was reviewed with the overnight emergency department physician to accumulate remainder of data and plan for disposition and consultation as indicated. Time: 17:41 Reevaluation #2: Was able to discuss with Dr. Logan from the oncology team at [facility] we reviewed her current findings and thus far. She did make recommendations that she would recommend admission at our facility since they are currently on black status meaning they will not have beds for several days and also empiric cefepime pending cultures any other potential source of infection. She also was noted to have MAX and she concurred with recommending fluid resuscitation. Time: 18:06 Consultations: Consultation #1: Call was placed with oncology team at [facility] and the coordinator is paging out the oncology team. Time: 17:46 Vital Signs: Vital signs: Vital Signs Temperature 99.1 F 09/06/23 21:16 Pulse Rate 126 H 09/06/23 21:16 Respiratory Rate 22 H 09/06/23 21:16 Blood Pressure 160/75 09/06/23 21:16 Pulse Oximetry 99 09/06/23 21:16 Oxygen Delivery Me thod Room Air 09/06/23 21:16 MDM - Fever Medical Decision Making Patient with known breast cancer followed by both radiation and medical oncology presented with fever. She had recently been seen at oncology in the last 24 hours and received treatment at that time. No specific symptoms associated with her fever to pinpoint its etiology. Plan will be to do a comprehensive evaluation for fever, discussed with her oncology team regarding recommendations for plan of care. Lab Data I reviewed the patient's lab results. 09/06/23 16:54 09/06/23 16:54 Radiology Impressions Chest X-Ray 09/06/23 16:29 IMPRESSION: No acute findings. Laboratory Results WBC 10.74 10^3/uL (3.29-11.43) 09/06/23 16:54 RBC 4.24 10^6/uL (3.85-5.65) 09/06/23 16:54 Hgb 12.40 g/dL (11.27-16.99) 09/06/23 16:54 Hct 36.8 % (36-47) 09/06/23 16:54 MCV 86.8 fl (85-98) 09/06/23 16:54 MCH 29.2 pg (27-33) 09/06/23 16:54 MCHC 33.7 g/dL (30-55) 09/06/23 16:54 RDW 11.1 % (12.1-15.1) L 09/06/23 16:54 Plt Count 267 10^3/cmm (157-399) 09/06/23 16:54 MPV 8.8 fL (7.4-10.4) 09/06/23 16:54 Neut % (Auto) 87.3 % 09/06/23 16:54 Lymph % (Auto) 2.5 % 09/06/23 16:54 [place] % (Auto) 7.2 % 09/06/23 16:54 Eos % (Auto) 2.1 % 09/06/23 16:54 Baso % (Auto) 0.5 % 09/06/23 16:54 Neut # (Auto) 9.38 10^3/uL (1.8-7.7) H 09/06/23 16:54 Lymph # (Auto) 0.3 10^3/uL (0.8-4.8) L 09/06/23 16:54 [place] # (Auto) 0.8 10^3/uL (0.2-0.9) 09/06/23 16:54 Eos # (Auto) 0.2 10^3/uL (0.0-0.8) 09/06/23 16:54 Baso # (Auto) 0.1 10^3/uL (0.0-0.1) 09/06/23 16:54 Nucleated RBC % (auto) 0 % 09/06/23 16:54 Nucleated RBCs # 0.0 /100WBC 09/06/23 16:54 Sodium 136 mmol/L (136-145) 09/06/23 16:54 Potassium 4.1 mmol/L (3.5-5.1) 09/06/23 16:54 Chloride 100 mmol/L (98-107) 09/06/23 16:54 Carbon Dioxide 22 mmol/L (22-29) 09/06/23 16:54 Anion Gap 18.1 (5-19) 09/06/23 16:54 BUN 20 mg/dL (6-20) 09/06/23 16:54 Creatinine 1.4 mg/dL (0.5-0.9) H 09/06/23 16:54 GFR Calculation 40.1 mL/min (90-130) L 09/06/23 16:54 Glucose 119 mg/dL (65-115) H 09/06/23 16:54 Calculated Osmolality 286 mOsm/kg (285-295) 09/06/23 16:54 Lactic Acid 1.4 mmol/L (0.5-2.2) 09/06/23 16:54 Calcium 9.8 mg/dL (8.5-10.5) 09/06/23 16:54 Total Bilirubin 0.4 mg/dL (0.15-1.2) 09/06/23 16:54 AST 23 U/L (0-32) 09/06/23 16:54 ALT 26 U/L (0-33) 09/06/23 16:54 Alkaline Phosphatase 157 U/L (35-105) H 09/06/23 16:54 Total Protein 7.2 g/dL (6.6-8.7) 09/06/23 16:54 Albumin 3.8 g/dL (3.5-5.2) 09/06/23 16:54 Globulin 3.4 g/dL (1.3-4.6) 09/06/23 16:54 Procalcitonin 1.06 ng/mL (0-0.5) H 09/06/23 16:54 Urine Color Yellow (Yellow) 09/06/23 17:33 Urine Appearance Cloudy (CLEAR) A 09/06/23 17:33 Urine pH 5 (5-7) 09/06/23 17:33 Ur Specific [place] 1.015 (1.005-1.030) 09/06/23 17:33 Urine Protein 2+ (Negative) H 09/06/23 17:33 Urine Glucose (UA) Norm (Normal) 09/06/23 17:33 Urine Ketones Negative (Negative) 09/06/23 17:33 Urine Blood 2+ (Negative) H 09/06/23 17:33 Urine Nitrate Negative (Negative) 09/06/23 17:33 Urine Bilirubin Neg (Negative) 09/06/23 17:33 Urine Urobilinogen Norm mg/dL (Negative) 09/06/23 17:33 Ur Leukocyte Esterase 1+ (Negative) H 09/06/23 17:33 Urine RBC 10-15 /hpf (0-2) H 09/06/23 17:33 Urine WBC 55-80 /hpf (0-5) H 09/06/23 17:33 Ur Squamous Epith Cells 0-4 /hpf (0-5) H 09/06/23 17:33 Ur Transition Epith Cell 0-4 /hpf 09/06/23 17:33 Amorphous Sediment Not Reportable 09/06/23 17:33 Urine Bacteria Trace /hpf (NONE) 09/06/23 17:33 Other Casts Wbc cast 5-10 /lpf 09/06/23 17:33 Urine Mucus 2+ /hpf 09/06/23 17:33 Ur Oval Fat Bodies 1+ /hpf 09/06/23 17:33 Influenza Type A Ag negative (Negative) 09/06/23 16:49 Influenza Type B Ag negative (Negative) 09/06/23 16:49 SARS-CoV-2 Ag (Rapid) negative (Negative) 09/06/23 16:48 Group A Strep Rapid Negative (Negative) 09/06/23 16:48 Discharge Plan Discharge Patient Disposition: Placed in Observation Admit Provider: Kwame Landers Clinical Impression: Triple negative breast carcinoma UTI (urinary tract infection) Qualifiers: Urinary tract infection type: acute cystitis Hematuria presence: with hematuria Qualified Code(s): N30.01 - Acute cystitis with hematuria Fever Qualifiers: Fever type: unspecified Qualified Code(s): R50.9 - Fever, unspecified Coding Level of Care Code ED Diving Judge for Chg Fwd Documented by User: Maurilio Wing DO 02/07/24 22:43 HPI - Fever General: Chief Complaint: Fever Stated Complaint: fever Time Seen by Provider: 09/06/23 16:18 PFSH ED PFSH: Medical History Pyelonephritis Chemotherapy induced neutropenia Breast cancer Surgical History H/O mastectomy History of left breast biopsy Family History Grandfather Cancer Prostate Father Diabetes Hypertension Mother Diabetes Hypertension Other CAD (coronary artery disease) Denies family history of Clotting disorder Dementia Hyperlipidemia Psychiatric illness Chronic kidney disease (CKD) Suicide Anesthesia complication Bleeding disorder Lung disease Stroke Social History Smoking and tobacco/nicotine status: never used tobacco/nicotine Alcohol intake: current Alcohol intake frequency: few times a month Course Vital Signs: Vital signs: Vital Signs Temperature 99.1 F 09/06/23 21:16 Pulse Rate 126 H 09/06/23 21:16 Respiratory Rate 22 H 09/06/23 21:16 Blood Pressure 160/75 09/06/23 21:16 Pulse Oximetry 99 09/06/23 21:16 Oxygen Delivery Me thod Room Air 09/06/23 21:16 MDM - Fever Medical Decision Making Patient with known breast cancer followed by both radiation and medical oncology presented with fever. She had recently been seen at oncology in the last 24 hours and received treatment at that time. No specific symptoms associated with her fever to pinpoint its etiology. Plan will be to do a comprehensive evaluation for fever, discussed with her oncology team regarding recommendations for plan of care. Urinalysis showed urinary tract infection. Discussed this case with Dr. Landers we will put the patient on labs Differential Diagnosis Unlikely abdominal pain, acute appendicitis, calculus of kidney, constipation, diverticulitis, endometriosis, gastroenteritis, pancreatitis or small bowel obstruction Medical Records I reviewed the patient's medical records. Lab Data 09/06/23 16:54 09/06/23 16:54 Radiology Impressions Chest X-Ray 09/06/23 16:29 IMPRESSION: No acute findings. Laboratory Results WBC 10.74 10^3/uL (3.29-11.43) 09/06/23 16:54 RBC 4.24 10^6/uL (3.85-5.65) 09/06/23 16:54 Hgb 12.40 g/dL (11.27-16.99) 09/06/23 16:54 Hct 36.8 % (36-47) 09/06/23 16:54 MCV 86.8 fl (85-98) 09/06/23 16:54 MCH 29.2 pg (27-33) 09/06/23 16:54 MCHC 33.7 g/dL (30-55) 09/06/23 16:54 RDW 11.1 % (12.1-15.1) L 09/06/23 16:54 Plt Count 267 10^3/cmm (157-399) 09/06/23 16:54 MPV 8.8 fL (7.4-10.4) 09/06/23 16:54 Neut % (Auto) 87.3 % 09/06/23 16:54 Lymph % (Auto) 2.5 % 09/06/23 16:54 [place] % (Auto) 7.2 % 09/06/23 16:54 Eos % (Auto) 2.1 % 09/06/23 16:54 Baso % (Auto) 0.5 % 09/06/23 16:54 Neut # (Auto) 9.38 10^3/uL (1.8-7.7) H 09/06/23 16:54 Lymph # (Auto) 0.3 10^3/uL (0.8-4.8) L 09/06/23 16:54 [place] # (Auto) 0.8 10^3/uL (0.2-0.9) 09/06/23 16:54 Eos # (Auto) 0.2 10^3/uL (0.0-0.8) 09/06/23 16:54 Baso # (Auto) 0.1 10^3/uL (0.0-0.1) 09/06/23 16:54 Nucleated RBC % (auto) 0 % 09/06/23 16:54 Nucleated RBCs # 0.0 /100WBC 09/06/23 16:54 Sodium 136 mmol/L (136-145) 09/06/23 16:54 Potassium 4.1 mmol/L (3.5-5.1) 09/06/23 16:54 Chloride 100 mmol/L (98-107) 09/06/23 16:54 Carbon Dioxide 22 mmol/L (22-29) 09/06/23 16:54 Anion Gap 18.1 (5-19) 09/06/23 16:54 BUN 20 mg/dL (6-20) 09/06/23 16:54 Creatinine 1.4 mg/dL (0.5-0.9) H 09/06/23 16:54 GFR Calculation 40.1 mL/min (90-130) L 09/06/23 16:54 Glucose 119 mg/dL (65-115) H 09/06/23 16:54 Calculated Osmolality 286 mOsm/kg (285-295) 09/06/23 16:54 Lactic Acid 1.4 mmol/L (0.5-2.2) 09/06/23 16:54 Calcium 9.8 mg/dL (8.5-10.5) 09/06/23 16:54 Total Bilirubin 0.4 mg/dL (0.15-1.2) 09/06/23 16:54 AST 23 U/L (0-32) 09/06/23 16:54 ALT 26 U/L (0-33) 09/06/23 16:54 Alkaline Phosphatase 157 U/L (35-105) H 09/06/23 16:54 Total Protein 7.2 g/dL (6.6-8.7) 09/06/23 16:54 Albumin 3.8 g/dL (3.5-5.2) 09/06/23 16:54 Globulin 3.4 g/dL (1.3-4.6) 09/06/23 16:54 Procalcitonin 1.06 ng/mL (0-0.5) H 09/06/23 16:54 Urine Color Yellow (Yellow) 09/06/23 17:33 Urine Appearance Cloudy (CLEAR) A 09/06/23 17:33 Urine pH 5 (5-7) 09/06/23 17:33 Ur Specific [place] 1.015 (1.005-1.030) 09/06/23 17:33 Urine Protein 2+ (Negative) H 09/06/23 17:33 Urine Glucose (UA) Norm (Normal) 09/06/23 17:33 Urine Ketones Negative (Negative) 09/06/23 17:33 Urine Blood 2+ (Negative) H 09/06/23 17:33 Urine Nitrate Negative (Negative) 09/06/23 17:33 Urine Bilirubin Neg (Negative) 09/06/23 17:33 Urine Urobilinogen Norm mg/dL (Negative) 09/06/23 17:33 Ur Leukocyte Esterase 1+ (Negative) H 09/06/23 17:33 Urine RBC 10-15 /hpf (0-2) H 09/06/23 17:33 Urine WBC 55-80 /hpf (0-5) H 09/06/23 17:33 Ur Squamous Epith Cells 0-4 /hpf (0-5) H 09/06/23 17:33 Ur Transition Epith Cell 0-4 /hpf 09/06/23 17:33 Amorphous Sediment Not Reportable 09/06/23 17:33 Urine Bacteria Trace /hpf (NONE) 09/06/23 17:33 Other Casts Wbc cast 5-10 /lpf 09/06/23 17:33 Urine Mucus 2+ /hpf 09/06/23 17:33 Ur Oval Fat Bodies 1+ /hpf 09/06/23 17:33 Influenza Type A Ag negative (Negative) 09/06/23 16:49 Influenza Type B Ag negative (Negative) 09/06/23 16:49 SARS-CoV-2 Ag (Rapid) negative (Negative) 09/06/23 16:48 Group A Strep Rapid Negative (Negative) 09/06/23 16:48 XR interpretation done by ED provider, pending radiology final review Discharge Plan Discharge Patient Disposition: Placed in Observation Admit Provider: Kwame Landers Clinical Impression: Triple negative breast carcinoma UTI (urinary tract infection) Qualifiers: Urinary tract infection type: acute cystitis Hematuria presence: with hematuria Qualified Code(s): N30.01 - Acute cystitis with hematuria Fever Qualifiers: Fever type: unspecified Qualified Code(s): R50.9 - Fever, unspecified Coding Level of Care Code ED Diving Judge for Ganesh [place]
[2023-09-06] MEDS: acetaminophen 500 mg Tablet 1000 MG PO ×2 (16:58→23:49)
[2023-09-06] MEDS: lactated ringers 1,000 ML 999 ML IV ×2 (17:00→19:16)
[2023-09-06 17:07] LABS: Basophils # 0.1 10^3/uL (0.0-0.1); Basophils % 0.5 %; Eosinophils # 0.2 10^3/uL (0.0-0.8); Eosinophils % 2.1 %; Hematocrit 36.8 % (36-47); Lymphocytes # 0.3 10^3/uL (0.8-4.8); Lymphocytes % 2.5 %; Mean Corpuscular HGB Conc 33.7 g/dL (30-55); Mean Corpuscular Hemoglobin 29.2 pg (27-33); Mean Corpuscular Volume 86.8 fl (85-98); Mean Platelet Volume 8.8 fL (7.4-10.4); Monocytes # 0.8 10^3/uL (0.2-0.9); Monocytes % 7.2 %; Neutrophils # 9.38 10^3/uL (1.8-7.7); Neutrophils % 87.3 %; Nucleated Red Blood Cells % 0 %; Platelet Count 267 10^3/cmm (157-399); Red Blood Count 4.24 10^6/uL (3.85-5.65); Red Cell Distribution Width 11.1 % (12.1-15.1); White Blood Count 10.74 10^3/uL (3.29-11.43)
[2023-09-06 17:25] LABS: Rapid Strep A Test Negative (Negative)
[2023-09-06 17:26] LABS: Alanine Aminotransferase 26 U/L (0-33); Albumin Level 3.8 g/dL (3.5-5.2); Alkaline Phosphatase 157 U/L (35-105); Anion Gap 18.1 (5-19); Aspartate Amino Transferase 23 U/L (0-32); Blood Urea Nitrogen 20 mg/dL (6-20); Calcium 9.8 mg/dL (8.5-10.5); Carbon Dioxide 22 mmol/L (22-29); Chloride 100 mmol/L (98-107); Globulin 3.4 g/dL (1.3-4.6); Glomerular Filtration Rate 40.1 mL/min (90-130); Glucose 119 mg/dL (65-115); Osmolality Calculated 286 mOsm/kg (285-295); Potassium 4.1 mmol/L (3.5-5.1); Sodium 136 mmol/L (136-145); Total Bilirubin 0.4 mg/dL (0.15-1.2); Total Protein 7.2 g/dL (6.6-8.7)
[2023-09-06 17:37] LABS: Influenza A by IFA negative (Negative); Influenza B by IFA negative (Negative)
[2023-09-06 17:38] LABS: SARS Covid-2 Antigen negative (Negative)
[2023-09-06 17:56] LABS: Bilirubin Urine Neg (Negative); Blood Urine 2+ (Negative); Glucose Urine UA Norm (Normal); Ketones Urine Negative (Negative); Nitrate Urine Negative (Negative); Protein Urine 2+ (Negative); Specific Gravity, Urine 1.015 (1.005-1.030); Urine Appearance Cloudy (CLEAR); Urine Color Yellow (Yellow); Urobilinogen Urine Norm (Negative); pH Urine 5 (5-7)
[2023-09-06 17:57] LABS: Add Urine Microscopic? YES; Leukocyte Esterase Urine 1+ (Negative)
[2023-09-06] MEDS: promethazine 25 mg Tablet PO (17:57)
--- NOTE | 2023-09-06 18:00 | PC.NURSE ---
Medication Delay: second bag of LR delayed d/t first bag not finished infusing yet.
[2023-09-06 18:07] LABS: Bacteria Urine TRACE /hpf; Mucus Urine 2+ /hpf; Squamous Epithelial Cell Urine 0-4 /hpf (0-5); Transitional Epi Cells Urine 0-4 /hpf; WBC Urine 55-80 /hpf (0-5)
[2023-09-06 18:08] LABS: Add Urine Culture? Yes; Other Casts Urine WBC CAST 5-10 /lpf; Oval Fat Bodies Urine 1+ /hpf
[2023-09-06 18:44] LABS: Lactic Sepsis W/Reflex 1.4 mmol/L (0.5-2.2)
[2023-09-06] MEDS: cefepime 1,000 MG in sodium chloride 0.9% (plus) 50 ML 100 MG IV (18:48)
--- NOTE | 2023-09-06 19:53 | P.HP_ITS ---
Providers/Chief Complaint 2 Primary Care Provider: Serg Altman DO Chief Complaint: fever History of Present Illness Erica Marlow is a 48 year old female with a past medical history significant for triple negative breast cancer status post mastectomy w/ reconstruction, chemotherapy and radiation currently on immuno treatment with Keytruda (last dose yesterday) who presents to the emergency department with fevers and rigors. Symptoms seemed of started on Monday and waxed and waned. She reports he was found to have dehydration with a creatinine 1.2 yesterday during treatment. She received IV fluids. She endorses associated symptom poor oral intake and fatigue. In the emergency department, patient was found to be febrile to 102.7. Her oncology team in [place] was contacted recommending admission for cefepime. Further workup in the emergency department revealed urinalysis concerning for urinary tract infection. Patient endorses symptoms of back discomfort. Denies other lower urinary symptoms. Of note, she was admitted in June for pyelonephritis. Review of Systems 2 Narrative: Patient endorses nonproductive cough for which her radiation oncologist called in steroids which patient has not yet picked up due to her acute illness. Otherwise, a complete review of systems was obtained and is negative except as stated in HPI. Medications/Allergies Home Medications Medication Instructions Recorded Confirmed Last Taken Type losartan 50 mg tablet 50 mg PO QAM 09/22/22 07/26/23 07/25/23 History lorazepam 1 mg tablet 0.5 - 1 mg (0.5 - 1 x 1 mg) PO Q6H 04/06/23 07/26/23 Unknown Rx PRN Severe Nausea #30 tabs promethazine 25 mg tablet 25 mg PO Q6H PRN nausea and 05/01/23 07/26/23 07/26/23 Rx vomiting #30 tabs lidocaine-prilocaine 2.5 %-2.5 % See Rx Instructions .Route .COMPLEX 07/08/23 07/26/23 Unknown History topical cream omeprazole 20 mg capsule,delayed 20 mg PO QPM 07/08/23 07/26/23 07/25/23 History release sumatriptan succinate 100 mg tablet 50 mg PO DAILY PRN Migraine 07/08/23 07/26/23 Unknown History Headache ibuprofen 200 mg tablet 600 mg PO Q6H PRN Pain 07/26/23 07/26/23 07/25/23 History loratadine 10 mg tablet (Claritin) 10 mg PO DAILY 07/26/23 07/26/23 07/25/23 History Allergies Allergy/AdvReac Type Severity Reaction Status Date / Time adhesive Allergy ALGY-Bliste Verified 07/26/23 09:16 r ciprofloxacin [From Cipro] Allergy Unknown Verified 07/26/23 09:16 prochlorperazine Allergy Unknown Verified 07/26/23 09:16 [From Compazine] Sulfa (Sulfonamide Allergy Unknown Verified 07/26/23 09:16 Antibiotics) PFSH Acute 2 PFSH: Medical History Pyelonephritis Chemotherapy induced neutropenia Breast cancer Surgical History H/O mastectomy History of left breast biopsy Family History Grandfather Cancer Prostate Father Diabetes Hypertension Mother Diabetes Hypertension Other CAD (coronary artery disease) Denies family history of Clotting disorder Dementia Hyperlipidemia Psychiatric illness Chronic kidney disease (CKD) Suicide Anesthesia complication Bleeding disorder Lung disease Stroke Social History Smoking and tobacco/nicotine status: never used tobacco/nicotine Alcohol intake: current Alcohol intake frequency: few times a month Vitals/I&O/Wt Last Vital Signs Temp 102.7 F H 09/06/23 16:12 Pulse 116 H 09/06/23 19:35 Resp 16 09/06/23 17:05 BP 132/63 09/06/23 19:35 Pulse Ox 94 09/06/23 19:35 O2 Del Method Room Air 09/06/23 16:53 09/06/23 09/06/23 09/06/23 06:59 14:59 22:59 Intake Total 1000 / 1000 Balance 1000 / 1000 Weight last 48 hrs Weight 88.904 kg Physical Exam 2 Narrative: General: Patient is awake. Appears fatigued but very pleasant. Head: Normocephalic. Atraumatic. EOM intact. Dry mucous membranes. Neck: No JVD. Cardiovascular: Tachycardic. Rhythm is regular. No gallops. No murmurs. Lungs: Clear to auscultation, no use of accessory muscles, no crackles or wheezes. Skin: No jaundice. No rashes. Abdomen: Normal bowel sounds, abdomen soft and nontender. Extremities: No cyanosis or clubbing. Musculoskeletal: Normal muscular development demographic. Neurological: Moves all 4 extremities. No myoclonus. Data 09/06/23 16:54 09/06/23 16:54 Micro: Microbiology 09/06/23 16:57 Blood Culture - Preliminary Blood SPECIMEN COLLECTED 09/06/23 16:54 Blood Culture - Preliminary Blood SPECIMEN COLLECTED A&P Assessment and plan (1) Sepsis: SIRS: Tachycardic, Febrile Source: acute complicated urinary tract infection Endorgan damage: Acute kidney injury Status post IVF boluses greater than 30 mL/kg body weight Blood cultures x 2 Urine culture Start cefepime Qualifiers: Sepsis type: sepsis due to unspecified organism Sepsis acute organ dysfunction status: with acute organ dysfunction Severe sepsis acute organ dysfunction type: acute renal failure Acute renal failure type: unspecified S evere sepsis shock status: without septic shock Qualified Code(s): A41.9 - Sepsis, unspecified organism; R65.20 - Severe sepsis without septic shock; N17.9 - Acute kidney failure, unspecified (2) Fever: Tylenol as needed Avoid NSAIDs if possible due to MAX Qualifiers: Fever type: unspecified Qualified Code(s): R50.9 - Fever, unspecified (3) UTI (urinary tract infection): Prior cultures reviewed, no data to guide therapy Cefepime as above Qualifiers: Hematuria presence: with hematuria Urinary tract infection type: acute cystitis Qualified Code(s): N30.01 - Acute cystitis with hematuria (4) MAX (acute kidney injury): Suspected prerenal in the setting of sepsis and poor oral intake Status post IV fluid boluses Avoid nephrotoxins Hold losartan and ibuprofen Maintenance fluids Encourage oral intake as tolerated Antiemetics as needed (5) Triple negative breast carcinoma: Immunosuppressed due to malignancy and active immuno treatments Follows at [facility], oncology team reportedly contacted by ED provider recommending admission Status post Keytruda infusion on 09/05 (6) Cough: Chest x-ray reviewed, no acute findings Possibly secondary to radiation treatment, prednisone prescription pending radiation oncology as outpatient Qualifiers: Cough type: unspecified Qualified Code(s): R05.9 - Cough, unspecified Plan DVT prophylaxis: Lovenox CODE STATUS: Full code Attestations 2 Medical Necessity Statement*: Patient is immunosuppressed on active treatment with Keytruda for triple negative breast cancer who presents with rigors/fevers, found to have sepsis secondary to UTI expected hospitalization not to cross 2 midnights for initiation of IV antibiotics, IV fluids and cultures. Coding Level of Care Code Acute Code for g Fwd Diagnoses Sepsis with acute renal failure without septic shock, due to unspecified organism, unspecified acute renal failure type A41.9; R65.20; N17.9 Sepsis type: sepsis due to unspecified organism Sepsis acute organ dysfunction status: with acute organ dysfunction Severe sepsis acute organ dysfunction type: acute renal failure Acute renal failure type: unspecified Severe sepsis shock status: without septic shock Fever R50.9 Fever type: unspecified UTI (urinary tract infection) N30.01 Hematuria presence: with hematuria Urinary tract infection type: acute cystitis MAX (acute kidney injury) N17.9 Triple negative breast carcinoma C50.919; Z17.1 Cough, unspecified type R05.9 Cough type: unspecified
[2023-09-06 21:08] LABS: Procalcitonin 1.06 ng/mL (0-0.5)
[2023-09-06] MEDS: dextrose 5%-sod chloride 0.45% 1,000 ML 75 ML IV (21:48)
[2023-09-07] VITALS (7 sets, daily range): BP systolic 100–141; BP diastolic 65–80; PULSE 83–125; RESP 16–20; TEMP 36.7–39.2; O2SAT 93–100
[2023-09-07] MEDS: cefepime 1,000 MG in sodium chloride 0.9% (plus) 50 ML 100 MG IV ×2 (01:46→09:54)
[2023-09-07 05:39] LABS: Basophils # 0.1 10^3/uL (0.0-0.1); Basophils % 0.6 %; Eosinophils # 0.1 10^3/uL (0.0-0.8); Eosinophils % 1.6 %; Hematocrit 31.5 % (36-47); Lymphocytes # 0.5 10^3/uL (0.8-4.8); Lymphocytes % 6.3 %; Mean Corpuscular HGB Conc 33.3 g/dL (30-55); Mean Corpuscular Hemoglobin 29.3 pg (27-33); Mean Platelet Volume 9.1 fL (7.4-10.4); Monocytes # 0.9 10^3/uL (0.2-0.9); Monocytes % 10.2 %; Neutrophils # 6.87 10^3/uL (1.8-7.7); Neutrophils % 80.8 %; Nucleated Red Blood Cells % 0 %; Platelet Count 234 10^3/cmm (157-399); Red Blood Count 3.58 10^6/uL (3.85-5.65); Red Cell Distribution Width 11.3 % (12.1-15.1); White Blood Count 8.51 10^3/uL (3.29-11.43)
[2023-09-07 05:59] LABS: Alanine Aminotransferase 20 U/L (0-33); Albumin Level 3.3 g/dL (3.5-5.2); Alkaline Phosphatase 116 U/L (35-105); Aspartate Amino Transferase 20 U/L (0-32); Blood Urea Nitrogen 23 mg/dL (6-20); Calcium 8.8 mg/dL (8.5-10.5); Carbon Dioxide 23 mmol/L (22-29); Chloride 104 mmol/L (98-107); Globulin 2.9 g/dL (1.3-4.6); Glucose 118 mg/dL (65-115); Magnesium 1.8 mg/dL (1.7-2.3); Osmolality Calculated 293 mOsm/kg (285-295); Phosphorus 3.9 mg/dL (2.5-4.5); Sodium 139 mmol/L (136-145); Total Bilirubin 0.4 mg/dL (0.15-1.2); Total Protein 6.2 g/dL (6.6-8.7)
[2023-09-07] MEDS: enoxaparin 40 mg/0.4 mL Syringe SUBCUT (08:02)
--- NOTE | 2023-09-07 08:06 | CTR_ITS ---
PROCEDURE INFORMATION: Exam: CT Abdomen And Pelvis Without Contrast Exam date and time: 09/07/2023 8:37 AM Age: 48 years old Clinical indication: Abdominal pain; Prior surgery; Surgery date: 6+ months; Surgery type: Hysterectomy; Additional info: Pyelo TECHNIQUE: Imaging protocol: Computed tomography of the abdomen and pelvis without contrast. Radiation optimization: All CT scans at this facility use at least one of these dose optimization techniques: automated exposure control; mA and/or kV adjustment per patient size (includes targeted exams where dose is matched to clinical indication); or iterative reconstruction. COMPARISON: CT kidney stone [id number] 07/08/2023 7:19 AM RADIATION DOSE METRICS: Total DLP (mGy-cm): 815.93 FINDINGS: Liver: Normal. No mass. Gallbladder and bile ducts: Normal. No calcified stones. No ductal dilation. Pancreas: Normal. No ductal dilation. Spleen: Normal. No splenomegaly. Adrenal glands: Normal. No mass. Kidneys and ureters: Evaluation of the kidneys is limited by a lack of IV contrast. There is mild perinephric and periureteral stranding bilaterally compatible with a urinary tract infection and or pyelonephritis. There are no obstructive changes. Stomach and bowel: Unremarkable. No obstruction. No mucosal thickening. Appendix: No evidence of appendicitis. Intraperitoneal space: Unremarkable. No free air. No significant fluid collection. Vasculature: Unremarkable. No abdominal aortic aneurysm. Lymph nodes: Unremarkable. No enlarged lymph nodes. Urinary bladder: Unremarkable as visualized. Reproductive: Unremarkable as visualized. Bones/joints: Unremarkable. No acute fracture. Soft tissues: Unremarkable. CT/CT abdomen pelvis wo con [id number] IMPRESSION: Perinephric and periureteral stranding, nonspecific but compatible with the diagnosis of pyelonephritis.
[2023-09-07] MEDS: metoclopramide 5 mg/mL SDV 2 mL IVP ×2 (08:32→17:07)
[2023-09-07] MEDS: loratadine 10 mg Tablet PO (09:53)
--- NOTE | 2023-09-07 11:55 | P.PN_ITS ---
Subjective 2 Subjective: Requested CT abdomen pelvis to rule out pyonephritis My concern is related pyelonephritis Febrile episodes Patient is on Keytruda for her breast cancer Vitals/I&O/Wt Last Vital Signs Temp 98.6 F 09/07/23 11:35 Pulse 107 H 09/07/23 11:35 Resp 16 09/07/23 11:35 BP 132/77 09/07/23 11:35 Pulse Ox 97 09/07/23 11:35 O2 Del Method Room Air 09/07/23 11:35 09/06/23 09/07/23 09/07/23 22:59 06:59 14:59 Intake Total 2049 600 / 2650 50 / 50 Output Total 400 / 400 900 / 900 Balance 2049 200 / 2250 -850 / -850 Weight last 48 hrs Weight 94.12 kg Weight 95.254 kg Weight 88.904 kg Physical Exam 2 Narrative: Pleasant Complaining of pain in her back GCS 15 Nonfocal neuroexam Hemodynamically stable S1, S2 Currently on room air Data 09/07/23 05:25 09/07/23 05:25 Micro: Microbiology 09/06/23 16:57 Blood Culture - Preliminary Blood SPECIMEN COLLECTED 09/06/23 16:54 Blood Culture - Preliminary Blood SPECIMEN COLLECTED A&P Assessment and plan (1) Acid reflux: (2) MAX (acute kidney injury): (3) UTI (urinary tract infection): Qualifiers: Hematuria presence: with hematuria Urinary tract infection type: acute cystitis Qualified Code(s): N30.01 - Acute cystitis with hematuria (4) Sepsis: Qualifiers: Acute renal failure type: unspecified Sepsis acute organ dysfunction status: with acute organ dysfunction Sepsis type: sepsis due to unspecified organism Severe sepsis acute organ dysfunction type: acute renal failure S evere sepsis shock status: without septic shock Qualified Code(s): A41.9 - Sepsis, unspecified organism; R65.20 - Severe sepsis without septic shock; N17.9 - Acute kidney failure, unspecified (5) Pyelonephritis: (6) Fever: Qualifiers: Fever type: unspecified Qualified Code(s): R50.9 - Fever, unspecified Plan Pyelonephritis Sepsis related to pyelonephritis Continue antibiotics I will change the dose of cefepime to 2 g every 12 hours She has pyelonephritis evident on CT abdomen pelvis Will stay until this weekend Will follow-up with urine and blood cultures Patient is immunocompromise Currently on full CODE STATUS No dietary or activity restriction Attestations 2 Medical Necessity Statement*: Continue medical management Diagnoses Acid reflux K21.9 MAX (acute kidney injury) N17.9 UTI (urinary tract infection) N30.01 Hematuria presence: with hematuria Urinary tract infection type: acute cystitis Sepsis with acute renal failure without septic shock, due to unspecified organism, unspecified acute renal failure type A41.9; R65.20; N17.9 Acute renal failure type: unspecified Sepsis acute organ dysfunction status: with acute organ dysfunction Sepsis type: sepsis due to unspecified organism Severe sepsis acute organ dysfunction type: acute renal failure Severe sepsis shock status: without septic shock Pyelonephritis N12 Fever R50.9 Fever type: unspecified
[2023-09-07] MEDS: sodium chloride 0.9% 1,000 ML 75 ML IV (13:07)
[2023-09-07] MEDS: pantoprazole DR 40 mg Tablet PO (17:07)
[2023-09-07] MEDS: acetaminophen 500 mg Tablet 1000 MG PO (17:07)
--- OUTSIDE RECORDS SUMMARY | 2023-09-07 17:27 | XMS_ITS | Patient Health Record ---
Author Name Unknown Organization [facility] Address [address] [place] [address] Support Name Relationship Address Phone Erica Marlow Guarantor Unknown [phone] ALLERGIES Allergen (clinical drug ingredient) Drug/Non Drug Allergy documented on EMR Reaction Allergy Type Onset Date Status prochlorperazine Prochlorperazine , , Drug Allergy Active sulfadiazine Sulfadiazine , Drug Allergy A ctive REASON FOR REFERRAL No Information SOCIAL HISTORY Sex Assigned At : Social History Observation Description Sex Assigned At Unknown PLAN OF TREATMENT No Information
[2023-09-07] MEDS: cefepime 2,000 MG in sodium chloride 0.9% (plus) 50 ML 100 MG IV (21:33)
[2023-09-08] VITALS: BP 124/79; PULSE 81; RESP 18; TEMP 36.8; O2SAT 99
[2023-09-08] MEDS: sodium chloride 0.9% 1,000 ML 75 ML IV (02:38)
[2023-09-08] MEDS: SUMAtriptan 25 mg Tablet PO (02:46)
[2023-09-08 04:00] VITALS: BP 136/86; PULSE 107; RESP 16; TEMP 37.2; O2SAT 94
[2023-09-08 05:50] LABS: Basophils % 0.6 %; Eosinophils # 0.4 10^3/uL (0.0-0.8); Eosinophils % 5.8 %; Hematocrit 29.7 % (36-47); Lymphocytes # 0.5 10^3/uL (0.8-4.8); Mean Corpuscular HGB Conc 33.7 g/dL (30-55); Mean Corpuscular Hemoglobin 29.9 pg (27-33); Mean Corpuscular Volume 88.9 fl (85-98); Mean Platelet Volume 9.1 fL (7.4-10.4); Monocytes # 0.7 10^3/uL (0.2-0.9); Monocytes % 10.3 %; Neutrophils # 4.86 10^3/uL (1.8-7.7); Neutrophils % 74.8 %; Nucleated Red Blood Cells % 0 %; Platelet Count 205 10^3/cmm (157-399); Red Blood Count 3.34 10^6/uL (3.85-5.65); Red Cell Distribution Width 11.5 % (12.1-15.1)
[2023-09-08 06:00] VITALS: BMI 33.0
[2023-09-08 06:08] LABS: Anion Gap 13.8 (5-19); Blood Urea Nitrogen 19 mg/dL (6-20); Calcium 8.4 mg/dL (8.5-10.5); Carbon Dioxide 24 mmol/L (22-29); Chloride 107 mmol/L (98-107); Glomerular Filtration Rate 34.4 mL/min (90-130); Glucose 131 mg/dL (65-115); Osmolality Calculated 296 mOsm/kg (285-295); Potassium 3.8 mmol/L (3.5-5.1); Sodium 141 mmol/L (136-145)
[2023-09-08 08:00] VITALS: BP 131/81; PULSE 100; RESP 16; TEMP 37.1; O2SAT 97
[2023-09-08] MEDS: loratadine 10 mg Tablet PO (09:38)
[2023-09-08] MEDS: enoxaparin 40 mg/0.4 mL Syringe SUBCUT (09:38)
[2023-09-08] MEDS: metoclopramide 5 mg/mL SDV 2 mL IVP (09:39)
[2023-09-08] MEDS: cefepime 2,000 MG in sodium chloride 0.9% (plus) 50 ML 100 MG IV ×2 (09:43→22:36)
--- NOTE | 2023-09-08 11:13 | P.PN_ITS ---
Subjective 2 Subjective: Afebrile No leukocytosis Patient is not vomiting I will go to 48 hours on IV antibiotics Patient is willing to go home by tomorrow if remains stable, I still do not have final culture report Vitals/I&O/Wt Last Vital Signs Temp 98.7 F 09/08/23 08:00 Pulse 100 09/08/23 08:00 Resp 16 09/08/23 08:00 BP 131/81 09/08/23 08:00 Pulse Ox 97 09/08/23 08:00 O2 Del Method Room Air 09/08/23 08:00 09/07/23 09/08/23 09/08/23 22:59 06:59 14:59 Intake Total 50 / 1340 1220 / 2560 150 / 150 Output Total 600 / 2100 1200 / 3300 1700 / 1700 Balance -550 / -760 20 / -740 -1550 / -1550 Weight last 48 hrs Weight 95.572 kg Weight 94.12 kg Weight 95.254 kg Weight 88.904 kg Physical Exam 2 Narrative: Awake and alert Tolerating diet GCS 15 Complaining of dry hacking cough S1, S2 GCS 15 Data 09/08/23 05:44 09/08/23 05:44 Micro: Microbiology 09/06/23 16:57 Blood Culture - Preliminary Blood NEGATIVE TO DATE 09/06/23 16:54 Blood Culture - Preliminary Blood NEGATIVE TO DATE 09/06/23 16:48 Group A Streptococcus Rapid Screen - Preliminary Throat A&P Assessment and plan (1) Pyelonephritis: (2) Sepsis: Qualifiers: Acute renal failure type: unspecified Sepsis acute organ dysfunction status: with acute organ dysfunction Sepsis type: sepsis due to unspecified organism Severe sepsis acute organ dysfunction type: acute renal failure S evere sepsis shock status: without septic shock Qualified Code(s): A41.9 - Sepsis, unspecified organism; R65.20 - Severe sepsis without septic shock; N17.9 - Acute kidney failure, unspecified (3) Cough: Qualifiers: Cough type: unspecified Qualified Code(s): R05.9 - Cough, unspecified (4) Fever: Qualifiers: Fever type: unspecified Qualified Code(s): R50.9 - Fever, unspecified (5) MAX (acute kidney injury): Plan Pyelonephritis related sepsis Improving No fever today Will give 48 hours on antibiotics Cultures are pending I might be able to l discharge her by tomorrow on oral antibiotics Dry hacking cough added steroids and doxycycline MAX improving tolerating diet discontinue IV fluids Attestations 2 Medical Necessity Statement*: Discharge tomorrow Diagnoses Pyelonephritis N12 Sepsis with acute renal failure without septic shock, due to unspecified organism, unspecified acute renal failure type A41.9; R65.20; N17.9 Acute renal failure type: unspecified Sepsis acute organ dysfunction status: with acute organ dysfunction Sepsis type: sepsis due to unspecified organism Severe sepsis acute organ dysfunction type: acute renal failure Severe sepsis shock status: without septic shock Cough, unspecified type R05.9 Cough type: unspecified Fever R50.9 Fever type: unspecified MAX (acute kidney injury) N17.9
[2023-09-08 11:56] VITALS: BP 131/86; PULSE 97; RESP 16; TEMP 36.9; O2SAT 96
[2023-09-08] MEDS: predniSONE 20 mg Tablet 40 MG PO (12:01)
[2023-09-08] MEDS: doxycycline 100 mg Tablet PO ×2 (12:01→17:11)
[2023-09-08] MEDS: acetaminophen 500 mg Tablet 1000 MG PO (12:01)
[2023-09-08 16:00] VITALS: BP 136/88; PULSE 94; RESP 16; TEMP 36.6; O2SAT 97
[2023-09-08] MEDS: pantoprazole DR 40 mg Tablet PO (17:11)
[2023-09-08 20:00] VITALS: BP 156/80; PULSE 111; RESP 16; TEMP 36.8; O2SAT 96
[2023-09-09] VITALS: BP 109/70; PULSE 86; RESP 16; TEMP 37; O2SAT 99
[2023-09-09 04:00] VITALS: BP 127/70; PULSE 91; RESP 15; TEMP 37.1; O2SAT 99
[2023-09-09 04:20] LABS: Basophils % 0.2 %; Eosinophils % 0.2 %; Hematocrit 28.8 % (36-47); Lymphocytes # 0.4 10^3/uL (0.8-4.8); Mean Corpuscular Hemoglobin 29.2 pg (27-33); Mean Corpuscular Volume 88.6 fl (85-98); Monocytes # 0.4 10^3/uL (0.2-0.9); Monocytes % 7.5 %; Neutrophils # 4.86 10^3/uL (1.8-7.7); Neutrophils % 84.8 %; Nucleated Red Blood Cells % 0 %; Platelet Count 215 10^3/cmm (157-399); Red Blood Count 3.25 10^6/uL (3.85-5.65); Red Cell Distribution Width 11.1 % (12.1-15.1); White Blood Count 5.73 10^3/uL (3.29-11.43)
[2023-09-09 04:45] LABS: Anion Gap 14.6 (5-19); Blood Urea Nitrogen 21 mg/dL (6-20); Calcium 9.1 mg/dL (8.5-10.5); Carbon Dioxide 23 mmol/L (22-29); Chloride 105 mmol/L (98-107); Glomerular Filtration Rate 43.7 mL/min (90-130); Glucose 123 mg/dL (65-115); Osmolality Calculated 292 mOsm/kg (285-295); Potassium 3.6 mmol/L (3.5-5.1); Sodium 139 mmol/L (136-145)
[2023-09-09 06:00] VITALS: BMI 33.0
[2023-09-09 07:16] VITALS: BP 124/81; PULSE 86; RESP 16; TEMP 36.8; O2SAT 98
[2023-09-09] MEDS: predniSONE 20 mg Tablet 40 MG PO (08:40)
[2023-09-09] MEDS: doxycycline 100 mg Tablet PO (08:40)
[2023-09-09] MEDS: loratadine 10 mg Tablet PO (08:40)
--- NOTE | 2023-09-09 08:42 | P.DS_ITS ---
Discharge Providers Date of Admission: 09/06/23 20:18 Date of Discharge: September 09, 2023 Attending Provider at Admission: Kwame Landers MD Attending Provider at Discharge: Parisa Lopez MD Primary Care Provider: Serg Altman DO Diagnoses at Discharge Discharge Diagnosis (1) Pyelonephritis: Status: Acute (2) Sepsis: Status: Acute Qualifiers: Acute renal failure type: unspecified Sepsis acute organ dysfunction status: with acute organ dysfunction Sepsis type: sepsis due to unspecified organism Severe sepsis acute organ dysfunction type: acute renal failure Severe sepsis shock status: without septic shock Qualified Code(s): A41.9 - Sepsis, unspecified organism; R65.20 - Severe sepsis without septic shock; N17.9 - Acute kidney failure, unspecified (3) Cough: Status: Acute Qualifiers: Cough type: unspecified Qualified Code(s): R05.9 - Cough, unspecified (4) Fever: Status: Acute Qualifiers: Fever type: unspecified Qualified Code(s): R50.9 - Fever, unspecified (5) MAX (acute kidney injury): Status: Acute Reason for Visit Reason for Visit: fever Hospital Course Hospital Course 48-year-old female with a history of breast cancer, currently on Keytruda was admitted for management of sepsis related to pyelonephritis, her fever subsided with use of antibiotics, she was improving clinically, MAX was related to sepsis and pyonephritis creatinine on the day of discharge is 1.3 it peaked at 1.8, she has been afebrile 48 hours before her discharge, blood culture. Report negative to date, urine culture showing possibility of gram-negative blas, I will give her 14-day regimen of cefpodoxime Physical Exam Narrative: Awake and alert GCS 15 Euvolemic S1, S2 Discharge Data Studies Completed and Pending Completed Studies During Hospitalization Category Date Time Status CT abdomen pelvis wo con [id number] Routine Cat Scan 09/07/23 08:06 Completed XR chest 1V portable [id number] Stat Exams 09/06/23 16:29 Completed Pending at discharge Category Date Time Status Blood Culture Stat Lab 09/06/23 16:57 Results Urine Culture Stat Lab 09/06/23 17:33 Results Radiology Impressions Chest X-Ray 09/06/23 16:29 IMPRESSION: No acute findings. Abdomen/Pelvis CT 09/07/23 08:06 IMPRESSION: Perinephric and periureteral stranding, nonspecific but compatible with the diagnosis of pyelonephritis. Laboratory Results WBC 5.73 10^3/uL (3.29-11.43) 09/09/23 02:56 RBC 3.25 10^6/uL (3.85-5.65) L 09/09/23 02:56 Hgb 9.50 g/dL (11.27-16.99) L 09/09/23 02:56 Hct 28.8 % (36-47) L 09/09/23 02:56 MCV 88.6 fl (85-98) 09/09/23 02:56 MCH 29.2 pg (27-33) 09/09/23 02:56 MCHC 33.0 g/dL (30-55) 09/09/23 02:56 RDW 11.1 % (12.1-15.1) L 09/09/23 02:56 Plt Count 215 10^3/cmm (157-399) 09/09/23 02:56 MPV 10.0 fL (7.4-10.4) 09/09/23 02:56 Neut % (Auto) 84.8 % 09/09/23 02:56 Lymph % (Auto) 7.0 % 09/09/23 02:56 [place] % (Auto) 7.5 % 09/09/23 02:56 Eos % (Auto) 0.2 % 09/09/23 02:56 Baso % (Auto) 0.2 % 09/09/23 02:56 Neut # (Auto) 4.86 10^3/uL (1.8-7.7) 09/09/23 02:56 Lymph # (Auto) 0.4 10^3/uL (0.8-4.8) L 09/09/23 02:56 [place] # (Auto) 0.4 10^3/uL (0.2-0.9) 09/09/23 02:56 Eos # (Auto) 0.0 10^3/uL (0.0-0.8) 09/09/23 02:56 Baso # (Auto) 0.0 10^3/uL (0.0-0.1) 09/09/23 02:56 Nucleated RBC % (auto) 0 % 09/09/23 02:56 Nucleated RBCs # 0.0 /100WBC 09/09/23 02:56 Sodium 139 mmol/L (136-145) 09/09/23 02:56 Potassium 3.6 mmol/L (3.5-5.1) 09/09/23 02:56 Chloride 105 mmol/L (98-107) 09/09/23 02:56 Carbon Dioxide 23 mmol/L (22-29) 09/09/23 02:56 Anion Gap 14.6 (5-19) 09/09/23 02:56 BUN 21 mg/dL (6-20) H 09/09/23 02:56 Creatinine 1.3 mg/dL (0.5-0.9) H 09/09/23 02:56 GFR Calculation 43.7 mL/min (90-130) L 09/09/23 02:56 Glucose 123 mg/dL (65-115) H 09/09/23 02:56 Calculated Osmolality 292 mOsm/kg (285-295) 09/09/23 02:56 Lactic Acid 1.4 mmol/L (0.5-2.2) 09/06/23 16:54 Calcium 9.1 mg/dL (8.5-10.5) 09/09/23 02:56 Phosphorus 3.9 mg/dL (2.5-4.5) 09/07/23 05:25 Magnesium 1.8 mg/dL (1.7-2.3) 09/07/23 05:25 Total Bilirubin 0.4 mg/dL (0.15-1.2) 09/07/23 05:25 AST 20 U/L (0-32) 09/07/23 05:25 ALT 20 U/L (0-33) 09/07/23 05:25 Alkaline Phosphatase 116 U/L (35-105) H 09/07/23 05:25 Total Protein 6.2 g/dL (6.6-8.7) L 09/07/23 05:25 Albumin 3.3 g/dL (3.5-5.2) L 09/07/23 05:25 Globulin 2.9 g/dL (1.3-4.6) 09/07/23 05:25 Procalcitonin 1.06 ng/mL (0-0.5) H 09/06/23 16:54 Urine Color Yellow (Yellow) 09/06/23 17:33 Urine Appearance Cloudy (CLEAR) A 09/06/23 17:33 Urine pH 5 (5-7) 09/06/23 17:33 Ur Specific [place] 1.015 (1.005-1.030) 09/06/23 17:33 Urine Protein 2+ (Negative) H 09/06/23 17:33 Urine Glucose (UA) Norm (Normal) 09/06/23 17:33 Urine Ketones Negative (Negative) 09/06/23 17:33 Urine Blood 2+ (Negative) H 09/06/23 17:33 Urine Nitrate Negative (Negative) 09/06/23 17:33 Urine Bilirubin Neg (Negative) 09/06/23 17:33 Urine Urobilinogen Norm mg/dL (Negative) 09/06/23 17:33 Ur Leukocyte Esterase 1+ (Negative) H 09/06/23 17:33 Urine RBC 10-15 /hpf (0-2) H 09/06/23 17:33 Urine WBC 55-80 /hpf (0-5) H 09/06/23 17:33 Ur Squamous Epith Cells 0-4 /hpf (0-5) H 09/06/23 17:33 Ur Transition Epith Cell 0-4 /hpf 09/06/23 17:33 Amorphous Sediment Not Reportable 09/06/23 17:33 Urine Bacteria Trace /hpf (NONE) 09/06/23 17:33 Other Casts Wbc cast 5-10 /lpf 09/06/23 17:33 Urine Mucus 2+ /hpf 09/06/23 17:33 Ur Oval Fat Bodies 1+ /hpf 09/06/23 17:33 Influenza Type A Ag negative (Negative) 09/06/23 16:49 Influenza Type B Ag negative (Negative) 09/06/23 16:49 SARS-CoV-2 Ag (Rapid) negative (Negative) 09/06/23 16:48 Group A Strep Rapid Negative (Negative) 09/06/23 16:48 Vitals Last Vital Signs Temp 98.2 F 09/09/23 07:16 Pulse 86 09/09/23 07:16 Resp 16 09/09/23 07:16 BP 124/81 09/09/23 07:16 Pulse Ox 98 09/09/23 07:16 O2 Del Method Room Air 02/10/24 07:16 Discharge Plan Discharge Patient Disposition: Home Condition: Stable Prescriptions: New cefpodoxime 200 mg tablet 200 mg PO BID Qty: 28 0RF Rx Instructions: must administer with a meal/food doxycycline hyclate 100 mg tablet 100 mg PO BID 3 Days Qty: 6 0RF methylprednisolone [Medrol (Raul)] 4 mg tablets,dose pack See Rx Instructions .ROUTE .COMPLEX Qty: 21 0RF Rx Instructions: orally per package directions Continued lorazepam 1 mg tablet 0.5 - 1 mg PO Q6H PRN (Reason: Severe Nausea) Qty: 30 3RF promethazine 25 mg tablet 25 mg PO Q6H PRN (Reason: nausea and vomiting) Qty: 30 3RF loratadine [Claritin] 10 mg Tablet 10 mg PO DAILY sumatriptan succinate 100 mg tablet 50 mg PO DAILY PRN (Reason: Migraine Headache) lidocaine-prilocaine 2.5-2.5 % cream See Rx Instructions .ROUTE .COMPLEX Rx Instructions: apply 30 minutes prior to port access omeprazole 20 mg capsule,delayed release(DR/EC) 20 mg PO QPM Held losartan 50 mg tablet 50 mg PO QAM Hold Instructions: Resume on 09/11/23. Because of your creatinine 1.3 we have held losartan for next few days Discontinued ibuprofen 200 mg Tablet 600 mg PO Q6H PRN (Reason: Pain) Discharge Orders: Discharge Order (Routine); Ordered 09/09/23 Ordered By: Parisa Lopez Referrals: Serg Altman DO [Primary Care Provider] - Patient Instructions: Opioid Safety, Pain Management Activity Restrictions/Additional Instructions: Please do not take ibuprofen or losartan because your creatinine is still high 1.3, give yourself at least 3 to 4 days before you resume these medications You can take Medrol pack and doxycycline for your upper respiratory tract infection and cough For pyelonephritis you will get 14-day treatment of cefpodoxime Discharge Attestations Time Spent in Discharge Care*: greater than 30 min Quality Metrics Clinical Quality Measures [ No reported AMI, CVA or VTE this stay] Coding Level of Care Code Acute Code for g Fwd Diagnoses Pyelonephritis N12 Sepsis with acute renal failure without septic shock, due to unspecified organism, unspecified acute renal failure type A41.9; R65.20; N17.9 Acute renal failure type: unspecified Sepsis acute organ dysfunction status: with acute organ dysfunction Sepsis type: sepsis due to unspecified organism Severe sepsis acute organ dysfunction type: acute renal failure Severe sepsis shock status: without septic shock Cough, unspecified type R05.9 Cough type: unspecified Fever R50.9 Fever type: unspecified MAX (acute kidney injury) N17.9
[2023-09-09 09:57] VITALS: BP 124/81; PULSE 86; RESP 16; TEMP 36.8; O2SAT 98
== END 2023-09-09 09:58 | disposition home or self-care (01) | DRG 871 ==
LOC: ER 19:42 → MEDSURG 20:31
PROVIDERS: Emergency Medicine; Admitting Provider Internal Medicine; Emergency Provider Emergency Medicine; PCP Electrodiagnostic Medicine; Visit Provider Internal Medicine
DX: A41.9 Sepsis, unspecified organism (principal); R65.21 Severe sepsis with septic shock; N17.9 Acute kidney failure, unspecified; N30.01 Acute cystitis with hematuria; N12 Tubulo-interstitial nephritis, not specified as acute or chronic; C50.919 Malignant neoplasm of unspecified site of unspecified female breast; Z17.1 Estrogen receptor negative status [ER-]; Z11.52 Encounter for screening for COVID-19; Z90.10 Acquired absence of unspecified breast and nipple; Z92.21 Personal history of antineoplastic chemotherapy; Z92.3 Personal history of irradiation; Z79.69 Long term (current) use of other immunomodulators and immunosuppressants; E86.0 Dehydration; R05.9 Cough, unspecified; K21.9 Gastro-esophageal reflux disease without esophagitis
CPT/HCPCS: 36415; 36591; 71045; 74176; 80048; 80053; 81001; 83605; 83735; 84100; 84145; 85025; 87040; 87081; 87086; 87426; 87804; 87880; 96365; 96372; 99285; J0692; J1650; J2765; J7030; J7120; J7512; J7799; Q0169